=== PATIENT | female | born 1930 | race Caucasian/White ===

== ENCOUNTER → 2016-09-16 | Outpatient (CLI) | payer MEDICARE, OTHER ==
[~2016-09-16] MED LIST: ASPI325T32 PO; ATOR10TA23 PO; AZIT250T94 PO; CALC1TAB98 PO; LEVO112T2 PO; METO50TA16 PO; SLOMAG PO; VALS160T20 PO
--- NOTE | 2016-09-16 15:24 | RADRPT ---
PROCEDURE: US bilateral lower extremity veins. CLINICAL INDICATION: Bilateral leg pain and swelling. TECHNIQUE: Multiple longitudinal and transverse images of the bilateral lower extremity veins were obtained with ruvalcaba scale and color Doppler imaging. The common femoral vein, femoral vein, and popl iteal vein were evaluated. 2D grayscale measurements with compression sonography, color Doppler, and pulsed Doppler with augmentation. COMPARISON: No prior studies are available for comparison. FINDINGS: The right common femoral, femoral and popliteal veins are normally compressible throughout. Color f low demonstrates normal filling of the vessels. Normal waveforms are visualized and there is normal response to augmentation. The left common femoral and femoral veins are normally compressible throughout. Color flow demonstr ates normal filling of the vessels. The left popliteal vein is completely thrombosed with lack of flow and lack of compressibility. The left popliteal vein is dilated and contains echogenic thrombus. IMPRESSION: 1. Acute deep venous thrombosis of the left popliteal vein. 2. Otherwise normal bilateral lower extremity venous Doppler. Call report: A call report of the findings was made to Dr. Chinchilla on 09/16/2016 at 1515 hours. RPTAT: QQ .Ethan Restrepo MD, MD Date Time Electronically viewed and signed by .Ethan Restrepo MD, on 09/16/2016 15:24 .R/
== END | disposition home or self-care (01) ==
LOC: VAS 13:20
PROVIDERS: ATTEND Internal Medicine
DX: I82.432 Acute embolism and thrombosis of left popliteal vein (principal); R22.43 Localized swelling, mass and lump, lower limb, bilateral
CPT/HCPCS: 93970

== ENCOUNTER → 2016-09-19 | Outpatient (CLI) | payer MEDICARE, OTHER ==
[~2016-09-19] MED LIST changes: +IODIXANOL LOCM 100 ML BTL ONE; +IODIXANOL LOCM 50 ML BTL ONE; +SOD CHLORIDE 0.9% 100 ML ONE
--- NOTE | 2016-09-19 11:33 | RADRPT ---
PROCEDURE: CTA Chest and pulmonary angiogram. CLINICAL INDICATION: Chest pain and shortness of breath. TECHNIQUE: CT scan of the chest and CT pulmonary angiogram was performed on a multidetector high-r [employer] CT scanner. High-resolution thin slice coronal and sagittal imaging was obtained from the axial source images. 3-D volumetric rendered post processing was performed as well. The patient w as examined following the uncomplicated intravenous administration of 100 cc of Visipaque 320. The images were reviewed on a PACS workstation. The total exam CTDI equals 32.86, 13.31, and 2.40 and th e total exam DLP equals 666.48 mGy-cm. One or more of the following dose reduction techniques were used: Automated exposure control. Adjustment of the mA and/or kV according to patient size. Use of iterative reconstruction technique. COMPARISON: CT chest 04/20/2015. FINDINGS: CT chest: There is mild diffuse bronchial wall thickening. Minimal linear scarring is seen in the lung bases. No focal opacification, effusion, pneumothorax, edema, or nodules are seen. The central tracheobr onchial tree is clear. The mediastinum is unremarkable without evidence for mass or lymphadenopathy. The vascular structur es of the mediastinum are normal in course and caliber. There is markedly dilated right atrium. Th ere is small to moderate circumferential pericardial effusion. The axillary, subpectoral, and suprac lavicular regions are unremarkable. Imaging obtained through the upper abdomen is equally unremarkable. The adrenal glands are symmetri jose normal. The surrounding chest wall is unremarkable. The osseous structures are remarkable fo r degenerative spondylosis of the spine. CT pulmonary angiogram: No thrombus, clot, filling defect, or pulmonary web is identified. The pulmonary arteries are alisson l in caliber and morphology. No filling defect is present to suggest pulmonary embolism. There is no evidence for pulmonary arterial hypertension. IMPRESSION: 1. No evidence for pulmonary embolism. 2. Markedly dilated right atrium. Small to moderate circumferential pericardial effusion, not signi ficantly changed. 3. Mild diffuse bronchial wall thickening suggestive of nonspecific chronic inflammatory changes. No acute infiltrates. 4. Aortic and coronary artery calcifications. RPTAT: BB .Julian Galicia MD, MD Date Time Electronically viewed and signed by .Julian Galicia MD, on 09/19/2016 11:33 .O/
--- NOTE | 2016-09-19 11:49 | RADRPT ---
PROCEDURE: CT Abdomen and Pelvis with contrast. CLINICAL INDICATION: Abdominal pain TECHNIQUE: CT scan of the abdomen and pelvis with contrast was performed on a multi-detector high- resolution CT scanner. The patient was scanned following the uncomplicated intravenous administrati on of 100 cc of Visipaque 320. Coronal and sagittal reformatted images were obtained from the axial source images. Images were reviewed on a high-resolution PACS workstation. The total exam CTDI equa ls 32.86, 13.31, and 2.40 mGy and the total exam DLP equals 666.48 mGy-cm. One or more of the following dose reduction techniques were used: Automated exposure control. Adjustment of the mA and/or kV according to patient size. Use of iterative reconstruction technique. COMPARISON: CT abdomen and pelvis 01/14/2013 FINDINGS: CT abdomen: The lung bases are clear. The heart size is normal, without pericardial thickening or effusion. Th e liver is normal in size and density without focal mass or intrahepatic biliary dilatation. The sp sylvain is normal in size and homogeneous in density. The stomach is partially collapsed, but is gross ly unremarkable. The pancreas as visualized is normal. The gallbladder is surgically absent. There is no evidence for biliary dilatation. The adrenal glands are symmetric and normal. The kidneys a re symmetrically unremarkable as well. No renal calculus or obstructive uropathy or mass lesion is seen. The aorta is of normal caliber. Aortic vascular calcifications are present. There is no retroperit zaragoza lymphadenopathy. The dereje hepatis region is clear. The bowel and mesentery, as visualized, are equally unremarkable. CT pelvis: The small bowel loops situated within the pelvis are unremarkable. The pelvic organs are normal. T he pelvic sidewalls and inguinal regions are clear. The sigmoid colon and rectum are remarkable for sigmoid diverticulosis. No mass, lymphadenopathy, or free fluid is seen. No acute inflammation is seen. The bladder is normal. There is a right hip arthroplasty in anatomic alignment. There is mi ld dextroscoliosis of the lumbar spine centered at L2-L3. 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 The surrounding osseous structures are remarkable for multilevel degenerative changes i n the lower thoracic and lumbar spine. No osteolytic or osteoblastic lesion is detected. IMPRESSION: 1. No mass, lymphadenopathy, or focal acute inflammatory process is identified. 2. Status post cholecystectomy. No biliary ductal dilatation. 3. Aortoiliac atherosclerosis. 4. Unchanged incidental benign findings, as detailed above. RPTAT: BB .Julian Galicia MD, Date Time Electronically viewed and signed by .Julian Galicia MD, on 09/19/2016 11:48 .O/
== END | disposition home or self-care (01) ==
LOC: C/S 09:01
PROVIDERS: ATTEND Internal Medicine
DX: R07.9 Chest pain, unspecified (principal); R06.02 Shortness of breath; Z90.49 Acquired absence of other specified parts of digestive tract; I51.7 Cardiomegaly; I70.0 Atherosclerosis of aorta; I25.10 Atherosclerotic heart disease of native coronary artery without angina pectoris; R93.8 Abnormal findings on diagnostic imaging of other specified body structures
CPT/HCPCS: 71275; 74177; Q9967

== ENCOUNTER 2016-10-06 09:21 | Inpatient (IN) | payer MEDICARE, OTHER ==
[~2016-10-06] VITALS: Ht 167.6 cm; Wt 94.7 kg
[~2016-10-06 09:21] MED LIST changes: -IODIXANOL LOCM 100 ML BTL ONE; -IODIXANOL LOCM 50 ML BTL ONE; -SOD CHLORIDE 0.9% 100 ML ONE
--- NOTE | 2016-10-06 10:08 | RADRPT ---
PROCEDURE: Left foot series CLINICAL INDICATION: Left foot pain. TECHNIQUE: AP, oblique, and lateral views of the left foot were obtained. COMPARISON: None FINDINGS: No acute fracture or dislocations are seen. The osseous structures are well mineralized. The artic ular surfaces are normal. No soft tissue abnormalities are seen. Hammertoe deformities are seen. IMPRESSION: 1. No acute displaced fracture or dislocation. 2. Hammertoe deformities. RPTAT: HPNM Physician Ju Date Time Electronically viewed and signed by Physician Ju on 10/06/2016 10:07 /
--- NOTE | 2016-10-06 10:09 | RADRPT ---
PROCEDURE: XR Chest. CLINICAL INDICATION: Shortness of breath. TECHNIQUE: A single portable view of the chest was obtained. COMPARISON: 03/22/2014 FINDINGS: The aorta is tortuous and atherosclerotic. The cardiomediastinal silhouette is otherwise borderline enlarged. The lungs and pleural spaces are clear. The soft tissues and osseous structures demonst rate benign age related senescent changes. Left axillary surgical clips are once again seen. IMPRESSION: No acute cardiopulmonary disease. Borderline cardiomegaly. RPTAT: HPNM Physician Ju Date Time Electronically viewed and signed by Saurav Sen Physician on 10/06/2016 10:08 /
[2016-10-06 10:11] VITALS: TEMP 98.1
[2016-10-06] MEDS ORDERED: CALC500T91 PO (10:16)
[2016-10-06] MEDS ORDERED: FURO20TA3 PO (10:17)
[2016-10-06] MEDS ORDERED: VALS1TAB78 PO (10:19)
[2016-10-06] MEDS ORDERED: APIX5TAB PO (10:20)
[2016-10-06 10:21] LABS: ADD SCAN DIFF NO
[2016-10-06 10:27] LABS: BASOPHILS % 0.4 % (0.0-2.0); EOSINOPHILS # 0.5 10^3/ul (0.0-0.5); EOSINOPHILS % 4.8 % (0.0-7.0); HEMOGLOBIN 8.7 g/dl (12.0-16.0); LYMPHOCYTES # 1.2 10^3/ul (0.8-2.9); LYMPHOCYTES % 12.1 % (15.0-51.0); MEAN CORPUSCULAR HEMOGLOBIN 30.2 pg (29.0-33.0); MEAN CORPUSCULAR HGB CONC 32.2 g/dl (32.0-37.0); MEAN CORPUSCULAR VOLUME 93.8 fl (82.0-101.0); MEAN PLATELET VOLUME 10.9 fl (7.4-10.4); MONOCYTE # 0.8 10^3/ul (0.3-0.9); MONOCYTES % 8.5 % (0.0-11.0); NEUTROPHIL # 7.1 10^3/ul (1.6-7.5); NEUTROPHILS % 73.9 % (39.0-77.0); PLATELET COUNT 349 10^3/UL (140-415); RED BLOOD COUNT 2.88 10^6/ul (4.20-5.40); RED CELL DISTRIBUTION WIDTH 15.4 % (11.5-14.5); WHITE BLOOD COUNT 9.6 10^3/ul (4.8-10.8)
[2016-10-06 10:33] LABS: ALBUMIN 3.7 g/dl (3.3-4.9)
[2016-10-06 10:34] LABS: POTASSIUM 4.6 mmol/L (3.5-5.1)
[2016-10-06 10:35] LABS: CREATININE 2.05 mg/dl (0.44-1.00)
[2016-10-06 10:36] LABS: ALBUMIN/GLOBULIN RATIO 1.15; CALCIUM 9.1 mg/dl (8.4-10.2); TOTAL PROTEIN 6.9 g/dl (6.1-8.1)
[2016-10-06 10:48] LABS: TROPONIN-I 0.016 ng/ml (0.00-0.12)
--- NOTE | 2016-10-06 12:27 | ERA ---
ER Documentation Chief Complaint Date/Time DATE: 10/06/16 TIME: 12:17 Chief Complaint LEFT FOOT PAIN X 2 DAYS HPI 86-year-old woman with a recent history of left lower extremity DVT currently using apixaban presents with 1-2 weeks of bilateral lower extremity swelling mostly in her feet. Patient complains of left foot pain as well. She has had difficulty walking secondary to swelling and pain. She has been using furosemide daily without relief. Patient complains of generalized weakness as well. She has had no chest pain or shortness of breath, no fevers or chills, no cough, no headache or blurry vision, no loss of consciousness, no dysuria. ROS All systems reviewed and are negative except as per history of present illness. Medications Home Meds Active Scripts Magnesium Chloride* (Mag 64*) 64 Mg Tabsr, 64 MG PO TID for 30 Days, BOTTLE 2 Refills Prov:JANIE JENNINGS MD 03/24/14 Reported Medications Apixaban* (Eliquis*) 5 Mg Tablet, 5 MG PO BID, TAB 10/06/16 Valsartan-Hydrochlorothiazide (Valsartan-HCTZ) 160-25 Mg Tablet, 1 TAB PO DAILY , #30 TAB 10/06/16 Furosemide* (Furosemide*) 20 Mg Tablet, 20 MG PO DAILY, #60 TAB 10/06/16 Calcium Carbonate ([id number]) 500 Mg Tablet, 500 MG PO BID, TAB 10/06/16 Metoprolol Succinate* (Toprol XL*) 50 Mg Tab.er.24h, 50 MG PO BID, TAB 03/21/14 Aspirin (Aspirin) 325 Mg Tablet.dr, 325 MG PO DAILY 03/21/14 Levothyroxine Sodium* (Synthroid*) 112 Mcg Tablet, 112 MCG PO AC BREAKFAST, TAB 03/21/14 Atorvastatin (Lipitor) 10 Mg Tablet, 10 MG PO HS 04/30/12 Discontinued Reported Medications Calcium Carbonate/Vitamin D3 (Calcium + D Tablet) 1 Udtab Tablet, 1 UDTAB PO 03/21/14 Discontinued Scripts Azithromycin* (Zithromax*) 250 Mg Tab, 250 MG PO DAILY for 3 Days, 0 Refills Prov:JANIE JENNINGS MD 03/24/14 Valsartan* (Diovan*) 160 Mg Tab, 160 MG PO DAILY for 30 Days, BOTTLE 2 Refills Prov:JANIE JENNINGS MD 03/24/14 Allergies Allergies: Coded Allergies: No Known Allergy (Unverified , 03/21/14) PMhx/Soc Hypertension, left lower extremity DVT, dyslipidemia, hypothyroidism History of Surgery: No Anesthesia Reaction: No Hx Neurological Disorder: No Hx Respiratory Disorders: No Hx Cardiac Disorders: No Hx Psychiatric Problems: No Hx Miscellaneous Medical Probl: Yes (hypothyroidism, HTN, hyperlipidemia) Hx Alcohol Use: No Hx Substance Use: No Hx Tobacco Use: No Smoking Status: Never smoker FmHx Family History: No diabetes Physical Exam Vitals Vital Signs Date Time Temp Pulse Resp B/P Pulse Ox O2 Delivery O2 Flow Rate FiO2 10/06/16 10:11 98.1 95 16 129/64 99 Room Air 10/06/16 09:25 98.1 78 18 136/78 99 Physical Exam GENERAL: Well-developed, well-nourished, well-hydrated, in no apparent distress , looks nontoxic in appearance HEENT: Moist mucous membranes, pink conjunctiva, no cervical spine tenderness or step-off deformities, no goiter, no jaundice or icterus, extraocular movements intact without pain. No submandibular induration, and no pharyngeal erythema NEURO: Alert and oriented 3, cranial nerves II through XII intact bilaterally, pupils equal round reactive to light, no focal deficits or facial asymmetry, sensation intact distally Strength 5/5 in upper and lower extremities bilaterally CARDIAC: Regular rate and rhythm, no murmurs rubs or gallops LUNGS: Clear bilaterally no wheezing crackles or stridor ABDOMEN: Soft nontender, no guarding, no rigidity, no rebound, no psoas sign no obturator sign. Normoactive bowel sounds SKIN: Warm and dry to touch, no abrasions, contusions, or hematomas, no lacerations, no ecchymosis, no target lesions, and without ulcers EXTREMITIES: Patient has 1+ pitting edema in the ankles bilaterally, calves appear symmetrical, no there is no skin erythema or induration PSYCH: Normal affect without agitation or irritability Result Diagram: 10/06/1694410/06/16944 Results 24 hrs Laboratory Tests Test 10/06/16 09:45 Alanine Aminotransferase (ALT/SGPT) 14IU/L Albumin 3.7g/dl Albumin/Globulin Ratio 1.15 Alkaline Phosphatase 105IU/L Anion Gap 18 Aspartate Amino Transf (AST/SGOT) 18IU/L B-Type Natriuretic Peptide 365PG/ML Basophils # 0.010^3/ul Basophils % 0.4% Blood Urea Nitrogen 72mg/dl Calcium Level 9.1mg/dl Carbon Dioxide Level 27mmol/L Chloride Level 104mmol/L Creatinine 2.05mg/dl Direct Bilirubin 0.00mg/dl Eosinophils # 0.510^3/ul Eosinophils % 4.8% Globulin 3.20g/dl Glucose Level 100mg/dl Hematocrit 27.0% Hemoglobin 8.7g/dl Indirect Bilirubin 0.0mg/dl Lipase 256U/L Lymphocytes # 1.210^3/ul Lymphocytes % 12.1% Mean Corpuscular Hemoglobin 30.2pg Mean Corpuscular Hemoglobin Concent 32.2g/dl Mean Corpuscular Volume 93.8fl Mean Platelet Volume 10.9fl Monocytes # 0.810^3/ul Monocytes % 8.5% Neutrophils # 7.110^3/ul Neutrophils % 73.9% Nucleated Red Blood Cells # 0.010^3/ul Nucleated Red Blood Cells % 0.0/100WBC Platelet Count 47991^3/UL Potassium Level 4.6mmol/L Red Blood Count 2.8810^6/ul Red Cell Distribution Width 15.4% Sodium Level 144mmol/L Total Bilirubin 0.0mg/dl Total Protein 6.9g/dl Troponin I 0.016ng/ml White Blood Count 9.610^3/ul Procedures/MDM IV line was established patient was placed on environmental monitoring technician rhythm strip revealed a sinus rhythm at about 90 bpm with upright P and T waves. EKG performed, read by me: 92 bpm, normal sinus rhythm, normal axis, no acute ST segment changes, narrow QRS complex, with good R-wave progression in precordial leads. X-ray left foot 3V Interpreted by me: Bones: No fracture Joints: No dislocation Foreign body: None Chest X-ray 1V Interpreted by me: Soft Tissue: No acute abnormalities Bones: No acute abnormalities Mediastinum/Cardiac Silhouette/Lungs: No acute abnormalities CBC revealed anemia with a hemoglobin of 8.7, electrolytes revealed dehydration and renal failure with a BUN/creatinine of 72/2.1, liver function tests were unremarkable, troponin was negative, BNP was low. Given her difficulty ambulating, recent weakness, left lower extremity DVT, anemia, and peripheral edema we will admit [facility] for continued medical management under Dr. Chinchilla. Departure Diagnosis: Primary Impression: Symptomatic anemia Additional Impressions: DVT (deep venous thrombosis) Qualified Code: I82.402 - Acute deep vein thrombosis (DVT) of left lower extremity, unspecified vein Acute renal failure Qualified Code: N17.0 - Acute renal failure with tubular necrosis Peripheral edema Condition: SEVEN Dee MD Oct 06, 2016 12:26
[2016-10-06] MEDS: METOPROLOL (XL) 50 MG TAB PO SCH ×2 (13:00→20:58)
[2016-10-06] MEDS ORDERED: ASPIRIN (EC) 325 MG TAB PO SCH (13:00)
[2016-10-06] MEDS: CHOLECALCIFEROL 2,000 UNIT CAP PO SCH (13:00)
[2016-10-06] MEDS: APIXABAN 5 MG TABLET PO SCH ×2 (13:00→20:58)
[2016-10-06 13:02] LABS: INR 1.23; PARTIAL THROMBOPLASTIN TIME 27.9 Sec (25.0-35.0); PROTIME 15.6 Sec (12.2-14.2); PT RATIO 1.2
[2016-10-06] MEDS ORDERED: NACL 0.9% 3 ML SYG IV SCH (13:30)
[2016-10-06] MEDS ORDERED: DOCUSATE SODIUM 100 MG CAP PO PRN (13:30)
[2016-10-06] MEDS ORDERED: ONDANSETRON 4 MG INJ IV PRN (13:30)
[2016-10-06] MEDS ORDERED: HYDROCODONE/APAP (5/325) TAB PO PRN (13:30)
[2016-10-06] MEDS ORDERED: SODIUM CHLORIDE 0.9% 1L BAG IV SCH (13:30)
[2016-10-06] MEDS ORDERED: MAGNESIUM HYDROXIDE 30ML CUP PO PRN (13:30)
[2016-10-06] MEDS ORDERED: ZOLPIDEM 5 MG TAB PO PRN (13:30)
[2016-10-06 14:00] VITALS: BP 132/91; PULSE 90; RESP 16
[2016-10-06 14:05] LABS: AADO2 Arterial 17.2 mmHg (7.0-24.0); Allen Test ACCEPTAB; Arterial Base Excess 0 mmol/L (-3.0-3); Arterial COHb 0.3 % (0.0-3.0); Arterial Fraction of Oxyhgb 95.2 % (93.0-99.0); Arterial HCO3 24.6 mmol/L (22.0-26.0); Arterial MetHb 0.2 % (0.0-1.5); Arterial Total Hemglobin 9.5 g/dl (12.0-18.0); MODE ROOM AIR
--- NOTE | 2016-10-06 15:01 | RADRPT ---
Echocardiogram Report Patient Name: MADELINE BLUE Gender: Female Date: 1930 Study Date: 06-Oct-2016 Pc Tech: Jeffrey Kitchen [facility] Location: 632 Ref. Physician: JOSE LEVIN Quality: Technically Difficult Study Procedures: Transthoracic echocardiogram with complete 2D, M-Mode, and doppler examination. Indications: Edema. Pericardial Effusion. 2D/M Mode Doppler Measurement Value Normal Ranges Measurement Value Normal Ranges LVIDd 2D 4.5 3.5 - 5.6 cm AV Peak Rodolfo 1.7 m/sec LVIDs 2D 1.1 2.1 - 4.1 cm AV Peak PG 12.0 mmHg FS 2D 75.8 % LVOT Peak Rodolfo 1.2 m/sec LVPWd 2D 0.8 0.6 - 1.1 cm LVOT Peak PG 5.0 mmHg IVSd 2D 0.9 0.6 - 1.1 cm MV E Peak Rodolfo 0.8 m/sec IVS/LVPW 2D 1.1 MV A Peak Rodolfo 1.4 m/sec AoR Diam 2D 2.8 2.0 - 3.7 cm MV E/A 0.6 LA/Ao 2D 1 0 - 1 MV Decel Time 137 msec EDV 2D 93.6 cm3 MV E/A 0.6 ESV 2D 1.3 cm3 TR Peak Rodolfo 3.2 m/sec LA Dimen 2D 3.0 2.3 - 4.0 cm TR Peak PG 41.0 mmHg RVSP 44.0 mmHg Findings Left Ventricle: Hyperdynamic left ventricular systolic function. Normal left ventricular cavity size. Normal left ventricular wall thickness. Ejection fraction is visually estimated at 70 %. Tissue Doppler/Mitral Doppler indices are consistent with impaired relaxation (Stage I diastolic dysfunction). Right Ventricle: Normal right ventricular size. Normal right ventricular systolic function. Left Atrium: The left atrium is normal in size. Right Atrium: There is mild enlargement of right atrium. Mitral Valve: Mild mitral leaflet calcification. Mild mitral annular calcification. No mitral valve regurgitation is seen. Aortic Valve: No significant aortic stenosis or insufficiency. No hemodynamically significant aortic stenosis by doppler. Aortic cusps appear mildly calcified. Tricuspid Valve: Normal appearance of the tricuspid valve. Right ventricular systolic pressure is consistent with moderate pulmonary hypertension. Estimated peak PA systolic pressure 44 mmHg. There is moderate tricuspid regurgitation. Pulmonic Valve: Pulmonic valve not well visualized. There is trace pulmonic regurgitation. Pericardium: Small pericardial effusion without evidence of hemodynamic significance. There is fibrinous material seen in pericardial space adherent to visceral pericardium. Aorta: Normal aortic root. IVC: Normal size and normal respiratory collapse consistent with normal right atrial pressure. Conclusions Hyperdynamic left ventricular systolic function. Normal left ventricular cavity size. Normal left ventricular wall thickness. Ejection fraction is visually estimated at 70 %. Tissue Doppler/Mitral Doppler indices are consistent with impaired relaxation (Stage I diastolic dysfunction). Normal appearance of the tricuspid valve. Right ventricular systolic pressure is consistent with moderate pulmonary hypertension. Estimated peak PA systolic pressure 44 mmHg. There is moderate tricuspid regurgitation. Small pericardial effusion without evidence of hemodynamic significance. There is fibrinous material seen in pericardial space adherent to visceral pericardium. Compared with prior echo performed in 2013, there has been interval decrease in size of pericardial effusion. Electronically Signed By: Sarabjit Garcia 06-Oct-2016 15:00:10 -5400 Patient Name: MADELINE BLUE Study Date: 06-Oct-2016 [id number]
--- NOTE | 2016-10-06 15:11 | CONS ---
Date/Time of Note Date/Time of Note DATE: 10/06/16 TIME: 15:09 Assessment/Plan Assessment/Plan Chief Complaint/Hosp Course Impression/Plan: - foot pain- normal perfusion, foot studies pending - pericardial effusion- chronic mild-moderate, stable no evidence of HD significance. no further testing recommended at this time. 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 may be etiology of dyspnea. - edema- unclear etiology, resolved with diuretics. does have elevated right sided pressures. bnp relatively nl for age, possibly venous insuf vs. chronic dvt related. - seth- likely from diuresis, gentle hydration - dvt hx- on anticoag - h/o cad on ct scan- ok to stop asa, no active symptoms and on anticoag w anemia Problems: Consultation Date/Type/Reason Admit Date/Time Oct 06, 2016 at 11:43 Date of Consultation: Oct 07, 2016 Type of Consultation: Cardiology Reason for Consultation Dyspnea Referring Provider: JOSE LEVIN MD Hx of Present Illness Ms. 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 Smith as an outpatient. She has not been seen recently due to illness in her who passed recently. Pt was clinically stable from cardiac standpoint, but reports she has recent dyspnea x 2 months. Pt states it has been stable, but worse with exertion. She is not very active. Denies any pnd, ortophnea. Pt states she did have ble edema but this has been improving since taking lasix with KCL as outpatient as directed by her PCP Dr. Levin this week. Pt also with h/o of recurrent DVT and anemia. Pt denies any chest pain/pressure/ n/v/ dizziness/fainting. Pt admitted she states after worsening L foot pain in distal foot with walking. denies any cold/ painful foot at rest. denies trauma Constitutional: no complaints Eyes: no complaints ENT: no complaints Respiratory: shortness of breath Cardiovascular: edema Gastrointestinal: no complaints Musculoskeletal: other (foot pain) Skin: no complaints Neurologic: no complaints Psychological: nl mood/affect, no complaints Past Medical History Anemia (285.9) (D64.9) Arthritis, degenerative (715.90) (M19.90) right hip replacement in 2006 Breast cancer (174.9) (C50.919) - left lumpectomy with radiation but no chemotherapy in 1987 CAD (coronary artery disease), [place] coronary artery (414.01) (I25.10) - noted incidentally on CT pulmonary angiogram 05/10. Disc degeneration, lumbar (722.52) (M51.36) Essential hypertension (401.9) (I10) History of methicillin resistant Staphylococcus aureus infection (V12.04) ( Z86.14) Hypercholesterolemia (272.0) (E78.0) Hypothyroidism (244.9) (E03.9) Pericardial effusion (423.9) (I31.9)- incidentally noted mild to moderate pericardial effusion and 2012. stable last echo 2014 History of Secondary pulmonary hypertension (416.8) (I27.2 History of Acute Venous Thrombosis Of The Deep Vessels Of The Proximal Lower Extremity (453.41) Past Surgical History History of Breast Surgery Lumpectomy- with radiation History of Cataract Surgery- bilateral ' History of Cholecystectomy- open History of Hernia Repair - left inguinal'05/07with postoperative wound infection History of Tonsillectomy -child Family History Significant Family History: other ( No pertinent family history) Social History Alcohol Use: none Smoking Status: Never smoker Drug Use: none Exam/Review of Systems Vital Signs Vitals Vital Signs Date Time Temp Pulse Resp B/P Pulse Ox O2 Delivery O2 Flow Rate FiO2 10/06/16 12:29 87 18 136/74 97 Room Air 10/06/16 10:11 98.1 Exam Constitutional: alert, oriented, well developed Psych: nl mood/affect, no complaints Head: normocephalic Eyes: EOMI, nl conjunctiva ENMT: mucosa pink and moist, nl nasal mucosa & septum Neck: non-tender, supple, No jvd Respiratory: clear to auscultation, normal air movement Cardiovascular: nl pulses, regular rate and rhythm, systolic murmur Gastrointestinal: non-tender, soft Musculoskeletal: other (edema improved, no pitting. ) Extremities: normal pulses, No calf tenderness Neurological: SLOPE HOIST OPERATOR II-XII intact, nl mental status, nl speech, nl strength Skin: nl turgor, No rash or lesions Results Result Diagram: 10/06/16 0945 10/06/16 0945 Results 24 hrs Laboratory Tests Test 10/06/16 09:45 10/06/16 12:25 10/06/16 13:30 Alanine Aminotransferase (ALT/SGPT) 14 Albumin 3.7 Albumin/Globulin Ratio 1.15 Alkaline Phosphatase 105 Anion Gap 18 H Aspartate Amino Transf (AST/SGOT) 18 B-Type Natriuretic Peptide 365 Basophils # 0.0 Basophils % 0.4 Blood Urea Nitrogen 72 H Calcium Level 9.1 Carbon Dioxide Level 27 Chloride Level 104 Creatinine 2.05 H Direct Bilirubin 0.00 Eosinophils # 0.5 Eosinophils % 4.8 Globulin 3.20 Glucose Level 100 Hematocrit 27.0 L Hemoglobin 8.7 L Indirect Bilirubin 0.0 Lipase 256 Lymphocytes # 1.2 Lymphocytes % 12.1 L Mean Corpuscular Hemoglobin 30.2 Mean Corpuscular Hemoglobin Concent 32.2 Mean Corpuscular Volume 93.8 Mean Platelet Volume 10.9 H Monocytes # 0.8 Monocytes % 8.5 Neutrophils # 7.1 Neutrophils % 73.9 Nucleated Red Blood Cells # 0.0 Nucleated Red Blood Cells % 0.0 Platelet Count 349 Potassium Level 4.6 Red Blood Count 2.88 L Red Cell Distribution Width 15.4 H Sodium Level 144 Total Bilirubin 0.0 L Total Protein 6.9 Troponin I 0.016 White Blood Count 9.6 Activated Partial Thromboplast Time 27.9 INR International Normalized Ratio 1.23 Prothrombin Time 15.6 H Prothrombin Time Ratio 1.2 Arterial Blood HCO3 24.6 Arterial Blood Base Excess 0 Arterial Blood Oxygen Saturation 95.7 Mikey Test ACCEPTAB Arterial Blood Gas Puncture Site Right Radial Arterial Blood Carboxyhemoglobin 0.3 Arterial Blood Date Drawn 10/06/2016 1:50:07 PM Arterial Blood Methemoglobin 0.2 Arterial Blood pCO2 (Temp correct) 39.6 Arterial Blood pH (Temp corrected) 7.411 Arterial Blood pO2 (Temp corrected) 85.1 Blood Gas A-a O2 Differential 17.2 Blood Gas Modality ROOM AIR Blood Gas Notified Time 10/06/2016 2:05:37 PM Blood Gas Notified Whom JLD Blood Gas Specimen Source Blood arterial Blood Gas Temperature 37.0 FiO2 21.0 Oxyhemoglobin Percent 95.2 Total Hemoglobin 9.5 L Medications Medications Current Medications Apixaban (Eliquis) 2.5 mg BID PO ; Start 10/06/16 at 13:00 Aspirin (Ecotrin) 81 mg DAILY PO ; Start 10/06/16 at 13:00 Atorvastatin Calcium (Lipitor) 10 mg HS PO ; Start 10/06/16 at 21:00 Calcium Carbonate (Oyster Shell Calcium) 1.25 gm BID PO ; Start 10/06/16 at 21: 00 Magnesium Chloride (Mag 64) 64 mg TID PO ; Start 10/06/16 at 15:00 Metoprolol Succinate (Toprol Xl) 50 mg BID PO ; Start 10/06/16 at 13:00 Pantoprazole (Protonix Tab) 40 mg DAILY@06 PO ; Start 10/06/16 at 13:00 Cholecalciferol 2000 unit 2,000 unit DAILY PO ; Start 10/06/16 at 13:00 Sodium Chloride (NS) 1,000 ml @ 60 mls/hr [id number] IV ; Start 10/06/16 at 13:14 Ondansetron HCl (Zofran Inj) 4 mg Q6H PRN IV NAUSEA AND/OR VOMITING; Start at 13:30 Acetaminophen (Tylenol Tab) 650 mg Q6H PRN PO PAIN LEVEL 1-3 OR FEVER; Start at 13:30 Acetaminophen/ Hydrocodone Bitart ([place] (5/325)) 1 tab Q6H PRN PO MODERATE PAIN LEVEL 4-6; Start 10/06/16 at 13:30 Acetaminophen/ Hydrocodone Bitart ([place] (5/325)) 2 tab Q6H PRN PO SEVERE PAIN LEVEL 7-10; Start 10/06/16 at 13:30 Docusate Sodium (Colace) 100 mg Q12H PRN PO CONSTIPATION; Start 10/06/16 at 13: 30 Magnesium Hydroxide (Milk Of Mag) 30 ml DAILY PRN PO CONSTIPATION; Start at 13:30 Zolpidem Tartrate (Ambien) 5 mg QHS PRN PO SLEEP; Start 10/06/16 at 13:30 Procedures Procedures CXR images reviewed, negative arterial studies images reviewed no hd significant lesion, mil atherosclerosis EKG reviewed: sinus rhythm, rate 99, incomplete rbbb LUDWIN DEVLIN Oct 06, 2016 15:11
[2016-10-06] MEDS: SOD CHLORIDE 0.9% 1,000 ML IV SCH (16:25)
[2016-10-06] MEDS: PANTOPRAZOLE (EC) 40 MG TAB PO SCH (16:27)
[2016-10-06] MEDS: MAGNESIUM CHLORIDE (SR) 64 MG TAB PO SCH (16:27)
--- NOTE | 2016-10-06 17:03 | RADRPT ---
PROCEDURE: US bilateral lower extremity arteries. CLINICAL INDICATION: Bilateral leg pain. Claudication that interferes significantly with the steve ent's lifestyle. Left foot pain with decreased pulses. TECHNIQUE: Multiple longitudinal and transverse images of the bilateral lower extremity arteries w ere obtained with ruvalcaba scale, pulsed Doppler, and color Doppler imaging. COMPARISON: No prior studies are available for comparison. FINDINGS: Right COVERSTITCH MACHINE OPERATOR:102 cm/sec PSFA:111 cm/sec MSFA:107 cm/sec DSFA:117 cm/sec POP:100 cm/sec LINE HAUL TRUCK DRIVER:42 cm/sec DPA:25 cm/sec Left COVERSTITCH MACHINE OPERATOR:85 cm/sec PSFA:84 cm/sec MSFA:78 cm/sec DSFA:57 cm/sec POP:70 cm/sec LINE HAUL TRUCK DRIVER:67 cm/sec DPA:20 cm/sec The right ankle-brachial index is 1.2 and the left ankle-brachial index is 1.2. There is normal triphasic flow throughout bilaterally. Minimal plaque is present in the femoral and popliteal systems. IMPRESSION: 1. Mild plaque formation without evidence for hemodynamically significant stenosis or occlusion. RPTAT: QQ .Ethan Restrepo MD, MD Date Time Electronically viewed and signed by .Ethan Restrepo MD, MD on 10/06/2016 17:03 .R/
[2016-10-06 17:08] VITALS: Ht 167.6 cm; Wt 94.7 kg
[2016-10-06 20:37] VITALS: BP 139/65; RESP 18
[2016-10-06] MEDS: ATORVASTATIN 10 MG TAB PO SCH (20:57)
[2016-10-06] MEDS: CALCIUM CARBONATE 1.25 GM TAB PO SCH (20:57)
[2016-10-06 21:21] LABS: ADD UMIC YES; URINE BILIRUBIN (Dip) NEGATIVE (NEGATIVE); URINE BLOOD (Dip) 1+ (NEGATIVE); URINE COLOR LT. YELLOW (YELLOW); URINE GLUCOSE (Dip) NEGATIVE (NEGATIVE); URINE KETONES (Dip) NEGATIVE (NEGATIVE); URINE LEUKOCYTE ESTERASE (Dip) NEGATIVE (NEGATIVE); URINE NITRITE (Dip) NEGATIVE (NEGATIVE); URINE TOTAL PROTEIN (Dip) NEGATIVE (NEGATIVE); URINE UROBILINOGEN (Dip) 0.2 E.U./dL (0.1-1.0)
[2016-10-06 21:34] LABS: BACTERIA,URINE FEW
[2016-10-07] MEDS: MAGNESIUM CHLORIDE (SR) 64 MG TAB PO SCH ×4 (00:18→20:56)
[2016-10-07 05:13] LABS: ADD SCAN DIFF NO
[2016-10-07 05:21] LABS: BASOPHILS % 0.4 % (0.0-2.0); EOSINOPHILS # 0.4 10^3/ul (0.0-0.5); EOSINOPHILS % 5.9 % (0.0-7.0); HEMATOCRIT 25.4 % (37.0-47.0); LYMPHOCYTES % 13.9 % (15.0-51.0); MEAN CORPUSCULAR HEMOGLOBIN 29.2 pg (29.0-33.0); MEAN CORPUSCULAR HGB CONC 31.5 g/dl (32.0-37.0); MEAN CORPUSCULAR VOLUME 92.7 fl (82.0-101.0); MEAN PLATELET VOLUME 10.7 fl (7.4-10.4); MONOCYTE # 0.6 10^3/ul (0.3-0.9); MONOCYTES % 8.2 % (0.0-11.0); NEUTROPHIL # 5.3 10^3/ul (1.6-7.5); NEUTROPHILS % 71.2 % (39.0-77.0); PLATELET COUNT 316 10^3/UL (140-415); RED BLOOD COUNT 2.74 10^6/ul (4.20-5.40); RED CELL DISTRIBUTION WIDTH 15.2 % (11.5-14.5); WHITE BLOOD COUNT 7.4 10^3/ul (4.8-10.8)
[2016-10-07 05:30] LABS: IRON 27 ug/dl (35-150)
[2016-10-07 05:33] LABS: MAGNESIUM 1.8 mg/dl (1.7-2.5); PHOSPHORUS 3.5 mg/dl (2.5-4.9)
[2016-10-07 05:39] LABS: TOTAL IRON BINDING CAPACITY 317 ug/dl (241-421)
[2016-10-07] MEDS: PANTOPRAZOLE (EC) 40 MG TAB PO SCH (05:53)
[2016-10-07] MEDS: SOD CHLORIDE 0.9% 1,000 ML IV SCH ×2 (05:54→09:52)
[2016-10-07 06:10] LABS: FERRITIN 36.9 ng/ml (11.1-264.0)
--- NOTE | 2016-10-07 06:57 | HP ---
DATE OF ADMISSION: 10/06/2016 IDENTIFYING DATA: The patient is an 86-year-old female admitted to the hospital with persistent low er extremity edema, intermittent wheezing and anemia. HISTORICAL EVENTS: Her present illness began in mid-August of this year when she presented for he r usual physical and at that time had moderate to severe lower extremity edema. At that time, she h ad no other clinical evidence of congestive heart failure. She underwent a noninvasive venous vascu lar study of the lower extremities. This revealed a left popliteal vein DVT. Soon thereafter on she underwent a CT pulmonary angiogram and this revealed no evidence of a pulmonary embolus as well as CT of the abdomen and pelvis that revealed no retroperitoneal adenopathy. Of note, is t hat she had an unchanged small to moderate pericardial effusion (see below). She was started on Las ix 40 mg daily along with Micro-K10 mEq per day and on followup approximately 5 days ago she still h ad moderate edema. Because of her persistent symptoms of intermittent wheezing, dyspnea on exertion and more importantly her hematocrit that fell from a level of 35.6 on 09/16/2006 to 27.2 hospitaliz ation was recommended. Of note was that her iron studies on 09/09/2016 were unrevealing for iron de ficiency. Her BNP level was 165 on 10/01/2016 and she had mild renal insufficiency. Her baseline c reatinine ranging 1.1 to 1.2 was 1.6 on 09/30/2016; I thought this related to attempt at diuresis. She denies symptoms of gastrointestinal bleeding. She denies orthopnea or PND, has had intermittent dry cough. PAST MEDICAL HISTORY: 1. Includes a nuclear stress study in 2007 that was normal. 2. History of sciatica, now quiescent. 3. Hypertension, longstanding. 4. Hyperlipidemia. 5. Cholecystectomy. 6. Right hip replacement in 2004. 7. Cancer of the left breast, undergoing radiation in 1997. 8. Bilateral cataract surgery. 9. Colonoscopy in 05/2011 was unrevealing. 10. Left inguinal hernia repair in 04/2012, she developed a postoperative wound infection that reso lved with prolonged antibiotics. 11. Mild acute renal failure, thought secondary to vancomycin. 12. Edema that was noted in 05/2013, noninvasive venous vascular study did reveal evidence of a rig ht peroneal thrombosis. She was treated with Coumadin for approximately 4 months, coagulopathy eval uation was negative with repeat noninvasive venous vascular study in 03/[address] pulmonary angiog [place] that was negative.* 13. Asymptomatic pericardial effusion, mild to moderate noted in 04/[address] Jaylen cordoba- , this remained stable. 14. History of mild hypomagnesemia. 15. Hypothyroidism. ALLERGIES OR INTOLERANCES: INCLUDE: 1. DETROL. 2. DIFLUCAN. 3. QUESTIONABLE VANCOMYCIN. FAMILY HISTORY: Positive for breast cancer. MEDICATIONS: 1. Aspirin 325 mg per day. 2. Vitamin D 2000 units per day. 3. Slow-Mag 1 per day. 4. Atorvastatin 10 per day. 5. Metoprolol 50 mg per day. 6. Diovan 160/25 per day. 7. Lasix 40 mg per day. 8. Micro-K10 mEq 2 per day. 9. Synthroid 0.112 mg per day. 10. Eliquis 5 mg b.i.d. IMPRESSION: 1. Persistent lower extremity edema, probably related to venous insufficiency given BMP that is unr evealing. CT scan that revealed no PE or CHF. Hospitalization needed for intravenous diuretics and to monitor renal function. 2. History of pericardial effusion will need to reassess this with an echo. We will ask cardiology to see. 3. Anemia, must exclude GI bleeding given the treatment with Eliquis. PLAN: Admit. Cardiology to see. Echocardiogram to be obtained. Stool for OB. GI evaluation pendin g stool studies, IV Lasix and potassium monitoring renal function as noted above. Dictated By: JOSE SCHERER/FRANCIE Conf#: [id number] DID#: [id number]
[2016-10-07 07:29] VITALS: BP 131/61; RESP 18
[2016-10-07 08:31] LABS: ALBUMIN 3.3 g/dl (3.3-4.9); POTASSIUM 4.4 mmol/L (3.5-5.1)
[2016-10-07 08:33] LABS: CREATININE 1.7 mg/dl (0.44-1.00)
[2016-10-07] MEDS: LEVOTHYROXINE 112 MCG TAB PO SCH (08:33)
[2016-10-07 08:34] LABS: ALBUMIN/GLOBULIN RATIO 1.13; CALCIUM 8.9 mg/dl (8.4-10.2); TOTAL PROTEIN 6.2 g/dl (6.1-8.1)
[2016-10-07] MEDS: CALCIUM CARBONATE 1.25 GM TAB PO SCH ×2 (08:34→20:55)
[2016-10-07] MEDS: APIXABAN 5 MG TABLET PO SCH ×2 (08:34→20:56)
[2016-10-07] MEDS: METOPROLOL (XL) 50 MG TAB PO SCH ×2 (08:34→20:56)
[2016-10-07] MEDS: CHOLECALCIFEROL 2,000 UNIT CAP PO SCH (08:34)
--- NOTE | 2016-10-07 08:42 | PN ---
Date/Time of Note Date/Time of Note DATE: 10/07/16 TIME: 08:37 Assessment/Plan VTE Prophylaxis VTE Prophylaxis Intervention: other Lines/Catheters IV Catheter Type (from Nrs): Peripheral IV Urinary Cath still in place: No Assessment/Plan Assessment/Plan 1. DVT, recurrent, now on eliquis, hemaotlogy to see, prior coag w/u was neg, occult malig must be considered 2. Inc anemia, iron def, stool ob pending, iv iron ordered and procrit, gi to see, renal insuff contrib, BDL low b12 level, homocysteine and MMA ordered as well as Folic acid 3. BP, controlled 4. Edema resolved, sec to venous insuff 5. ARF sec to overdiuresis, now receiving NS Subjective 24 Hr Interval Summary Respiratory: No shortness of breath Cardiovascular: No chest pain Gastrointestinal: no complaints Genitourinary: no complaints Neurologic: other (legs ache but she has no pain plantar left foot at rest) Exam/Review of Systems Vital Signs Vitals Vital Signs Date Time Temp Pulse Resp B/P Pulse Ox O2 Delivery O2 Flow Rate FiO2 10/07/16 07:29 98.0 98 18 131/61 95 10/06/16 14:00 Room Air Intake and Output 10/06/16 10/06/16 10/07/16 15:00 23:00 07:00 Intake Total 960 ml 1180 ml Balance 960 ml 1180 ml Exam Neck: No jvd Gastrointestinal: soft Musculoskeletal: other (no pain to palp plantar left foot) Extremities: No edema Results Result Diagram: 10/07/16 0452 10/07/16 0452 Results 24 hrs Laboratory Tests Test 10/06/16 09:45 10/06/16 12:25 10/06/16 13:30 10/06/16 20:05 Alanine Aminotransferase (ALT/SGPT) 14 Albumin 3.7 Albumin/Globulin Ratio 1.15 Alkaline Phosphatase 105 Anion Gap 18 H Aspartate Amino Transf (AST/SGOT) 18 B-Type Natriuretic Peptide 365 Basophils # 0.0 Basophils % 0.4 Blood Urea Nitrogen 72 H Calcium Level 9.1 Carbon Dioxide Level 27 Chloride Level 104 Creatinine 2.05 H Direct Bilirubin 0.00 Eosinophils # 0.5 Eosinophils % 4.8 Globulin 3.20 Glucose Level 100 Hematocrit 27.0 L Hemoglobin 8.7 L Indirect Bilirubin 0.0 Lipase 256 Lymphocytes # 1.2 Lymphocytes % 12.1 L Mean Corpuscular Hemoglobin 30.2 Mean Corpuscular Hemoglobin Concent 32.2 Mean Corpuscular Volume 93.8 Mean Platelet Volume 10.9 H Monocytes # 0.8 Monocytes % 8.5 Neutrophils # 7.1 Neutrophils % 73.9 Nucleated Red Blood Cells # 0.0 Nucleated Red Blood Cells % 0.0 Platelet Count 349 Potassium Level 4.6 Red Blood Count 2.88 L Red Cell Distribution Width 15.4 H Sodium Level 144 Total Bilirubin 0.0 L Total Protein 6.9 Troponin I 0.016 White Blood Count 9.6 Activated Partial Thromboplast Time 27.9 INR International Normalized Ratio 1.23 Prothrombin Time 15.6 H Prothrombin Time Ratio 1.2 Arterial Blood HCO3 24.6 Arterial Blood Base Excess 0 Arterial Blood Oxygen Saturation 95.7 Mikey Test ACCEPTAB Arterial Blood Gas Puncture Site Right Radial Arterial Blood Carboxyhemoglobin 0.3 Arterial Blood Date Drawn 10/06/2016 1:50:07 PM Arterial Blood Methemoglobin 0.2 Arterial Blood pCO2 (Temp correct) 39.6 Arterial Blood pH (Temp corrected) 7.411 Arterial Blood pO2 (Temp corrected) 85.1 Blood Gas A-a O2 Differential 17.2 Blood Gas Modality ROOM AIR Blood Gas Notified Time 10/06/2016 2:05:37 PM Blood Gas Notified Whom JLD Blood Gas Specimen Source Blood arterial Blood Gas Temperature 37.0 FiO2 21.0 Oxyhemoglobin Percent 95.2 Total Hemoglobin 9.5 L Urine Bacteria FEW Urine Bilirubin NEGATIVE Urine Clarity CLEAR Urine Color LT. YELLOW Urine Epithelial Cells FEW Urine Glucose NEGATIVE Urine Hemoglobin 1+ H Urine Ketones NEGATIVE Urine Leukocyte Esterase NEGATIVE Urine Microscopic RBC 5-10 Urine Microscopic WBC 0-2 Urine Nitrite NEGATIVE Urine Specific [place] 1.010 Urine Total Protein NEGATIVE Urine Urobilinogen 0.2 E.U./dL Urine pH 5.5 Test 10/07/16 04:52 Alanine Aminotransferase (ALT/SGPT) 24 Albumin 3.3 Albumin/Globulin Ratio 1.13 Alkaline Phosphatase 101 Anion Gap 16 Aspartate Amino Transf (AST/SGOT) 29 Basophils # 0.0 Basophils % 0.4 Blood Urea Nitrogen 58 H Calcium Level 8.9 Carbon Dioxide Level 26 Chloride Level 104 Creatinine 1.70 H Direct Bilirubin 0.00 Eosinophils # 0.4 Eosinophils % 5.9 Ferritin 36.9 Globulin 2.90 Glucose Level 109 Hematocrit 25.4 L Hemoglobin 8.0 L Indirect Bilirubin 0.0 Iron Level 27 L Lymphocytes # 1.0 Lymphocytes % 13.9 L Magnesium Level 1.8 Mean Corpuscular Hemoglobin 29.2 Mean Corpuscular Hemoglobin Concent 31.5 L Mean Corpuscular Volume 92.7 Mean Platelet Volume 10.7 H Monocytes # 0.6 Monocytes % 8.2 Neutrophils # 5.3 Neutrophils % 71.2 Nucleated Red Blood Cells # 0.0 Nucleated Red Blood Cells % 0.0 Percent Iron Saturation 9 L Phosphorus Level 3.5 Platelet Count 316 Potassium Level 4.4 Prealbumin 21.8 Red Blood Count 2.74 L Red Cell Distribution Width 15.2 H Sodium Level 142 Total Bilirubin 0.0 L Total Iron Binding Capacity 317 Total Protein 6.2 Vitamin B12 Level 241 White Blood Count 7.4 # Medications Medications Current Medications Apixaban (Eliquis) 2.5 mg BID PO Last administered on 10/06/16 20:58; Admin Dose 2.5 MG; Start 10/06/16 at 13:00 Aspirin (Ecotrin) 81 mg DAILY PO ; Start 10/06/16 at 13:00 Atorvastatin Calcium (Lipitor) 10 mg HS PO Last administered on 10/06/16 20:57 ; Admin Dose 10 MG; Start 10/06/16 at 21:00 Calcium Carbonate (Oyster Shell Calcium) 1.25 gm BID PO Last administered on 20:57; Admin Dose 1.25 GM; Start 10/06/16 at 21:00 Magnesium Chloride (Mag 64) 64 mg TID PO Last administered on 10/07/16 00:18; Admin Dose 64 MG; Start 10/06/16 at 15:00 Metoprolol Succinate (Toprol Xl) 50 mg BID PO Last administered on 10/06/16 20 :58; Admin Dose 50 MG; Start 10/06/16 at 13:00 Pantoprazole (Protonix Tab) 40 mg DAILY@06 PO Last administered on 10/07/16 05 :53; Admin Dose 40 MG; Start 10/06/16 at 13:00 Cholecalciferol 2000 unit 2,000 unit DAILY PO ; Start 10/06/16 at 13:00 Sodium Chloride (NS) 1,000 ml @ 60 mls/hr [id number] IV Last administered on 3/13 /17at 16:25; Admin Dose 60 MLS/HR; Start 10/06/16 at 13:14 Ondansetron HCl (Zofran Inj) 4 mg Q6H PRN IV NAUSEA AND/OR VOMITING; Start at 13:30 Acetaminophen (Tylenol Tab) 650 mg Q6H PRN PO PAIN LEVEL 1-3 OR FEVER; Start at 13:30 Acetaminophen/ Hydrocodone Bitart ([place] (5/325)) 1 tab Q6H PRN PO MODERATE PAIN LEVEL 4-6; Start 10/06/16 at 13:30 Acetaminophen/ Hydrocodone Bitart ([place] (5/325)) 2 tab Q6H PRN PO SEVERE PAIN LEVEL 7-10; Start 10/06/16 at 13:30 Docusate Sodium (Colace) 100 mg Q12H PRN PO CONSTIPATION; Start 10/06/16 at 13: 30 Magnesium Hydroxide (Milk Of Mag) 30 ml DAILY PRN PO CONSTIPATION; Start at 13:30 Zolpidem Tartrate 5 mg 5 mg QHS PRN PO SLEEP; Start 10/06/16 at 13:30 Ferric Sodium Gluconate Complex/ Sodium Chloride (Ferrlecit/NS) 110 ml @ 110 mls/hr Q24H IVPB ; Start 10/07/16 at 08:30; Stop 10/11/16 at 09:29; Status UNV Epoetin Darvin (Epogen (Neserd)) 10,000 units TuThSa@17 SC ; Start 10/07/16 at 17: 00; Status UNV JOSE LEVIN MD Oct 07, 2016 08:41
--- NOTE | 2016-10-07 09:00 | RADRPT ---
PROCEDURE: MRI OF THE LEFT ANKLE. CLINICAL INDICATION: Plantar foot pain. TECHNIQUE: Multiple MR pulse sequences in multiple planes were obtained. Images were interpreted on high-resolution PACS system. COMPARISON: Correlation with radiographs from 10/06/2016 FINDINGS: Tendons: There is mild peroneal tenosynovitis without tear or subluxation. The long flexor tendons are well visualized. There is moderate to high-grade partial thickness tearing of the posterior tib ialis tendon at the level the medial malleolus with poor visualization of the tendon at this level. Insertional tendinosis is also noted. The long extensor tendons are maintained. Osseous structures: There is pes planovalgus deformity with a marked amount of edema at the critical angle of Gisane and cystic suggestive of impingement. There is synovitis in this region. Mild cys tic changes also seen at the distal fibular tip seen on the coronal sequence image 16 also suggestiv e of subfibular impingement. 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 There is moderate arthrosis at the navicular and medial cuneiform articulation w ith a subchondral cyst. A very small osteochondral defect is seen at the medial talar dome measuring 3 mm with overlying chondral fibrillation. There is uncovering of the talar head at the talonavicul ar joint. Ligaments: The syndesmotic ligaments are intact. There is marked attenuation of the anterior talofi bular and calcaneofibular ligaments related to remote injury and incomplete scar remodelling. The d eep deltoid ligament fibers are tender as well related to remote injury. The superficial deltoid is grossly maintained. Plantar fascia: There is moderate thickening of the central cord plantar fascia with minimal intrasu bstance tearing seen on the sagittal sequence image 14. No high-grade tear or retraction is identif ied. There is chronic denervation effect at the abductor digiti mini. Other findings: The fat planes in the sinus tarsi are preserved. The contents of the tarsal tunnel are maintained. IMPRESSION: 1. Evidence of pes planovalgus deformity with subfibular impingement and impingement at the critica l angle of Gisane. 2. Marked attenuation of the posterior tibialis tendon at the level of the medial malleolus from at least high-grade partial thickness tearing and suggesting posterior tibial tendon dysfunction. 3. Bony bridging versus marked narrowing at the lateral cuneiform and cuboid margins representing e ither tarsal coalition or less likely degenerative or from sequelae of remote trauma. 4. No acute fracture. 5. Mild degenerative changes of the tibiotalar joint. 6. Moderate plantar fasciitis with minimal intrasubstance tearing or strain at the medial band orig in. RPTAT: AA .Santana Angeles MD, MD Date Time Electronically viewed and signed by .Santana Angeles MD, MD on 10/07/2016 08:59 .d/
[2016-10-07] MEDS ORDERED: MAGNESIUM SULFATE 2 GM/50 ML 50 ML IVPB ONE (09:30)
[2016-10-07] MEDS: SOD FERRIC GLUC COMPLX 125 MG in SOD CHLORIDE 0.9% 100 ML IVPB SCH (09:51)
[2016-10-07] MEDS ORDERED: MOMETASONE INH SCH (10:00)
--- NOTE | 2016-10-07 12:13 | CONS ---
DATE OF ADMISSION: 10/07/2016 DATE OF CONSULTATION: 10/07/2016 TYPE OF CONSULTATION: Gastroenterology. Thank you for having me see this patient. HISTORY OF PRESENT ILLNESS: As you know, she is an 86-year-old woman who I am asked to see scott carter a new onset iron deficiency anemia. Of note, her laboratory data shows an iron, iron binding rati o of 9% with hematocrit 25. On speaking with the patient, her only gastrointestinal complaint is th at of periodic indigestion. She denies any heartburn, dysphagia, odynophagia, nausea or vomiting. She denies any rectal bleeding, melena, diarrhea, constipation. Although previous notes detail a co lonoscopy in May 2011, I do not have the records of that report. The patient is unaware of hav ing had a colonoscopy in the past. She is unaware of any peptic ulcer disease. She has never had a n endoscopy. Of note, she was hospitalized in August because of a DVT and is currently on anticoa gulation with Eliquis for that. PAST MEDICAL HISTORY: Significant for hospitalization for right hip replacement, cholecystectomy, l eft mastectomy for cancer, cataract surgery and left inguinal hernia. ADULT ILLNESSES: Significant for sciatica, hypertension, hyperlipidemia, hypothyroidism, breast can cer and deep venous thrombosis. CHILDHOOD: Denies rheumatic fever or scarlet fever. ALLERGIES: INCLUDE DETROL, DIFLUCAN AND POSSIBLY VANCOMYCIN. INJURIES: None. MEDICATIONS: Currently include: 1. Epogen. 2. Asmanex. 3. Ferric gluconate. 4. Magnesium. 5. Synthroid. 6. Lipitor. 7. Calcium. 8. Zofran. 9. Tylenol p.r.n. 10. [place]. 11. Colace. 12. Milk of magnesia. 13. Ambien. 14. Eliquis. 15. Toprol 16. Protonix. 17. Vitamin D. 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 She stopped smoking in the . She occasionally still has a glass of wine. FAMILY HISTORY: Noncontributory. REVIEW OF SYSTEMS: Negative except as noted above. PHYSICAL EXAMINATION: GENERAL: Shows the patient is a well-developed elderly white female lying in bed. VITAL SIGNS: Temperature 98, pulse 98, respirations 18, blood pressure 131/61. SKIN: Clear. HEENT: Negative. LUNGS: Clear to percussion and auscultation. CARDIAC: No murmurs, rubs, gallops. ABDOMEN: Soft, nontender, liver 8 cm, spleen not palpable, no masses. RECTAL: Brown stool. LABORATORY DATA: Remarkable for white count 7.4, hemoglobin 8, hematocrit 25, platelets 316, sed ra te 93, PT/INR 1.23, PTT 27.9. Chemistries: BUN 58, creatinine 1.7. AST 29, ALT 24, alkaline phosp hatase 101. Iron binding ratio 9%, ferritin 36.9. IMPRESSION: Based on the lab work, the patient does have an iron deficiency anemia. I note that jeanette baer has been on anticoagulation. Her only gastrointestinal complaint is indigestion and therefore an endoscopy is warranted at one point. It is unclear as to whether the patient has had a colonoscopy recently. Should this not be the case, a colonoscopy would be warranted as well. This situation is complicated by her Eliquis usage given her recent DVT. In that regard, I await discussions with Dr Nithin Chinchilla regarding timing of possible procedures. PLAN: 1. We will discuss above with Dr. Chinchilla. 2. Continue empiric pantoprazole. 3. Check stools for occult blood. 4. Follow laboratory data. 5. Further recommendations to follow above and clinical course. Thank you for having me see this patient. Dictated By: DACIA ARMSTRONG/FRANCIE Conf#: [id number] DID#: [id number]
[2016-10-07] MEDS: ACETAMINOPHEN 325 MG TAB PO PRN (13:10)
[2016-10-07] MEDS: NYSTATIN 30 GM POWDER BTL TOP SCH (13:10)
[2016-10-07] MEDS ORDERED: EPOETIN ALFA (NESRD) 3,000 UNITS/ML VIAL SC SCH (17:00)
[2016-10-07] MEDS: EPOETIN 10000 UNITS/1 ML INJ (ESRD) SC SCH (18:55)
[2016-10-07] MEDS: HYDROCODONE/APAP (5/325) TAB PO PRN ×2 (19:00→23:47)
[2016-10-07 20:46] VITALS: BP 128/56; RESP 18
[2016-10-07] MEDS: ATORVASTATIN 10 MG TAB PO SCH (20:56)
[2016-10-07] MEDS: MOMETASONE 0.24 GM INHALER INH SCH (20:57)
[2016-10-08] MEDS: SOD CHLORIDE 0.9% 1,000 ML IV SCH ×2 (04:03→22:50)
[2016-10-08] MEDS: PANTOPRAZOLE (EC) 40 MG TAB PO SCH (05:51)
[2016-10-08] MEDS: HYDROCODONE/APAP (5/325) TAB PO PRN (05:52)
[2016-10-08 06:17] LABS: ADD SCAN DIFF NO
[2016-10-08 06:28] LABS: BASOPHILS % 0.3 % (0.0-2.0); EOSINOPHILS # 0.4 10^3/ul (0.0-0.5); EOSINOPHILS % 4.9 % (0.0-7.0); HEMATOCRIT 25.9 % (37.0-47.0); LYMPHOCYTES # 0.8 10^3/ul (0.8-2.9); MEAN CORPUSCULAR HEMOGLOBIN 29.4 pg (29.0-33.0); MEAN CORPUSCULAR HGB CONC 30.9 g/dl (32.0-37.0); MEAN CORPUSCULAR VOLUME 95.2 fl (82.0-101.0); MEAN PLATELET VOLUME 11.4 fl (7.4-10.4); MONOCYTE # 0.7 10^3/ul (0.3-0.9); MONOCYTES % 8.6 % (0.0-11.0); NEUTROPHIL # 6.6 10^3/ul (1.6-7.5); NEUTROPHILS % 76.6 % (39.0-77.0); PLATELET COUNT 297 10^3/UL (140-415); RED BLOOD COUNT 2.72 10^6/ul (4.20-5.40); RED CELL DISTRIBUTION WIDTH 15.5 % (11.5-14.5); WHITE BLOOD COUNT 8.6 10^3/ul (4.8-10.8)
[2016-10-08 06:32] LABS: POTASSIUM 4.5 mmol/L (3.5-5.1)
[2016-10-08 06:35] LABS: CREATININE 1.34 mg/dl (0.44-1.00); PHOSPHORUS 2.9 mg/dl (2.5-4.9)
[2016-10-08 06:36] LABS: CALCIUM 8.7 mg/dl (8.4-10.2); MAGNESIUM 2.3 mg/dl (1.7-2.5)
[2016-10-08] MEDS: CHOLECALCIFEROL 2,000 UNIT CAP PO SCH (08:49)
[2016-10-08] MEDS: LEVOTHYROXINE 112 MCG TAB PO SCH (08:49)
[2016-10-08] MEDS: CALCIUM CARBONATE 1.25 GM TAB PO SCH ×2 (08:49→21:05)
[2016-10-08] MEDS: MAGNESIUM CHLORIDE (SR) 64 MG TAB PO SCH ×3 (08:49→21:05)
[2016-10-08] MEDS: METOPROLOL (XL) 50 MG TAB PO SCH ×2 (08:49→21:05)
--- NOTE | 2016-10-08 08:49 | CONS ---
Date/Time of Note Date/Time of Note DATE: 10/08/16 TIME: 08:46 Assessment/Plan Assessment/Plan Chief Complaint/Hosp Course Impression/Plan: - foot pain- normal perfusion, msk in etiology. - pericardial effusion- chronic mild-moderate, stable no evidence of HD significance. no further testing recommended at this time. 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 may be etiology of dyspnea as well. - edema- unclear etiology, resolved with diuretics. does have elevated right sided pressures. bnp relatively nl for age, possibly venous insuf vs. chronic dvt related. - seth- likely from diuresis, improving with gentle hydration - dvt hx- on anticoag - h/o cad on ct scan- ok to stop asa, no active symptoms and on anticoag w anemia Problems: Consultation Date/Type/Reason Admit Date/Time Oct 07, 2016 at 08:32 Initial Consult Date 10/07/16 Type of Consultation: Cardiology Referring Provider: JOSE LEVIN MD 24 HR Interval Summary Free Text/Dictation seen this am. denies any cp/sob. however not up much yesterday. foot pain improved. denies palpitations, dizziness, lightheadedness. no bleeding Exam/Review of Systems Vital Signs Vitals Vital Signs Date Time Temp Pulse Resp B/P Pulse Ox O2 Delivery O2 Flow Rate FiO2 10/07/16 20:46 98.5 95 18 128/56 94 10/06/16 14:00 Room Air Intake and Output 10/07/16 10/07/16 10/08/16 15:00 23:00 07:00 Intake Total 780 ml 1240 ml 1320 ml Output Total 2 ml Balance 778 ml 1240 ml 1320 ml Exam Constitutional: alert, oriented, well developed Psych: nl mood/affect, no complaints Head: normocephalic Eyes: EOMI, nl conjunctiva ENMT: mucosa pink and moist, nl nasal mucosa & septum Neck: non-tender, supple, No jvd Respiratory: clear to auscultation, normal air movement Cardiovascular: nl pulses, regular rate and rhythm, systolic murmur Gastrointestinal: non-tender, soft Musculoskeletal: other (edema improved, no pitting. ) Extremities: normal pulses, No calf tenderness Neurological: TELEPHONE LINES REPAIRER II-XII intact, nl mental status, nl speech, nl strength Skin: nl turgor, No rash or lesions Results Result Diagram: 10/08/16 0520 10/08/16 0520 Results 24 hrs Laboratory Tests Test 10/08/16 05:20 Anion Gap 15 Basophils # 0.0 Basophils % 0.3 Blood Urea Nitrogen 40 #H Calcium Level 8.7 Carbon Dioxide Level 27 Chloride Level 106 Creatinine 1.34 H Eosinophils # 0.4 Eosinophils % 4.9 Folate 10.6 Glucose Level 129 Hematocrit 25.9 L Hemoglobin 8.0 L Lymphocytes # 0.8 Lymphocytes % 9.0 L Magnesium Level 2.3 Mean Corpuscular Hemoglobin 29.4 Mean Corpuscular Hemoglobin Concent 30.9 L Mean Corpuscular Volume 95.2 Mean Platelet Volume 11.4 H Monocytes # 0.7 Monocytes % 8.6 Neutrophils # 6.6 Neutrophils % 76.6 Nucleated Red Blood Cells # 0.0 Nucleated Red Blood Cells % 0.0 Phosphorus Level 2.9 Platelet Count 297 Potassium Level 4.5 Red Blood Count 2.72 L Red Cell Distribution Width 15.5 H Sodium Level 143 White Blood Count 8.6 Medications Medications Current Medications Atorvastatin Calcium (Lipitor) 10 mg HS PO Last administered on 10/07/16 20:56 ; Admin Dose 10 MG; Start 10/06/16 at 21:00 Calcium Carbonate (Oyster Shell Calcium) 1.25 gm BID PO Last administered on 20:55; Admin Dose 1.25 GM; Start 10/06/16 at 21:00 Magnesium Chloride (Mag 64) 64 mg TID PO Last administered on 10/07/16 20:56; Admin Dose 64 MG; Start 10/06/16 at 15:00 Metoprolol Succinate (Toprol Xl) 50 mg BID PO Last administered on 10/07/16 20 :56; Admin Dose 50 MG; Start 10/06/16 at 13:00 Pantoprazole (Protonix Tab) 40 mg DAILY@06 PO Last administered on 10/08/16 05 :51; Admin Dose 40 MG; Start 10/06/16 at 13:00 Cholecalciferol 2000 unit 2,000 unit DAILY PO Last administered on 10/07/16 08 :34; Admin Dose 2,000 UNIT; Start 10/06/16 at 13:00 Sodium Chloride (NS) 1,000 ml @ 40 mls/hr Q24H IV Last administered on 04:03; Admin Dose 60 MLS/HR; Start 10/06/16 at 13:14 Ondansetron HCl (Zofran Inj) 4 mg Q6H PRN IV NAUSEA AND/OR VOMITING; Start at 13:30 Acetaminophen (Tylenol Tab) 650 mg Q6H PRN PO PAIN LEVEL 1-3 OR FEVER Last administered on 10/07/16 13:10; Admin Dose 650 MG; Start 10/06/16 at 13:30 Acetaminophen/ Hydrocodone Bitart ([place] (5/325)) 1 tab Q6H PRN PO MODERATE PAIN LEVEL 4-6 Last administered on 10/08/16 05:52; Admin Dose 1 TAB; Start at 13:30 Acetaminophen/ Hydrocodone Bitart ([place] (5/325)) 2 tab Q6H PRN PO SEVERE PAIN LEVEL 7-10; Start 10/06/16 at 13:30 Docusate Sodium (Colace) 100 mg Q12H PRN PO CONSTIPATION; Start 10/06/16 at 13: 30 Magnesium Hydroxide (Milk Of Mag) 30 ml DAILY PRN PO CONSTIPATION; Start at 13:30 Zolpidem Tartrate 5 mg 5 mg QHS PRN PO SLEEP; Start 10/06/16 at 13:30 Ferric Sodium Gluconate Complex/ Sodium Chloride (Ferrlecit/NS) 110 ml @ 110 mls/hr Q24H IVPB Last administered on 10/07/16 09:51; Admin Dose 110 MLS/HR; Start 10/07/16 at 09:30; Stop 10/11/16 at 10:29 Epoetin Darvin (Epogen (Esrd)) 10,000 units TuThSa@17 SC Last administered on 18:55; Admin Dose 10,000 UNITS; Start 10/07/16 at 17:00 Mometasone Furoate (Asmanex) 1 puff BID INH Last administered on 10/07/16 20: 57; Admin Dose 1 PUFF; Start 10/07/16 at 11:30 Nystatin (Nystatin Powder) 1 applic DAILY TOP Last administered on 10/07/16 13 :10; Admin Dose 1 APPLIC; Start 10/07/16 at 12:30 Cyanocobalamin (Vitamin B12) 1,000 mcg DAILY PO ; Start 10/08/16 at 09:00; Status UNV Colchicine (Colchicine) 0.6 mg QID PO ; Start 10/08/16 at 09:00; Status UNV Apixaban (Eliquis) 5 mg BID PO ; Start 10/08/16 at 09:00; Status UNV Procedures Procedures ankle mri report reviewed in emr gi consult reviewed LUDWIN DEVLIN Oct 08, 2016 08:48
[2016-10-08] MEDS: SOD FERRIC GLUC COMPLX 125 MG in SOD CHLORIDE 0.9% 100 ML IVPB SCH (08:50)
[2016-10-08] MEDS: NYSTATIN 30 GM POWDER BTL TOP SCH (08:50)
[2016-10-08] MEDS: MOMETASONE 0.24 GM INHALER INH SCH ×2 (08:51→21:04)
[2016-10-08] MEDS: APIXABAN 5 MG TABLET PO SCH ×3 (09:00→21:05)
--- NOTE | 2016-10-08 09:50 | CONS ---
DATE OF ADMISSION: 10/07/2016 DATE OF CONSULTATION: 10/08/2016 HEMATOLOGY CONSULTATION REQUESTING PHYSICIAN: Dr. Kaz Chinchilla REASON FOR CONSULTATION: Anemia. Dear Dr. Chinchilla: Thank you very much for asking me to see this very interesting and pleasant patient in hematologic c onsultation. As you know, Ms. Lagos is an 86-year-old female who was admitted to [facility] after presenting to the emergency room on 10/06/2016. The patient had recently been found to have a lower extremity deep vein thrombosis involving the lef t popliteal vein. The patient apparently had been found to have some worsening lower extremity ashleigh a. A CT angiogram done as an outpatient did not demonstrate pulmonary embolism and CT of the abdome n and pelvis did not show any retroperitoneal mesenteric lymphadenopathy nor organomegaly or any pel ad masses. The patient has now been admitted because of increasing dyspnea on exertion. It was also noted that the patient had a significant decrease in her hemoglobin and hematocrit. The patient on admission to the hospital had a white count of 9600 with an absolute neutrophil count of 7100 and absolute lymphocyte count of 1200, hemoglobin was 8.7, hematocrit 27, MCV 93.8, MCH 30. 2, MCHC 32.2, RDW 15.4, platelet count 349,000, MPV 10.9. The patient's hemoglobin this morning was 8.0, hematocrit 25.9. Sedimentation rate was 93. As noted, the patient has been started on anticoagulation. It is not clear if this was started at t he time of the finding of the deep vein thrombosis. She is presently taking Apixaban 2.5 mg twice a day. She was not taking anticoagulation at the time of the detection of this deep vein thrombosis. Protime on admission was 15.6 seconds, INR 1.23, PTT is 27.9 seconds. The patient's creatinine on admission was 2.05, BUN 72. Total bilirubin 0, AST 18, ALT 14, alkaline phosphatase 105. The serum iron was 27, iron binding capacity 313, percent saturation 9, and sloan tin 36.9. B12 level was 241. Folic acid is 10.6. The patient denies any abdominal pain. She has no nausea or vomiting. She has not noticed any enrique na or hematochezia. The patient's past history does include the recent deep vein thrombosis. The patient also had a jerry p vein thrombosis of the left popliteal vein. In the past, in 2012, the patient did have a DVT in t he right peroneal vein. Other past history includes hypertension, cholecystectomy, carcinoma of the left breast 20 years ago . Mild acute renal failure possibly due to vancomycin. Hypothyroidism. History of pericardial eff usion which is unchanged. PAST SURGICAL HISTORY: Surgeries in the past have included a right hip replacement, bilateral catar act surgery, cholecystectomy, lumpectomy. MEDICATIONS: At the time of admission included: 1. Apixaban 5 mg twice a day. 2. Synthroid 0.112 mg daily. 3. Lasix 40 mg per day. 4. Micro K 20 mEq per day. 5. Diovan with hydrochlorothiazide 160/25 mg per day. 6. Metoprolol 50 mg per day. 7. Atorvastatin 10 mg per day. 8. Vitamin D 2000 units per day. 9. Aspirin 325 g today. ALLERGIES: THE PATIENT IS ALLERGIC TO: 1. DETROL. 2. FLUCONAZOLE. 3. POSSIBLY VANCOMYCIN. PHYSICAL EXAMINATION: GENERAL: At this time, reveals a well-developed elderly female who is mildly obese. VITAL SIGNS: Temperature 98.5, pulse 90 per minute and regular, respirations 18, blood pressure 128 /56, and pulse oximetry is 94% on room air. SKIN: Pale. No ecchymosis. No petechiae or rashes. HEENT: Normocephalic. No evidence of trauma. Pupils equal, round, react to light and accommodatio n. Sclerae are nonicteric. Conjunctivae are pale. Oral mucosa is pale. No mucosal lesions. NECK: Supple, no jugular venous distention or thyroid enlargement. CHEST: No rhonchi, wheezes, rales, or rubs. BREASTS: No masses, skin retraction, or nipple inversion. There is evidence of the previous left b reast surgery. NODES: No palpable lymphadenopathy in any lymph node-bearing area. ABDOMEN: Obese, but soft. There are no masses or ascites. EXTREMITIES: There are presently athrombic compression devices in place. There are no palpable cor ds or Homans sign. NEUROLOGIC: Normal. Peripheral blood smear has been reviewed. There is definitely a population of hypochromic macrocyti c red blood cells. There are no fragmented red blood cells, no spherocytes. White blood cells are normal in number. There are no immature granulocytes. No hypersegmented poly's seen. No nucleated red blood cells. The lymphocytes are normal in number, but there are some atypical lymphocytic typ e appearing cells which have large nuclei, minimal basophilic cytoplasm. The platelets are normal i n number and appearance. DISCUSSION: This patient has an anemia which seems to have developed over the past 2 or 3 weeks. I t should be noted that it is during this time that the patient was started on apixaban. She, lu dorantes, does not note any evidence of unusual bruising or bleeding. She has not had any GI complaints, a nd no melena or hematochezia. Iron studies at this time; however, due to suggest iron deficiency. Serum iron is 27, iron binding capacity 317, percent saturation 9%, and ferritin is 36.9. The patient has already been started on parenteral iron replacement. She is to receive a total of 625 mg of ferric sodium gluconate in a to saleem of 5 infusions. The patient also was started on erythropoietin 10,000 units on Thursday, , and Thursday. She did receive her first dose on 10/07/2016. Of interest, is the fact that the patient does have a very borderline vitamin B12 level of only 241. The patient does not have any symptoms suggesting a B12 deficiency and review of the peripheral sm ear does not show macrocytosis or hypersegmented polys, etc. A homocystine and methylmalonic acid level have been obtained. We will also obtain intrinsic factor blocking antibodies and parietal cell antibodies. As noted, there are some atypical-appearing lymphocytic type cells on review of the peripheral smear . We will obtain a protein electrophoresis, immunofixation, and quantitative immunoglobulins at thi s time. Ultimately it may be necessary to perform a flow cytometry of the peripheral blood if these atypical lymphocytes persist. Once again, thank you very much for the opportunity of participating in the medical care of this familia y interesting and pleasant patient. I will be happy to follow this patient with you and assist in h er hematologic evaluation and follow up as necessary. Dictated By: DOREEN LANE MD, SR/NTS Conf#: [id number] DID#: [id number]
[2016-10-08 10:27] LABS: IMMUNOGLOBULIN G 801 mg/dl (700-1600)
[2016-10-08 10:29] LABS: IMMUNOGLOBULIN A 258 mg/dl (70-400)
[2016-10-08 10:30] LABS: IMMUNOGLOBULIN M < 25 mg/dl (40-230)
--- NOTE | 2016-10-08 11:50 | CONS ---
Date/Time of Note Date/Time of Note DATE: 10/08/16 TIME: 11:46 Consult Date/Type/Reason Admit Date/Time Oct 07, 2016 at 08:32 Initial Consult Date 10/07/16 Type of Consultation: GI Ordering Provider: JOSE LEVIN MD Subjective No new complaints No gross bleeding Patient had stool, but not sent to lab by nursing Objective Vital Signs Date Time Temp Pulse Resp B/P Pulse Ox O2 Delivery O2 Flow Rate FiO2 10/07/16 20:46 98.5 95 18 128/56 94 10/06/16 14:00 Room Air Cheat: clear Cardiac: no m, r, g Abdomen: soft, non tender Intake and Output 10/07/16 10/07/16 10/08/16 15:00 23:00 07:00 Intake Total 780 ml 1240 ml 1320 ml Output Total 2 ml Balance 778 ml 1240 ml 1320 ml Results/Medications Result Diagram: 10/08/16 0520 10/08/16 0520 Results 24 hrs Laboratory Tests Test 10/08/16 05:20 10/08/16 09:25 Anion Gap 15 Basophils # 0.0 Basophils % 0.3 Blood Urea Nitrogen 40 #H Calcium Level 8.7 Carbon Dioxide Level 27 Chloride Level 106 Creatinine 1.34 H Eosinophils # 0.4 Eosinophils % 4.9 Folate 10.6 Glucose Level 129 Hematocrit 25.9 L Hemoglobin 8.0 L Immunoglobulin A 258 Immunoglobulin G 801 Immunoglobulin M < 25 L Lymphocytes # 0.8 Lymphocytes % 9.0 L Magnesium Level 2.3 Mean Corpuscular Hemoglobin 29.4 Mean Corpuscular Hemoglobin Concent 30.9 L Mean Corpuscular Volume 95.2 Mean Platelet Volume 11.4 H Monocytes # 0.7 Monocytes % 8.6 Neutrophils # 6.6 Neutrophils % 76.6 Nucleated Red Blood Cells # 0.0 Nucleated Red Blood Cells % 0.0 Phosphorus Level 2.9 Platelet Count 297 Potassium Level 4.5 Red Blood Count 2.72 L Red Cell Distribution Width 15.5 H Sodium Level 143 White Blood Count 8.6 Uric Acid 10.4 H Medications Current Medications Atorvastatin Calcium (Lipitor) 10 mg HS PO Last administered on 10/07/16 20:56 ; Admin Dose 10 MG; Start 10/06/16 at 21:00 Calcium Carbonate (Oyster Shell Calcium) 1.25 gm BID PO Last administered on 08:49; Admin Dose 1.25 GM; Start 10/06/16 at 21:00 Magnesium Chloride (Mag 64) 64 mg TID PO Last administered on 10/08/16 08:49; Admin Dose 64 MG; Start 10/06/16 at 15:00 Metoprolol Succinate (Toprol Xl) 50 mg BID PO Last administered on 10/08/16 08 :49; Admin Dose 50 MG; Start 10/06/16 at 13:00 Pantoprazole (Protonix Tab) 40 mg DAILY@06 PO Last administered on 10/08/16 05 :51; Admin Dose 40 MG; Start 10/06/16 at 13:00 Cholecalciferol 2000 unit 2,000 unit DAILY PO Last administered on 10/08/16 08 :49; Admin Dose 2,000 UNIT; Start 10/06/16 at 13:00 Sodium Chloride (NS) 1,000 ml @ 40 mls/hr Q24H IV Last administered on 04:03; Admin Dose 60 MLS/HR; Start 10/06/16 at 13:14 Ondansetron HCl (Zofran Inj) 4 mg Q6H PRN IV NAUSEA AND/OR VOMITING; Start at 13:30 Acetaminophen (Tylenol Tab) 650 mg Q6H PRN PO PAIN LEVEL 1-3 OR FEVER Last administered on 10/07/16 13:10; Admin Dose 650 MG; Start 10/06/16 at 13:30 Acetaminophen/ Hydrocodone Bitart ([place] (5/325)) 1 tab Q6H PRN PO MODERATE PAIN LEVEL 4-6 Last administered on 10/08/16 05:52; Admin Dose 1 TAB; Start at 13:30 Acetaminophen/ Hydrocodone Bitart ([place] (5/325)) 2 tab Q6H PRN PO SEVERE PAIN LEVEL 7-10; Start 10/06/16 at 13:30 Docusate Sodium (Colace) 100 mg Q12H PRN PO CONSTIPATION; Start 10/06/16 at 13: 30 Magnesium Hydroxide (Milk Of Mag) 30 ml DAILY PRN PO CONSTIPATION; Start at 13:30 Zolpidem Tartrate 5 mg 5 mg QHS PRN PO SLEEP; Start 3/13/17 at 13:30 Ferric Sodium Gluconate Complex/ Sodium Chloride (Ferrlecit/NS) 110 ml @ 110 mls/hr Q24H IVPB Last administered on 10/08/16 08:50; Admin Dose 110 MLS/HR; Start 10/07/16 at 09:30; Stop 10/11/16 at 10:29 Epoetin Darvin (Epogen (Esrd)) 10,000 units TuThSa@17 SC Last administered on 18:55; Admin Dose 10,000 UNITS; Start 10/07/16 at 17:00 Mometasone Furoate (Asmanex) 1 puff BID INH Last administered on 10/08/16 08: 51; Admin Dose 1 PUFF; Start 10/07/16 at 11:30 Nystatin (Nystatin Powder) 1 applic DAILY TOP Last administered on 10/08/16 08 :50; Admin Dose 1 APPLIC; Start 10/07/16 at 12:30 Cyanocobalamin (Vitamin B12) 1,000 mcg DAILY PO ; Start 10/08/16 at 09:00 Colchicine (Colchicine) 0.6 mg QID PO ; Start 10/08/16 at 10:00 Apixaban (Eliquis) 5 mg BID PO ; Start 10/08/16 at 09:00 Assessment/Plan Chief Complaint/Hosp Course Impression: Iron Deficiency Anemia - stable Problems: Additional Assessment/Plan Plan: 1. Await stool OB - discussed with nursing 2. Discussed with Dr. Levin 3. Will defer EGD/Colonoscopy for now pending fu labs and stool ob, but will need full evaluation at one point off anticoagulation DACIA LACEY MD Oct 08, 2016 11:50
[2016-10-08] MEDS: COLCHICINE 0.6 MG TAB PO SCH ×4 (12:08→21:05)
[2016-10-08] MEDS: CYANOCOBALAMIN 500 MCG TAB PO SCH (12:08)
[2016-10-08] MEDS: METHYLPREDNISOLONE 40 MG INJ IV SCH ×2 (16:50→21:04)
--- NOTE | 2016-10-08 19:15 | RADRPT ---
Vent Rate: 99 bpm RR Interval: 0 msec ND Interval: 162 msec QRS Duration: 98 msec QT Interval: 358 msec QTC Interval: 459 msec P-R-T Sheldon: 73 - 39 - 50 degrees Normal sinus rhythm Low voltage QRS RSR' pattern in V1 suggests right ventricular conduction delay Borderline ECG Electronically Signed By: Alli Ortiz [id number]
[2016-10-08 19:52] VITALS: BP 103/51; RESP 18
[2016-10-08] MEDS: ATORVASTATIN 10 MG TAB PO SCH (21:05)
[2016-10-09 05:36] LABS: PROTEIN, TOTAL 6.1 g/dL (6.1-8.1)
[2016-10-09] MEDS: PANTOPRAZOLE (EC) 40 MG TAB PO SCH (05:58)
[2016-10-09 06:14] LABS: ADD SCAN DIFF NO
[2016-10-09 06:33] LABS: POTASSIUM 4.7 mmol/L (3.5-5.1)
[2016-10-09 06:35] LABS: CREATININE 1.26 mg/dl (0.44-1.00)
[2016-10-09 06:36] LABS: PHOSPHORUS 2.6 mg/dl (2.5-4.9)
[2016-10-09 06:37] LABS: CALCIUM 8.1 mg/dl (8.4-10.2)
[2016-10-09 06:42] LABS: ABNORMAL IP MESSAGE 1; BASOPHILS % 0.2 % (0.0-2.0); EOSINOPHILS % 0.1 % (0.0-7.0); HEMOGLOBIN 7.8 g/dl (12.0-16.0); LYMPHOCYTES # 0.5 10^3/ul (0.8-2.9); MEAN CORPUSCULAR HEMOGLOBIN 29.8 pg (29.0-33.0); MEAN CORPUSCULAR HGB CONC 31.2 g/dl (32.0-37.0); MEAN CORPUSCULAR VOLUME 95.4 fl (82.0-101.0); MEAN PLATELET VOLUME 11.3 fl (7.4-10.4); MONOCYTE # 0.1 10^3/ul (0.3-0.9); MONOCYTES % 1.4 % (0.0-11.0); NEUTROPHIL # 9.1 10^3/ul (1.6-7.5); NEUTROPHILS % 92.3 % (39.0-77.0); PLATELET COUNT 280 10^3/UL (140-415); RED BLOOD COUNT 2.62 10^6/ul (4.20-5.40); RED CELL DISTRIBUTION WIDTH 14.8 % (11.5-14.5); WHITE BLOOD COUNT 9.9 10^3/ul (4.8-10.8)
[2016-10-09 07:14] VITALS: BP 113/64; RESP 16
--- NOTE | 2016-10-09 07:54 | CONS ---
Date/Time of Note Date/Time of Note DATE: 10/09/16 TIME: 07:50 Consult Date/Type/Reason Admit Date/Time Oct 07, 2016 at 08:32 Initial Consult Date 10/07/16 Type of Consultation: GI Ordering Provider: JOSE LEVIN MD Objective Vital Signs Date Time Temp Pulse Resp B/P Pulse Ox O2 Delivery O2 Flow Rate FiO2 10/09/16 07:14 98.7 96 16 113/64 93 10/06/16 14:00 Room Air Abdomen: soft, non tender Intake and Output 10/08/16 10/08/16 10/09/16 15:00 23:00 07:00 Intake Total 1890 ml 420 ml Balance 1890 ml 420 ml Results/Medications Result Diagram: 10/09/1651910/09/16 0520 Results 24 hrs Laboratory Tests Test 10/08/16 09:25 10/09/16 05:20 Albumin (PEP) Pending Megpa-3-[id number] Pending Qklzf-4-Bdlbgfvet Pending Beta Globulins Pending Gamma Globulins Pending Haptoglobin Pending Intrinsic Factor Blocking Antibody Pending Protein Electrophoresis Interpret Pending Serum Immunofixation Pending Total Protein (PEP) 6.1 Uric Acid 10.4 H Anion Gap 16 Basophils # 0.0 Basophils % 0.2 Blood Urea Nitrogen 33 H C-Reactive Protein 14.3 H Calcium Level 8.1 L Carbon Dioxide Level 22 Chloride Level 108 Creatinine 1.26 H Eosinophils # 0.0 Eosinophils % 0.1 Glucose Level 181 Hematocrit 25.0 L Hemoglobin 7.8 L Lymphocytes # 0.5 L Lymphocytes % 5.0 L Magnesium Level 2.0 Mean Corpuscular Hemoglobin 29.8 Mean Corpuscular Hemoglobin Concent 31.2 L Mean Corpuscular Volume 95.4 Mean Platelet Volume 11.3 H Monocytes # 0.1 L Monocytes % 1.4 Neutrophils # 9.1 H Neutrophils % 92.3 H Nucleated Red Blood Cells # 0.0 Nucleated Red Blood Cells % 0.0 Phosphorus Level 2.6 Platelet Count 280 Potassium Level 4.7 Red Blood Count 2.62 L Red Cell Distribution Width 14.8 H Sodium Level 141 White Blood Count 9.9 Medications Current Medications Atorvastatin Calcium (Lipitor) 10 mg HS PO Last administered on 10/08/16t 21:05 ; Admin Dose 10 MG; Start 10/06/16 at 21:00 Calcium Carbonate (Oyster Shell Calcium) 1.25 gm BID PO Last administered on 21:05; Admin Dose 1.25 GM; Start 10/06/16 at 21:00 Magnesium Chloride (Mag 64) 64 mg TID PO Last administered on 10/08/16 21:05; Admin Dose 64 MG; Start 10/06/16 at 15:00 Metoprolol Succinate (Toprol Xl) 50 mg BID PO Last administered on 10/08/16 21 :05; Admin Dose 50 MG; Start 10/06/16 at 13:00 Pantoprazole (Protonix Tab) 40 mg DAILY@06 PO Last administered on 10/09/16 05 :58; Admin Dose 40 MG; Start 10/06/16 at 13:00 Cholecalciferol 2000 unit 2,000 unit DAILY PO Last administered on 10/08/16 08 :49; Admin Dose 2,000 UNIT; Start 10/06/16 at 13:00 Sodium Chloride (NS) 1,000 ml @ 40 mls/hr Q24H IV Last administered on 22:50; Admin Dose 40 MLS/HR; Start 10/06/16 at 13:14 Ondansetron HCl (Zofran Inj) 4 mg Q6H PRN IV NAUSEA AND/OR VOMITING; Start at 13:30 Acetaminophen (Tylenol Tab) 650 mg Q6H PRN PO PAIN LEVEL 1-3 OR FEVER Last administered on 10/07/16 13:10; Admin Dose 650 MG; Start 10/06/16 at 13:30 Acetaminophen/ Hydrocodone Bitart ([place] (5/325)) 1 tab Q6H PRN PO MODERATE PAIN LEVEL 4-6 Last administered on 10/08/16 05:52; Admin Dose 1 TAB; Start at 13:30 Acetaminophen/ Hydrocodone Bitart ([place] (5/325)) 2 tab Q6H PRN PO SEVERE PAIN LEVEL 7-10 Last administered on 10/08/16 16:52; Admin Dose 2 TAB; Start at 13:30 Docusate Sodium (Colace) 100 mg Q12H PRN PO CONSTIPATION; Start 10/06/16 at 13: 30 Magnesium Hydroxide (Milk Of Mag) 30 ml DAILY PRN PO CONSTIPATION; Start at 13:30 Zolpidem Tartrate 5 mg 5 mg QHS PRN PO SLEEP; Start 10/06/16 at 13:30 Ferric Sodium Gluconate Complex/ Sodium Chloride (Ferrlecit/NS) 110 ml @ 110 mls/hr Q24H IVPB Last administered on 10/08/16 08:50; Admin Dose 110 MLS/HR; Start 10/07/16 at 09:30; Stop 10/11/16 at 10:29 Epoetin Darvin (Epogen (Esrd)) 10,000 units TuThSa@17 SC Last administered on 18:55; Admin Dose 10,000 UNITS; Start 10/07/16 at 17:00 Mometasone Furoate (Asmanex) 1 puff BID INH Last administered on 10/08/16 21: 04; Admin Dose 1 PUFF; Start 10/07/16 at 11:30 Nystatin (Nystatin Powder) 1 applic DAILY TOP Last administered on 10/08/16 08 :50; Admin Dose 1 APPLIC; Start 10/07/16 at 12:30 Cyanocobalamin (Vitamin B12) 1,000 mcg DAILY PO Last administered on 10/08/16 12:08; Admin Dose 1,000 MCG; Start 10/08/16 at 09:00 Colchicine (Colchicine) 0.6 mg QID PO Last administered on 10/08/16 21:05; Admin Dose 0.6 MG; Start 10/08/16 at 10:00 Apixaban (Eliquis) 5 mg BID PO Last administered on 10/08/16 21:05; Admin Dose 5 MG; Start 10/08/16 at 09:00 Assessment/Plan Chief Complaint/Hosp Course Impression: Iron Deficiency Anemia - stable Plan: 1. Discussed with Dr Levin 2. Awaiting stool OB 3. EGD/Colonoscopy electively in future Problems: DACIA LACEY MD Oct 09, 2016 07:54
[2016-10-09] MEDS: METOPROLOL (XL) 50 MG TAB PO SCH ×2 (09:00→20:13)
[2016-10-09] MEDS: COLCHICINE 0.6 MG TAB PO SCH ×3 (09:05→20:13)
[2016-10-09] MEDS: LEVOTHYROXINE 112 MCG TAB PO SCH (09:05)
[2016-10-09] MEDS: CHOLECALCIFEROL 2,000 UNIT CAP PO SCH (09:05)
[2016-10-09] MEDS: MAGNESIUM CHLORIDE (SR) 64 MG TAB PO SCH ×3 (09:06→20:12)
[2016-10-09] MEDS: CYANOCOBALAMIN 500 MCG TAB PO SCH (09:06)
[2016-10-09] MEDS: MOMETASONE 0.24 GM INHALER INH SCH ×2 (09:06→20:18)
[2016-10-09] MEDS: APIXABAN 5 MG TABLET PO SCH ×2 (09:06→20:13)
[2016-10-09] MEDS: CALCIUM CARBONATE 1.25 GM TAB PO SCH ×2 (09:06→20:13)
[2016-10-09] MEDS: NYSTATIN 30 GM POWDER BTL TOP SCH (09:07)
[2016-10-09] MEDS: SOD FERRIC GLUC COMPLX 125 MG in SOD CHLORIDE 0.9% 100 ML IVPB SCH (10:51)
--- NOTE | 2016-10-09 12:01 | PN ---
Date/Time of Note Date/Time of Note DATE: 10/09/16 TIME: 11:57 Assessment/Plan VTE Prophylaxis VTE Prophylaxis Intervention: other Lines/Catheters IV Catheter Type (from Nrs): Peripheral IV Urinary Cath still in place: No Assessment/Plan Assessment/Plan 1. Gout min improvement, I asked Rheum to see, will cont steroids and colchicine for now. 2. Anemia will transfuse, rev with heme, concern for lymphoprolif disorder given marked inc c-reactive protein and sed rate (not explained by gout) and anemia, bone marrow pending cytolologic eval, stool ob still pending. 3. DVT, continuing eliquis. 4. HBP, controlled. 5. Acute renal failure cont to improve with hydration and having dc lasix Subjective 24 Hr Interval Summary Respiratory: shortness of breath (mild and sl cough) Cardiovascular: No chest pain Gastrointestinal: no complaints Genitourinary: no complaints Musculoskeletal: other (dorsum of feet still very painful, sl better then yesterday and still cant walk) Exam/Review of Systems Vital Signs Vitals Vital Signs Date Time Temp Pulse Resp B/P Pulse Ox O2 Delivery O2 Flow Rate FiO2 10/09/16 07:14 98.7 96 16 113/64 93 10/06/16 14:00 Room Air Intake and Output 10/08/16 10/08/16 10/09/16 15:00 23:00 07:00 Intake Total 1890 ml 420 ml Balance 1890 ml 420 ml Exam Neck: No jvd Respiratory: clear to auscultation Cardiovascular: regular rate and rhythm Gastrointestinal: soft Extremities: edema (brawny edema, dorsum of feet right and left warm and red) Results Result Diagram: 10/09/16 0520 10/09/16 0520 Results 24 hrs Laboratory Tests Test 10/09/16 05:20 Anion Gap 16 Basophils # 0.0 Basophils % 0.2 Blood Urea Nitrogen 33 H C-Reactive Protein 14.3 H Calcium Level 8.1 L Carbon Dioxide Level 22 Chloride Level 108 Creatinine 1.26 H Eosinophils # 0.0 Eosinophils % 0.1 Glucose Level 181 Hematocrit 25.0 L Hemoglobin 7.8 L Lymphocytes # 0.5 L Lymphocytes % 5.0 L Magnesium Level 2.0 Mean Corpuscular Hemoglobin 29.8 Mean Corpuscular Hemoglobin Concent 31.2 L Mean Corpuscular Volume 95.4 Mean Platelet Volume 11.3 H Monocytes # 0.1 L Monocytes % 1.4 Neutrophils # 9.1 H Neutrophils % 92.3 H Nucleated Red Blood Cells # 0.0 Nucleated Red Blood Cells % 0.0 Phosphorus Level 2.6 Platelet Count 280 Potassium Level 4.7 Red Blood Count 2.62 L Red Cell Distribution Width 14.8 H Sodium Level 141 White Blood Count 9.9 Medications Medications Current Medications Atorvastatin Calcium (Lipitor) 10 mg HS PO Last administered on 10/08/16 21:05 ; Admin Dose 10 MG; Start 10/06/16 at 21:00 Calcium Carbonate (Oyster Shell Calcium) 1.25 gm BID PO Last administered on 09:06; Admin Dose 1.25 GM; Start 10/06/16 at 21:00 Magnesium Chloride (Mag 64) 64 mg TID PO Last administered on 10/09/16 09:06; Admin Dose 64 MG; Start 10/06/16 at 15:00 Metoprolol Succinate (Toprol Xl) 50 mg BID PO Last administered on 10/08/16 21 :05; Admin Dose 50 MG; Start 10/06/16 at 13:00 Pantoprazole (Protonix Tab) 40 mg DAILY@06 PO Last administered on 10/09/16 05 :58; Admin Dose 40 MG; Start 10/06/16 at 13:00 Cholecalciferol 2000 unit 2,000 unit DAILY PO Last administered on 10/09/16 09 :05; Admin Dose 2,000 UNIT; Start 10/06/16 at 13:00 Sodium Chloride (NS) 1,000 ml @ 40 mls/hr Q24H IV Last administered on 22:50; Admin Dose 40 MLS/HR; Start 10/06/16 at 13:14 Ondansetron HCl (Zofran Inj) 4 mg Q6H PRN IV NAUSEA AND/OR VOMITING; Start at 13:30 Acetaminophen (Tylenol Tab) 650 mg Q6H PRN PO PAIN LEVEL 1-3 OR FEVER Last administered on 10/07/16 13:10; Admin Dose 650 MG; Start 10/06/16 at 13:30 Acetaminophen/ Hydrocodone Bitart ([place] (5/325)) 1 tab Q6H PRN PO MODERATE PAIN LEVEL 4-6 Last administered on 10/08/16 05:52; Admin Dose 1 TAB; Start at 13:30 Acetaminophen/ Hydrocodone Bitart ([place] (5/325)) 2 tab Q6H PRN PO SEVERE PAIN LEVEL 7-10 Last administered on 10/08/16 16:52; Admin Dose 2 TAB; Start at 13:30 Docusate Sodium (Colace) 100 mg Q12H PRN PO CONSTIPATION; Start 10/06/16 at 13: 30 Magnesium Hydroxide (Milk Of Mag) 30 ml DAILY PRN PO CONSTIPATION; Start at 13:30 Zolpidem Tartrate 5 mg 5 mg QHS PRN PO SLEEP; Start 10/06/16 at 13:30 Ferric Sodium Gluconate Complex/ Sodium Chloride (Ferrlecit/NS) 110 ml @ 110 mls/hr Q24H IVPB Last administered on 10/09/16 10:51; Admin Dose 110 MLS/HR; Start 10/07/16 at 09:30; Stop 10/11/16 at 10:29 Epoetin Darvin (Epogen (Esrd)) 10,000 units TuThSa@17 SC Last administered on 18:55; Admin Dose 10,000 UNITS; Start 10/07/16 at 17:00 Mometasone Furoate (Asmanex) 1 puff BID INH Last administered on 10/09/16 09: 06; Admin Dose 1 PUFF; Start 10/07/16 at 11:30 Nystatin (Nystatin Powder) 1 applic DAILY TOP Last administered on 10/09/16 09 :07; Admin Dose 1 APPLIC; Start 10/07/16 at 12:30 Cyanocobalamin (Vitamin B12) 1,000 mcg DAILY PO Last administered on 10/09/16 09:06; Admin Dose 1,000 MCG; Start 10/08/16 at 09:00 Colchicine (Colchicine) 0.6 mg QID PO Last administered on 10/09/16 09:05; Admin Dose 0.6 MG; Start 10/08/16 at 10:00 Apixaban (Eliquis) 5 mg BID PO Last administered on 10/09/16 09:06; Admin Dose 5 MG; Start 10/08/16 at 09:00 JOSE LEVIN MD Oct 09, 2016 12:01
--- NOTE | 2016-10-09 12:06 | QN ---
Documentation Job number: [id number] Comment Orthopedic Surgery Consultation Note DANYELL ASHER MD Oct 09, 2016 12:06
[2016-10-09] MEDS ORDERED: LACTULOSE 30ML CUP PO ONE (12:30)
[2016-10-09 12:34] LABS: HOMOCYSTEINE - CARDIOVASCULAR 26.3 umol/L (<10.4)
--- NOTE | 2016-10-09 12:53 | CONS ---
DATE OF ADMISSION: 10/07/2016 DATE OF CONSULTATION: 10/08/2016 CHIEF COMPLAINT: Left ankle pain. REQUESTING PHYSICIAN: Kaz Levin MD HISTORY OF PRESENT ILLNESS: Ms. Lagos is a delightful 86-year-old female who was admitted to [facility] on 10/06/2016 and found to have a left lower extremity DVT. The patient is now admitted for increasing dyspnea on exertion and also noted to have a significant decrease in her hemoglobin and hematocrit. On evaluation, the patient was noted to have increasing left ankle pain that she was commenting on. The patient notes that she has had ongoing left ankle pain for quite a while that has been worsening recently, and she noticed pain with walking of her left ankle. She denies using assistive devices at home prior to this admission. PAST MEDICAL HISTORY: Left DVT popliteal vein with history of right peroneal vein and DVT in 2012, hypertension, cholecystectomy, left breast cancer, mild acute renal failure possibly due to vancomycin; hypothyroidism, and pericardial effusion. PAST SURGICAL HISTORY: Right hip replacement, bilateral cataract surgery, cholecystectomy, lumpectomy. MEDICATIONS: Please see intake form. ALLERGIES: DETROL, FLUCONAZOLE, AND POSSIBLY VANCOMYCIN. 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 FAMILY HISTORY: Noncontributory. REVIEW OF SYSTEMS: Negative except for noted above in the musculoskeletal section. PHYSICAL EXAMINATION: GENERAL: The patient is well-developed, well-nourished, in no acute distress. VITAL SIGNS: Temperature 98, pulse 98, respirations 18 and blood pressure 101/ 61 on most recent vital signs intake sheet. LEFT LOWER EXTREMITY: The patient has pain and swelling over her left calf with pain on palpation. She has pain along her posterior tibialis tendon. She has ankle dorsiflexion approximately 10 degrees and plantarflexion approximately 15 degrees with diminished strength at this time due to pain. She has a 2+ dorsalis pedis and posterior tibialis pulse with sensation intact to light touch at the medial, lateral, dorsal, plantar and first dorsal webspace distribution. She has pain at the posterior tibialis insertion along the navicular as well. No pain is along the lateral aspect of the ankle at this time or along the Achilles. X-RAYS: Three views of the foot were reviewed from 10/06/2016, which revealed no acute fracture with early osteoarthritis in the midfoot and hammertoe deformities noted. MRI was reviewed from 10/06/2016 of her left ankle, which revealed pes planar deformity with what appears to be early OA of the tibiotalar joint with talar head uncovering and marked attenuation of the posterior tibialis tendon with a high grade partial thickness tear at the most distal part of it. ASSESSMENT AND PLAN: 1. Left ankle, probably at least grade IIb posterior tendon dysfunction, unable to assess fully, given her being in bed at this time. 2. Left peroneal vein deep vein thrombosis. RECOMMENDATION AND PLAN: 1. Continue with DVT therapy. 2. Continue with physical therapy for the left lower extremity. The patient can remain partial weightbearing. I recommend the patient go into a tall boot once the patient is able to ambulate. The patient can follow up with me in the outpatient setting. Thank you very much for including me in the care of this minh patient, and I would be happy to be involved as needed. Dictated By: DANYELL ASHER MD EIF/NTS Conf#: [id number] DID#: [id number] CC: KAZ LEVIN MD;*EndCC* MTDD
--- NOTE | 2016-10-09 14:26 | CONS ---
DATE OF ADMISSION: 10/07/2016 DATE OF CONSULTATION: TYPE OF CONSULTATION: Rheumatology HISTORY OF PRESENT ILLNESS: The patient is an 86-year-old woman who was admitted with lower extremity peripheral edema and anemia of recent onset. The patient was noted to have edema over the last month in the lower extremities and started 2 to 3 weeks ago on Lasix diuresis. About 5 days ago she developed some pain and swelling at the left big toe, and over the last several days some at the right big toe on the first MTP joint. Her uric acid yesterday was noted to be about 10. She has no prior history of gout or other systemic inflammatory arthropathy. There has been no recent trauma to the toes. The patient was started yesterday on Solu-Medrol 20 mg every 8 hours and today the swelling is somewhat improved. She still has some pain and has not done any weightbearing yet. No increased pain and no new other joint pains. The patient also recently was noted to have a DVT and was started on Eliquis about 3 weeks ago. RHEUMATOLOGIC REVIEW OF SYSTEMS: Positive for occasional myalgias in the upper back. She responded to local trigger point injection about a year ago at the right upper back. She has a history of osteoarthritis and is status post right hip replacement in 2004. Denies history of rashes. Some fatigue recently. Denies fevers, chills or sweats. Denies chest pain or increased shortness of breath. Denies palpitations. Denies abdominal pain and denies melena or bright red blood per rectum. Denies headaches. PAST MEDICAL HISTORY: Positive for history of sciatica, status post right hip replacement in 2004, history of hypertension, hyperlipidemia, mild renal insufficiency. She is status post left breast cancer in 1997, treated with radiation therapy. Status post cataract surgery. Status post left inguinal hernia repair 2011, hypothyroidism, a small pericardial effusion without recent change, noted initially in 2011. MEDICATIONS PRIOR TO ADMISSION: Include: 1. Eliquis for recent DVT. 2. Synthroid. 3. Lasix. 4. Potassium 5. Diovan 6. Metoprolol. 7. Atorvastatin. 8. Slow-Mag. 9. Vitamin D. 10. One aspirin daily. ALLERGIES: 1. DIFLUCAN. 2. DETROL. 3. POSSIBLE REACTION TO VANCOMYCIN. SOCIAL HISTORY: Does not smoke. No history of alcohol abuse. FAMILY HISTORY: Noncontributory. PHYSICAL EXAMINATION: VITAL SIGNS: Afebrile, blood pressure 113/64, pulse 96, respirations 16. GENERAL: Well-developed, well-nourished woman, alert, oriented x3, no acute distress at present. SKIN: Without acute rashes. HEENT: Without acute lesions. NECK: Without lymphadenopathy or thyromegaly. CHEST: Clear to auscultation. HEART: Regular rate and rhythm without gallops or murmurs noted. ABDOMEN: Soft without tenderness or masses. MUSCULOSKELETAL EXAMINATION: Left big toe around the first MTP with mild erythema, mild swelling, tenderness, similar but less marked signs on the right first MTP joint. Other joints without synovitis. No definite tenderness at ant calc. area at present. LABORATORY STUDIES NOTED: Including recent sedimentation rate of 93. C- reactive protein of 14.3 mg/dL. Uric acid 10.4, creatinine 1.26, BUN 33 today, hemoglobin 7.8, hematocrit 25, white count 9.9 this morning, 8.6 yesterday. Vitamin B12 241 on 10/07/2016. Creatinine was 1.7 with BUN of 58 on 10/07/2016. IMAGING: X-ray of the left foot shows some hammertoe deformities. MRI of the left ankle showed basically degenerative changes plus spinous deformity with evidence of plantar fasciitis. ASSESSMENT: 1. Acute gout at bilateral feet at the first MTP with hyperuricemia. This likely has been likely triggered by the fluid shifts due to diuresis. The symptoms and signs appear typical and no evidence of a different diagnosis for the acute arthritis in the feet. 2. Osteoarthritis, longstanding in multiple joints including at the feet. 3. Peripheral edema, which has improved with diuresis. 4. Anemia of unclear etiology at present. 5. Elevated sedimentation rate and C-reactive protein. This could be consistent with acute gout, although other etiologies need to be considered. There is no evidence of temporal arteritis or polymyalgia rheumatica at this point. RECOMMENDATIONS: 1. I agree with continuation of Solu-Medrol and would continue this dose for 1 or 2 more days until symptoms markedly improved and then taper steroids rapidly. 2. Will decrease the colchicine to b.i.d. Thank you for having me see the patient rheumatologically. Will follow. Dictated By: ONEL BORGES/FARNCIE Conf#: [id number] DID#: [id number] MTDD
--- NOTE | 2016-10-09 14:29 | CONS ---
Date/Time of Note Date/Time of Note DATE: 10/09/16 TIME: 14:25 Assessment/Plan Assessment/Plan Chief Complaint/Hosp Course Impression/Plan: - foot pain- normal perfusion, msk in etiology, ortho managing - pericardial effusion- chronic mild-moderate, stable no evidence of HD significance. no further testing recommended at this time. 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 may be etiology of dyspnea as well. - edema- unclear etiology, resolved with diuretics. does have elevated right sided pressures. bnp relatively nl for age, possibly venous insuf vs. chronic dvt related. - seth- likely from diuresis, resolved w hydration - dvt hx- on anticoag - h/o cad on ct scan- ok to stop asa, no active symptoms and on anticoag w anemia Recommendations: - keep net even, diuretics as needed - no further w/u of chronic pericardial effusion required at this time - anemia w/u pending - on anticoag for dvt, ok to be off asa - cont statin - patient can f/u with outpatient assistant director. please contact me if further questions arise. thank you for this consult. Problems: Consultation Date/Type/Reason Admit Date/Time Oct 07, 2016 at 08:32 Initial Consult Date 10/07/16 Type of Consultation: Cardiology Referring Provider: JOSE LEVIN MD 24 HR Interval Summary Free Text/Dictation no acute events. reports foot pain improved, denies sob. plan for endoscopy for evaluation for iron def anemia Constitutional: no complaints Detailed Summary Eyes: no complaints ENT: no complaints Respiratory: no complaints Cardiovascular: no complaints Exam/Review of Systems Vital Signs Vitals Vital Signs Date Time Temp Pulse Resp B/P Pulse Ox O2 Delivery O2 Flow Rate FiO2 10/09/16 07:14 98.7 96 16 113/64 93 10/06/16 14:00 Room Air Intake and Output 10/08/16 10/08/16 10/09/16 15:00 23:00 07:00 Intake Total 1890 ml 420 ml Balance 1890 ml 420 ml Exam Constitutional: alert, oriented, well developed Psych: nl mood/affect, no complaints Head: normocephalic Eyes: EOMI, nl conjunctiva ENMT: mucosa pink and moist, nl nasal mucosa & septum Neck: non-tender, supple, No jvd Respiratory: clear to auscultation, normal air movement Cardiovascular: nl pulses, regular rate and rhythm, systolic murmur Gastrointestinal: non-tender, soft Musculoskeletal: other (edema improved, no pitting. ) Extremities: normal pulses, No calf tenderness Neurological: FISHER SWORDFISH II-XII intact, nl mental status, nl speech, nl strength Skin: nl turgor, No rash or lesions Results Result Diagram: 10/09/16 0520 10/09/16 0520 Results 24 hrs Laboratory Tests Test 10/09/16 05:20 Anion Gap 16 Basophils # 0.0 Basophils % 0.2 Blood Urea Nitrogen 33 H C-Reactive Protein 14.3 H Calcium Level 8.1 L Carbon Dioxide Level 22 Chloride Level 108 Creatinine 1.26 H Eosinophils # 0.0 Eosinophils % 0.1 Glucose Level 181 Hematocrit 25.0 L Hemoglobin 7.8 L Lymphocytes # 0.5 L Lymphocytes % 5.0 L Magnesium Level 2.0 Mean Corpuscular Hemoglobin 29.8 Mean Corpuscular Hemoglobin Concent 31.2 L Mean Corpuscular Volume 95.4 Mean Platelet Volume 11.3 H Monocytes # 0.1 L Monocytes % 1.4 Neutrophils # 9.1 H Neutrophils % 92.3 H Nucleated Red Blood Cells # 0.0 Nucleated Red Blood Cells % 0.0 Phosphorus Level 2.6 Platelet Count 280 Potassium Level 4.7 Red Blood Count 2.62 L Red Cell Distribution Width 14.8 H Sodium Level 141 White Blood Count 9.9 Medications Medications Current Medications Atorvastatin Calcium (Lipitor) 10 mg HS PO Last administered on 10/08/16 21:05 ; Admin Dose 10 MG; Start 10/06/16 at 21:00 Calcium Carbonate (Oyster Shell Calcium) 1.25 gm BID PO Last administered on 09:06; Admin Dose 1.25 GM; Start 10/06/16 at 21:00 Magnesium Chloride (Mag 64) 64 mg TID PO Last administered on 10/09/16 12:52; Admin Dose 64 MG; Start 10/06/16 at 15:00 Metoprolol Succinate (Toprol Xl) 50 mg BID PO Last administered on 10/08/16 21 :05; Admin Dose 50 MG; Start 10/06/16 at 13:00 Pantoprazole (Protonix Tab) 40 mg DAILY@06 PO Last administered on 10/09/16 05 :58; Admin Dose 40 MG; Start 10/06/16 at 13:00 Cholecalciferol 2000 unit 2,000 unit DAILY PO Last administered on 10/09/16 09 :05; Admin Dose 2,000 UNIT; Start 10/06/16 at 13:00 Sodium Chloride (NS) 1,000 ml @ 20 mls/hr Q24H IV Last administered on 22:50; Admin Dose 40 MLS/HR; Start 10/06/16 at 13:14 Ondansetron HCl (Zofran Inj) 4 mg Q6H PRN IV NAUSEA AND/OR VOMITING; Start at 13:30 Acetaminophen (Tylenol Tab) 650 mg Q6H PRN PO PAIN LEVEL 1-3 OR FEVER Last administered on 10/07/16 13:10; Admin Dose 650 MG; Start 10/06/16 at 13:30 Acetaminophen/ Hydrocodone Bitart ([place] (5/325)) 1 tab Q6H PRN PO MODERATE PAIN LEVEL 4-6 Last administered on 10/08/16 05:52; Admin Dose 1 TAB; Start at 13:30 Acetaminophen/ Hydrocodone Bitart ([place] (5/325)) 2 tab Q6H PRN PO SEVERE PAIN LEVEL 7-10 Last administered on 10/08/16 16:52; Admin Dose 2 TAB; Start at 13:30 Docusate Sodium (Colace) 100 mg Q12H PRN PO CONSTIPATION; Start 10/06/16 at 13: 30 Magnesium Hydroxide (Milk Of Mag) 30 ml DAILY PRN PO CONSTIPATION; Start at 13:30 Zolpidem Tartrate 5 mg 5 mg QHS PRN PO SLEEP; Start 10/06/16 at 13:30 Ferric Sodium Gluconate Complex/ Sodium Chloride (Ferrlecit/NS) 110 ml @ 110 mls/hr Q24H IVPB Last administered on 10/09/16 10:51; Admin Dose 110 MLS/HR; Start 10/07/16 at 09:30; Stop 10/11/16 at 10:29 Epoetin Darvin (Epogen (Esrd)) 10,000 units TuThSa@17 SC Last administered on 18:55; Admin Dose 10,000 UNITS; Start 10/07/16 at 17:00 Mometasone Furoate (Asmanex) 1 puff BID INH Last administered on 10/09/16 09: 06; Admin Dose 1 PUFF; Start 10/07/16 at 11:30 Nystatin (Nystatin Powder) 1 applic DAILY TOP Last administered on 10/09/16 09 :07; Admin Dose 1 APPLIC; Start 10/07/16 at 12:30 Cyanocobalamin (Vitamin B12) 1,000 mcg DAILY PO Last administered on 10/09/16 09:06; Admin Dose 1,000 MCG; Start 10/08/16 at 09:00 Apixaban (Eliquis) 5 mg BID PO Last administered on 10/09/16 09:06; Admin Dose 5 MG; Start 10/08/16 at 09:00 Methylprednisolone Sodium Succinate (Solu-Medrol) 20 mg Q8 IV ; Start 10/09/16 at 14:00; Stop 10/09/16 at 23:00 Colchicine (Colchicine) 0.6 mg BID PO ; Start 10/09/16 at 21:00 LUDWIN DEVLIN 16, 2017 14:29
[2016-10-09] MEDS: METHYLPREDNISOLONE 40 MG INJ IV SCH ×2 (14:33→21:54)
--- NOTE | 2016-10-09 14:38 | PN ---
Date/Time of Note Date/Time of Note DATE: 10/09/16 TIME: 14:31 Assessment/Plan VTE Prophylaxis VTE Prophylaxis Intervention: SCD's Lines/Catheters IV Catheter Type (from Nrs): Peripheral IV Urinary Cath still in place: No Assessment/Plan Assessment/Plan 86 yo woman with some borderline issues. B12 is on the low side but that could be due to low binding proteins; MMA is pending. Iron given for possible iron deficiency but it is too early to see if she has responded. Hct stable at ~25; RBC's being given now in deference to her age and fragility. She may have atypical lymphocytes. SPEP is pending. Await the evaluation already ordered by Dr. Maddox. She does not seem to have any active clinical bleeding presently. Subjective 24 Hr Interval Summary Free Text/Dictation Pt is lying comfortably in bed. RBC transfusion is being given. Exam/Review of Systems Vital Signs Vitals Vital Signs Date Time Temp Pulse Resp B/P Pulse Ox O2 Delivery O2 Flow Rate FiO2 10/09/16 07:14 98.7 96 16 113/64 93 10/06/16 14:00 Room Air Intake and Output 10/08/16 10/08/16 10/09/16 15:00 23:00 07:00 Intake Total 1890 ml 420 ml Balance 1890 ml 420 ml Exam Constitutional: alert, oriented Head: normocephalic Eyes: other (pallor) ENMT: nl external ears & nose Neck: supple Respiratory: clear to auscultation Cardiovascular: regular rate and rhythm Gastrointestinal: non-tender, soft Lymph: nl lymph nodes Results Result Diagram: 10/09/16 0520 10/09/16 0520 Results 24 hrs Laboratory Tests Test 10/09/16 05:20 Anion Gap 16 Basophils # 0.0 Basophils % 0.2 Blood Urea Nitrogen 33 H C-Reactive Protein 14.3 H Calcium Level 8.1 L Carbon Dioxide Level 22 Chloride Level 108 Creatinine 1.26 H Eosinophils # 0.0 Eosinophils % 0.1 Glucose Level 181 Hematocrit 25.0 L Hemoglobin 7.8 L Lymphocytes # 0.5 L Lymphocytes % 5.0 L Magnesium Level 2.0 Mean Corpuscular Hemoglobin 29.8 Mean Corpuscular Hemoglobin Concent 31.2 L Mean Corpuscular Volume 95.4 Mean Platelet Volume 11.3 H Monocytes # 0.1 L Monocytes % 1.4 Neutrophils # 9.1 H Neutrophils % 92.3 H Nucleated Red Blood Cells # 0.0 Nucleated Red Blood Cells % 0.0 Phosphorus Level 2.6 Platelet Count 280 Potassium Level 4.7 Red Blood Count 2.62 L Red Cell Distribution Width 14.8 H Sodium Level 141 White Blood Count 9.9 Medications Medications Current Medications Atorvastatin Calcium (Lipitor) 10 mg HS PO Last administered on 10/08/16 21:05 ; Admin Dose 10 MG; Start 10/06/16 at 21:00 Calcium Carbonate (Oyster Shell Calcium) 1.25 gm BID PO Last administered on 09:06; Admin Dose 1.25 GM; Start 10/06/16 at 21:00 Magnesium Chloride (Mag 64) 64 mg TID PO Last administered on 10/09/16 12:52; Admin Dose 64 MG; Start 10/06/16 at 15:00 Metoprolol Succinate (Toprol Xl) 50 mg BID PO Last administered on 10/08/16 21 :05; Admin Dose 50 MG; Start 10/06/16 at 13:00 Pantoprazole (Protonix Tab) 40 mg DAILY@06 PO Last administered on 10/09/16 05 :58; Admin Dose 40 MG; Start 10/06/16 at 13:00 Cholecalciferol 2000 unit 2,000 unit DAILY PO Last administered on 10/09/16 09 :05; Admin Dose 2,000 UNIT; Start 10/06/16 at 13:00 Sodium Chloride (NS) 1,000 ml @ 20 mls/hr Q24H IV Last administered on 22:50; Admin Dose 40 MLS/HR; Start 10/06/16 at 13:14 Ondansetron HCl (Zofran Inj) 4 mg Q6H PRN IV NAUSEA AND/OR VOMITING; Start at 13:30 Acetaminophen (Tylenol Tab) 650 mg Q6H PRN PO PAIN LEVEL 1-3 OR FEVER Last administered on 10/07/16 13:10; Admin Dose 650 MG; Start 10/06/16 at 13:30 Acetaminophen/ Hydrocodone Bitart ([place] (5/325)) 1 tab Q6H PRN PO MODERATE PAIN LEVEL 4-6 Last administered on 10/08/16 05:52; Admin Dose 1 TAB; Start at 13:30 Acetaminophen/ Hydrocodone Bitart ([place] (5/325)) 2 tab Q6H PRN PO SEVERE PAIN LEVEL 7-10 Last administered on 10/08/16 16:52; Admin Dose 2 TAB; Start at 13:30 Docusate Sodium (Colace) 100 mg Q12H PRN PO CONSTIPATION; Start 10/06/16 at 13: 30 Magnesium Hydroxide (Milk Of Mag) 30 ml DAILY PRN PO CONSTIPATION; Start at 13:30 Zolpidem Tartrate 5 mg 5 mg QHS PRN PO SLEEP; Start 10/06/16 at 13:30 Ferric Sodium Gluconate Complex/ Sodium Chloride (Ferrlecit/NS) 110 ml @ 110 mls/hr Q24H IVPB Last administered on 10/09/16 10:51; Admin Dose 110 MLS/HR; Start 10/07/16 at 09:30; Stop 10/11/16 at 10:29 Epoetin Darvin (Epogen (Esrd)) 10,000 units TuThSa@17 SC Last administered on 18:55; Admin Dose 10,000 UNITS; Start 10/07/16 at 17:00 Mometasone Furoate (Asmanex) 1 puff BID INH Last administered on 10/09/16 09: 06; Admin Dose 1 PUFF; Start 10/07/16 at 11:30 Nystatin (Nystatin Powder) 1 applic DAILY TOP Last administered on 10/09/16 09 :07; Admin Dose 1 APPLIC; Start 10/07/16 at 12:30 Cyanocobalamin (Vitamin B12) 1,000 mcg DAILY PO Last administered on 10/09/16 09:06; Admin Dose 1,000 MCG; Start 10/08/16 at 09:00 Apixaban (Eliquis) 5 mg BID PO Last administered on 10/09/16 09:06; Admin Dose 5 MG; Start 10/08/16 at 09:00 Methylprednisolone Sodium Succinate (Solu-Medrol) 20 mg Q8 IV ; Start 10/09/16 at 14:00; Stop 10/09/16 at 23:00 Colchicine (Colchicine) 0.6 mg BID PO ; Start 10/09/16 at 21:00 JOSE FRITZ MD Oct 09, 2016 14:38
[2016-10-09] MEDS: EPOETIN 10000 UNITS/1 ML INJ (ESRD) SC SCH (17:25)
[2016-10-09 19:53] VITALS: BP 137/65; RESP 20
[2016-10-09 20:11] VITALS: PULSE 93
[2016-10-09] MEDS: ATORVASTATIN 10 MG TAB PO SCH (20:13)
[2016-10-09 23:31] LABS: ALBUMIN 3.2 g/dL (3.8-4.8)
[2016-10-10] MEDS: SOD CHLORIDE 0.9% 1,000 ML IV SCH ×2 (05:42→13:36)
[2016-10-10] MEDS: PANTOPRAZOLE (EC) 40 MG TAB PO SCH (05:42)
[2016-10-10 06:26] LABS: ADD SCAN DIFF NO
[2016-10-10 06:35] LABS: BASOPHILS % 0.1 % (0.0-2.0); HEMATOCRIT 32.5 % (37.0-47.0); HEMOGLOBIN 10.6 g/dl (12.0-16.0); LYMPHOCYTES # 0.7 10^3/ul (0.8-2.9); LYMPHOCYTES % 5.6 % (15.0-51.0); MEAN CORPUSCULAR HEMOGLOBIN 29.9 pg (29.0-33.0); MEAN CORPUSCULAR HGB CONC 32.6 g/dl (32.0-37.0); MEAN CORPUSCULAR VOLUME 91.8 fl (82.0-101.0); MEAN PLATELET VOLUME 11.1 fl (7.4-10.4); MONOCYTE # 0.5 10^3/ul (0.3-0.9); NEUTROPHIL # 10.6 10^3/ul (1.6-7.5); NEUTROPHILS % 89.2 % (39.0-77.0); NUCLEATED RED BLOOD CELLS% 0.3 /100WBC (0.0-0.0); PLATELET COUNT 280 10^3/UL (140-415); RED BLOOD COUNT 3.54 10^6/ul (4.20-5.40); RED CELL DISTRIBUTION WIDTH 15.9 % (11.5-14.5); WHITE BLOOD COUNT 11.9 10^3/ul (4.8-10.8)
[2016-10-10 06:50] LABS: CREATININE 1.1 mg/dl (0.44-1.00)
[2016-10-10 06:51] LABS: CALCIUM 8.8 mg/dl (8.4-10.2); MAGNESIUM 1.9 mg/dl (1.7-2.5); PHOSPHORUS 2.8 mg/dl (2.5-4.9)
[2016-10-10 07:10] VITALS: BP 137/70; RESP 18
--- NOTE | 2016-10-10 08:14 | CONS ---
Date/Time of Note Date/Time of Note DATE: 10/10/16 TIME: 08:10 Consult Date/Type/Reason Admit Date/Time Oct 07, 2016 at 08:32 Initial Consult Date 10/07/16 Type of Consultation: GI Ordering Provider: JOSE LEVIN MD Subjective No abdominal complaints Tolerating diet No gross bleeding Stool obtained and reported OB negative Objective Vital Signs Date Time Temp Pulse Resp B/P Pulse Ox O2 Delivery O2 Flow Rate FiO2 10/10/16 07:10 97.5 80 18 137/70 92 10/09/16 20:11 Room Air Abdoemen: soft, non tender Intake and Output 10/09/16 10/09/16 10/10/16 15:00 23:00 07:00 Intake Total 1730 ml 360 ml Output Total 0 ml Balance 1730 ml 360 ml Results/Medications Result Diagram: 10/10/16 0530 10/10/16 0530 Results 24 hrs Laboratory Tests Test 10/09/16 15:00 10/10/16 05:30 Stool Occult Blood NEGATIVE Anion Gap 13 Basophils # 0.0 Basophils % 0.1 Blood Urea Nitrogen 30 H Calcium Level 8.8 Carbon Dioxide Level 23 Chloride Level 109 Creatinine 1.10 H Eosinophils # 0.0 Eosinophils % 0.0 Glucose Level 173 Hematocrit 32.5 #L Hemoglobin 10.6 #L Lymphocytes # 0.7 L Lymphocytes % 5.6 L Magnesium Level 1.9 Mean Corpuscular Hemoglobin 29.9 Mean Corpuscular Hemoglobin Concent 32.6 Mean Corpuscular Volume 91.8 Mean Platelet Volume 11.1 H Monocytes # 0.5 Monocytes % 4.0 Neutrophils # 10.6 H Neutrophils % 89.2 H Nucleated Red Blood Cells # 0.0 Nucleated Red Blood Cells % 0.3 H Phosphorus Level 2.8 Platelet Count 280 Potassium Level 5.0 Red Blood Count 3.54 #L Red Cell Distribution Width 15.9 H Sodium Level 140 White Blood Count 11.9 #H Medications Current Medications Atorvastatin Calcium (Lipitor) 10 mg HS PO Last administered on 10/09/16 20:13 ; Admin Dose 10 MG; Start 10/06/16 at 21:00 Calcium Carbonate (Oyster Shell Calcium) 1.25 gm BID PO Last administered on 20:13; Admin Dose 1.25 GM; Start 10/06/16 at 21:00 Magnesium Chloride (Mag 64) 64 mg TID PO Last administered on 10/09/16 20:12; Admin Dose 64 MG; Start 10/06/16 at 15:00 Metoprolol Succinate (Toprol Xl) 50 mg BID PO Last administered on 10/09/16 20 :13; Admin Dose 50 MG; Start 10/06/16 at 13:00 Pantoprazole (Protonix Tab) 40 mg DAILY@06 PO Last administered on 10/10/16 05 :42; Admin Dose 40 MG; Start 10/06/16 at 13:00 Cholecalciferol 2000 unit 2,000 unit DAILY PO Last administered on 10/09/16 09 :05; Admin Dose 2,000 UNIT; Start 10/06/16 at 13:00 Sodium Chloride (NS) 1,000 ml @ 20 mls/hr Q24H IV Last administered on 05:42; Admin Dose 20 MLS/HR; Start 10/06/16 at 13:14 Ondansetron HCl (Zofran Inj) 4 mg Q6H PRN IV NAUSEA AND/OR VOMITING; Start at 13:30 Acetaminophen (Tylenol Tab) 650 mg Q6H PRN PO PAIN LEVEL 1-3 OR FEVER Last administered on 10/07/16 13:10; Admin Dose 650 MG; Start 10/06/16 at 13:30 Acetaminophen/ Hydrocodone Bitart ([place] (5/325)) 1 tab Q6H PRN PO MODERATE PAIN LEVEL 4-6 Last administered on 10/08/16 05:52; Admin Dose 1 TAB; Start at 13:30 Acetaminophen/ Hydrocodone Bitart ([place] (5/325)) 2 tab Q6H PRN PO SEVERE PAIN LEVEL 7-10 Last administered on 10/08/16 16:52; Admin Dose 2 TAB; Start at 13:30 Docusate Sodium (Colace) 100 mg Q12H PRN PO CONSTIPATION; Start 10/06/16 at 13: 30 Magnesium Hydroxide (Milk Of Mag) 30 ml DAILY PRN PO CONSTIPATION; Start at 13:30 Zolpidem Tartrate 5 mg 5 mg QHS PRN PO SLEEP; Start 10/06/16 at 13:30 Ferric Sodium Gluconate Complex/ Sodium Chloride (Ferrlecit/NS) 110 ml @ 110 mls/hr Q24H IVPB Last administered on 10/09/16 10:51; Admin Dose 110 MLS/HR; Start 10/07/16 at 09:30; Stop 10/11/16 at 10:29 Epoetin Darvin (Epogen (Esrd)) 10,000 units TuThSa@17 SC Last administered on 17:25; Admin Dose 10,000 UNITS; Start 10/07/16 at 17:00 Mometasone Furoate (Asmanex) 1 puff BID INH Last administered on 10/09/16 20: 18; Admin Dose 1 PUFF; Start 10/07/16 at 11:30 Nystatin (Nystatin Powder) 1 applic DAILY TOP Last administered on 10/09/16 09 :07; Admin Dose 1 APPLIC; Start 10/07/16 at 12:30 Cyanocobalamin (Vitamin B12) 1,000 mcg DAILY PO Last administered on 10/09/16 09:06; Admin Dose 1,000 MCG; Start 10/08/16 at 09:00 Apixaban (Eliquis) 5 mg BID PO Last administered on 10/09/16 20:13; Admin Dose 5 MG; Start 10/08/16 at 09:00 Colchicine (Colchicine) 0.6 mg BID PO Last administered on 10/09/16 20:13; Admin Dose 0.6 MG; Start 10/09/16 at 21:00 Assessment/Plan Chief Complaint/Hosp Course Impression: Iron Deficiency Anemia, no evidence of bleeding currently(OB-) - stable Plan: 1. Continue ppi indefinitely 2. Elective Colonoscopy and Endoscopy as OP in future once able to hold anticoagulation 3. I will sign off for now. Will be happy to see again at your request 3. EGD/Colonoscopy electively in future Problems: DACIA LACEY MD Oct 10, 2016 08:13
[2016-10-10] MEDS: CYANOCOBALAMIN 500 MCG TAB PO SCH (09:32)
[2016-10-10] MEDS: APIXABAN 5 MG TABLET PO SCH ×2 (09:33→20:36)
[2016-10-10] MEDS: CHOLECALCIFEROL 2,000 UNIT CAP PO SCH (09:33)
[2016-10-10] MEDS: LEVOTHYROXINE 112 MCG TAB PO SCH (09:33)
[2016-10-10] MEDS: MAGNESIUM CHLORIDE (SR) 64 MG TAB PO SCH ×3 (09:33→20:36)
[2016-10-10] MEDS: CALCIUM CARBONATE 1.25 GM TAB PO SCH ×2 (09:33→20:36)
[2016-10-10] MEDS: METOPROLOL (XL) 50 MG TAB PO SCH ×2 (09:34→20:36)
[2016-10-10] MEDS: NYSTATIN 30 GM POWDER BTL TOP SCH (09:34)
[2016-10-10] MEDS: MOMETASONE 0.24 GM INHALER INH SCH ×2 (09:37→20:37)
[2016-10-10] MEDS: SOD FERRIC GLUC COMPLX 125 MG in SOD CHLORIDE 0.9% 100 ML IVPB SCH (09:40)
[2016-10-10] MEDS: COLCHICINE 0.6 MG TAB PO SCH ×2 (09:41→20:36)
--- NOTE | 2016-10-10 09:44 | CONS ---
Date/Time of Note Date/Time of Note DATE: 10/10/16 TIME: 09:20 Assessment/Plan Assessment/Plan Chief Complaint/Hosp Course 1. Gout in both feet L >> R , seems to be getting better . Continue current medications , ambulate as tolerated 2. anemia improved after transfusion , stool is OB negative . GI has signed off . 3. DVT on Eliquis . 4. ARF improved off Lasix . Problems: Consultation Date/Type/Reason Admit Date/Time Oct 07, 2016 at 08:32 Initial Consult Date 10/07/16 Type of Consultation: GI Referring Provider: JOSE LEVIN MD 24 HR Interval Summary Free Text/Dictation She says that she is feeling better . She has less pain in her L foot . Constitutional: improved Exam/Review of Systems Vital Signs Vitals Vital Signs Date Time Temp Pulse Resp B/P Pulse Ox O2 Delivery O2 Flow Rate FiO2 10/10/16 07:10 97.5 80 18 137/70 92 10/09/16 20:11 Room Air Intake and Output 10/09/16 10/09/16 10/10/16 15:00 23:00 07:00 Intake Total 1730 ml 360 ml Output Total 0 ml Balance 1730 ml 360 ml Exam L foot is red and swollen at first MTP joint Constitutional: alert, oriented, well developed Respiratory: clear to auscultation, normal air movement Cardiovascular: regular rate and rhythm Gastrointestinal: soft Results Result Diagram: 10/10/16 0530 10/10/16 0530 Results 24 hrs Laboratory Tests Test 10/09/16 15:00 10/10/16 05:30 Stool Occult Blood NEGATIVE Anion Gap 13 Basophils # 0.0 Basophils % 0.1 Blood Urea Nitrogen 30 H Calcium Level 8.8 Carbon Dioxide Level 23 Chloride Level 109 Creatinine 1.10 H Eosinophils # 0.0 Eosinophils % 0.0 Glucose Level 173 Hematocrit 32.5 #L Hemoglobin 10.6 #L Lymphocytes # 0.7 L Lymphocytes % 5.6 L Magnesium Level 1.9 Mean Corpuscular Hemoglobin 29.9 Mean Corpuscular Hemoglobin Concent 32.6 Mean Corpuscular Volume 91.8 Mean Platelet Volume 11.1 H Monocytes # 0.5 Monocytes % 4.0 Neutrophils # 10.6 H Neutrophils % 89.2 H Nucleated Red Blood Cells # 0.0 Nucleated Red Blood Cells % 0.3 H Phosphorus Level 2.8 Platelet Count 280 Potassium Level 5.0 Red Blood Count 3.54 #L Red Cell Distribution Width 15.9 H Sodium Level 140 White Blood Count 11.9 #H Medications Medications Current Medications Atorvastatin Calcium (Lipitor) 10 mg HS PO Last administered on 10/09/16 20:13 ; Admin Dose 10 MG; Start 10/06/16 at 21:00 Calcium Carbonate (Oyster Shell Calcium) 1.25 gm BID PO Last administered on 20:13; Admin Dose 1.25 GM; Start 10/06/16 at 21:00 Magnesium Chloride (Mag 64) 64 mg TID PO Last administered on 10/09/16 20:12; Admin Dose 64 MG; Start 10/06/16 at 15:00 Metoprolol Succinate (Toprol Xl) 50 mg BID PO Last administered on 10/09/16 20 :13; Admin Dose 50 MG; Start 10/06/16 at 13:00 Pantoprazole (Protonix Tab) 40 mg DAILY@06 PO Last administered on 10/10/16 05 :42; Admin Dose 40 MG; Start 10/06/16 at 13:00 Cholecalciferol 2000 unit 2,000 unit DAILY PO Last administered on 10/09/16 09 :05; Admin Dose 2,000 UNIT; Start 10/06/16 at 13:00 Sodium Chloride (NS) 1,000 ml @ 20 mls/hr Q24H IV Last administered on 05:42; Admin Dose 20 MLS/HR; Start 10/06/16 at 13:14 Ondansetron HCl (Zofran Inj) 4 mg Q6H PRN IV NAUSEA AND/OR VOMITING; Start at 13:30 Acetaminophen (Tylenol Tab) 650 mg Q6H PRN PO PAIN LEVEL 1-3 OR FEVER Last administered on 10/07/16 13:10; Admin Dose 650 MG; Start 10/06/16 at 13:30 Acetaminophen/ Hydrocodone Bitart ([place] (5/325)) 1 tab Q6H PRN PO MODERATE PAIN LEVEL 4-6 Last administered on 10/08/16 05:52; Admin Dose 1 TAB; Start at 13:30 Acetaminophen/ Hydrocodone Bitart ([place] (5/325)) 2 tab Q6H PRN PO SEVERE PAIN LEVEL 7-10 Last administered on 10/08/16 16:52; Admin Dose 2 TAB; Start at 13:30 Docusate Sodium (Colace) 100 mg Q12H PRN PO CONSTIPATION; Start 10/06/16 at 13: 30 Magnesium Hydroxide (Milk Of Mag) 30 ml DAILY PRN PO CONSTIPATION; Start at 13:30 Zolpidem Tartrate 5 mg 5 mg QHS PRN PO SLEEP; Start 10/06/16 at 13:30 Ferric Sodium Gluconate Complex/ Sodium Chloride (Ferrlecit/NS) 110 ml @ 110 mls/hr Q24H IVPB Last administered on 10/09/16 10:51; Admin Dose 110 MLS/HR; Start 10/07/16 at 09:30; Stop 10/11/16 at 10:29 Epoetin Darvin (Epogen (Esrd)) 10,000 units TuThSa@17 SC Last administered on 17:25; Admin Dose 10,000 UNITS; Start 10/07/16 at 17:00 Mometasone Furoate (Asmanex) 1 puff BID INH Last administered on 10/09/16 20: 18; Admin Dose 1 PUFF; Start 10/07/16 at 11:30 Nystatin (Nystatin Powder) 1 applic DAILY TOP Last administered on 10/09/16 09 :07; Admin Dose 1 APPLIC; Start 10/07/16 at 12:30 Cyanocobalamin (Vitamin B12) 1,000 mcg DAILY PO Last administered on 10/09/16 09:06; Admin Dose 1,000 MCG; Start 10/08/16 at 09:00 Apixaban (Eliquis) 5 mg BID PO Last administered on 10/09/16 20:13; Admin Dose 5 MG; Start 10/08/16 at 09:00 Colchicine (Colchicine) 0.6 mg BID PO Last administered on 10/09/16 20:13; Admin Dose 0.6 MG; Start 10/09/16 at 21:00 JANIE JENNINGS MD Oct 10, 2016 09:36
--- NOTE | 2016-10-10 10:56 | PN ---
Date/Time of Note Date/Time of Note DATE: 10/10/16 TIME: 10:51 Assessment/Plan VTE Prophylaxis VTE Prophylaxis Intervention: other (per primary but concern about possible bleeding.) Lines/Catheters IV Catheter Type (from Nrs): Peripheral IV Urinary Cath still in place: No Assessment/Plan Assessment/Plan Pt is stable and says she feels better and is eating better this morning. She has received IV iron, B12 and EPO. Blood studies, including MMA, are pending. I will add folic acid to her oral regimen because of the elevated homocysteine. No other new suggestions at this time. Subjective 24 Hr Interval Summary Free Text/Dictation Pt says she feels better since the RBC transfusion yesterday. Exam/Review of Systems Vital Signs Vitals Vital Signs Date Time Temp Pulse Resp B/P Pulse Ox O2 Delivery O2 Flow Rate FiO2 10/10/16 07:10 97.5 80 18 137/70 92 10/09/16 20:11 Room Air Intake and Output 10/09/16 10/09/16 10/10/16 15:00 23:00 07:00 Intake Total 1730 ml 360 ml Output Total 0 ml Balance 1730 ml 360 ml Exam Constitutional: alert Psych: no complaints Neck: supple Respiratory: clear to auscultation Cardiovascular: regular rate and rhythm Gastrointestinal: nl liver, spleen, non-tender, soft Skin: nl turgor Lymph: nl lymph nodes Results Result Diagram: 10/10/16 0530 10/10/16 0530 Results 24 hrs Laboratory Tests Test 10/09/16 15:00 10/10/16 05:30 Stool Occult Blood NEGATIVE Anion Gap 13 Basophils # 0.0 Basophils % 0.1 Blood Urea Nitrogen 30 H Calcium Level 8.8 Carbon Dioxide Level 23 Chloride Level 109 Creatinine 1.10 H Eosinophils # 0.0 Eosinophils % 0.0 Glucose Level 173 Hematocrit 32.5 #L Hemoglobin 10.6 #L Lymphocytes # 0.7 L Lymphocytes % 5.6 L Magnesium Level 1.9 Mean Corpuscular Hemoglobin 29.9 Mean Corpuscular Hemoglobin Concent 32.6 Mean Corpuscular Volume 91.8 Mean Platelet Volume 11.1 H Monocytes # 0.5 Monocytes % 4.0 Neutrophils # 10.6 H Neutrophils % 89.2 H Nucleated Red Blood Cells # 0.0 Nucleated Red Blood Cells % 0.3 H Phosphorus Level 2.8 Platelet Count 280 Potassium Level 5.0 Red Blood Count 3.54 #L Red Cell Distribution Width 15.9 H Sodium Level 140 White Blood Count 11.9 #H Medications Medications Current Medications Atorvastatin Calcium (Lipitor) 10 mg HS PO Last administered on 10/09/16 20:13 ; Admin Dose 10 MG; Start 10/06/16 at 21:00 Calcium Carbonate (Oyster Shell Calcium) 1.25 gm BID PO Last administered on 09:33; Admin Dose 1.25 GM; Start 10/06/16 at 21:00 Magnesium Chloride (Mag 64) 64 mg TID PO Last administered on 10/10/16 09:33; Admin Dose 64 MG; Start 10/06/16 at 15:00 Metoprolol Succinate (Toprol Xl) 50 mg BID PO Last administered on 10/10/16 09 :34; Admin Dose 50 MG; Start 10/06/16 at 13:00 Pantoprazole (Protonix Tab) 40 mg DAILY@06 PO Last administered on 10/10/16 05 :42; Admin Dose 40 MG; Start 10/06/16 at 13:00 Cholecalciferol 2000 unit 2,000 unit DAILY PO Last administered on 10/10/16 09 :33; Admin Dose 2,000 UNIT; Start 10/06/16 at 13:00 Sodium Chloride (NS) 1,000 ml @ 20 mls/hr Q24H IV Last administered on 05:42; Admin Dose 20 MLS/HR; Start 10/06/16 at 13:14 Ondansetron HCl (Zofran Inj) 4 mg Q6H PRN IV NAUSEA AND/OR VOMITING; Start at 13:30 Acetaminophen (Tylenol Tab) 650 mg Q6H PRN PO PAIN LEVEL 1-3 OR FEVER Last administered on 10/07/16 13:10; Admin Dose 650 MG; Start 10/06/16 at 13:30 Acetaminophen/ Hydrocodone Bitart ([place] (5/325)) 1 tab Q6H PRN PO MODERATE PAIN LEVEL 4-6 Last administered on 10/08/16 05:52; Admin Dose 1 TAB; Start at 13:30 Acetaminophen/ Hydrocodone Bitart ([place] (5/325)) 2 tab Q6H PRN PO SEVERE PAIN LEVEL 7-10 Last administered on 10/08/16 16:52; Admin Dose 2 TAB; Start at 13:30 Docusate Sodium (Colace) 100 mg Q12H PRN PO CONSTIPATION; Start 10/06/16 at 13: 30 Magnesium Hydroxide (Milk Of Mag) 30 ml DAILY PRN PO CONSTIPATION; Start at 13:30 Zolpidem Tartrate 5 mg 5 mg QHS PRN PO SLEEP; Start 10/06/16 at 13:30 Ferric Sodium Gluconate Complex/ Sodium Chloride (Ferrlecit/NS) 110 ml @ 110 mls/hr Q24H IVPB Last administered on 10/10/16 09:40; Admin Dose 110 MLS/HR; Start 10/07/16 at 09:30; Stop 10/11/16 at 10:29 Epoetin Darvin (Epogen (Esrd)) 10,000 units TuThSa@17 SC Last administered on 17:25; Admin Dose 10,000 UNITS; Start 10/07/16 at 17:00 Mometasone Furoate (Asmanex) 1 puff BID INH Last administered on 10/10/16 09: 37; Admin Dose 1 PUFF; Start 10/07/16 at 11:30 Nystatin (Nystatin Powder) 1 applic DAILY TOP Last administered on 10/10/16 09 :34; Admin Dose 1 APPLIC; Start 10/07/16 at 12:30 Cyanocobalamin (Vitamin B12) 1,000 mcg DAILY PO Last administered on 10/10/16 09:32; Admin Dose 1,000 MCG; Start 10/08/16 at 09:00 Apixaban (Eliquis) 5 mg BID PO Last administered on 10/10/16 09:33; Admin Dose 5 MG; Start 10/08/16 at 09:00 Colchicine (Colchicine) 0.6 mg BID PO Last administered on 10/10/16 09:41; Admin Dose 0.6 MG; Start 10/09/16 at 21:00 JOSE FRITZ MD Oct 10, 2016 10:56
[2016-10-10] MEDS: FOLIC ACID 1 MG TAB PO SCH (11:44)
--- NOTE | 2016-10-10 14:49 | CONS ---
Date/Time of Note Date/Time of Note DATE: 10/10/16 TIME: 14:29 Consult Date/Type/Reason Admit Date/Time Oct 07, 2016 at 08:32 Initial Consult Date 10/07/16 Type of Consultation: Rheum Ordering Provider: JOSE LEVIN MD Subjective Feels better. Less pain at feet. Less swelling at toes. No new other complaints. Objective Alert. Oriented times three. Skin without rash. Chest clear Heart RRR Abd soft. Ext. Mild tenderness only, at 1st MTP joints. left one without definite swelling. Vital Signs Date Time Temp Pulse Resp B/P Pulse Ox O2 Delivery O2 Flow Rate FiO2 10/10/16 07:10 97.5 80 18 137/70 92 10/09/16 20:11 Room Air Intake and Output 10/09/16 10/09/16 10/10/16 15:00 23:00 07:00 Intake Total 1730 ml 360 ml Output Total 0 ml Balance 1730 ml 360 ml Results/Medications Result Diagram: 10/10/16 0530 10/10/16 0530 Results 24 hrs Laboratory Tests Test 10/09/16 15:00 10/10/16 05:30 10/10/16 08:20 Stool Occult Blood NEGATIVE NEGATIVE Anion Gap 13 Basophils # 0.0 Basophils % 0.1 Blood Urea Nitrogen 30 H Calcium Level 8.8 Carbon Dioxide Level 23 Chloride Level 109 Creatinine 1.10 H Eosinophils # 0.0 Eosinophils % 0.0 Glucose Level 173 Hematocrit 32.5 #L Hemoglobin 10.6 #L Lymphocytes # 0.7 L Lymphocytes % 5.6 L Magnesium Level 1.9 Mean Corpuscular Hemoglobin 29.9 Mean Corpuscular Hemoglobin Concent 32.6 Mean Corpuscular Volume 91.8 Mean Platelet Volume 11.1 H Monocytes # 0.5 Monocytes % 4.0 Neutrophils # 10.6 H Neutrophils % 89.2 H Nucleated Red Blood Cells # 0.0 Nucleated Red Blood Cells % 0.3 H Phosphorus Level 2.8 Platelet Count 280 Potassium Level 5.0 Red Blood Count 3.54 #L Red Cell Distribution Width 15.9 H Sodium Level 140 White Blood Count 11.9 #H Medications Current Medications Atorvastatin Calcium (Lipitor) 10 mg HS PO Last administered on 10/09/16t 20:13 ; Admin Dose 10 MG; Start 10/06/16 at 21:00 Calcium Carbonate (Oyster Shell Calcium) 1.25 gm BID PO Last administered on 09:33; Admin Dose 1.25 GM; Start 10/06/16 at 21:00 Magnesium Chloride (Mag 64) 64 mg TID PO Last administered on 10/10/16 13:36; Admin Dose 64 MG; Start 10/06/16 at 15:00 Metoprolol Succinate (Toprol Xl) 50 mg BID PO Last administered on 10/10/16 09 :34; Admin Dose 50 MG; Start 10/06/16 at 13:00 Pantoprazole (Protonix Tab) 40 mg DAILY@06 PO Last administered on 10/10/16 05 :42; Admin Dose 40 MG; Start 10/06/16 at 13:00 Cholecalciferol 2000 unit 2,000 unit DAILY PO Last administered on 10/10/16 09 :33; Admin Dose 2,000 UNIT; Start 10/06/16 at 13:00 Sodium Chloride (NS) 1,000 ml @ 20 mls/hr Q24H IV Last administered on 13:36; Admin Dose 20 MLS/HR; Start 10/06/16 at 13:14 Ondansetron HCl (Zofran Inj) 4 mg Q6H PRN IV NAUSEA AND/OR VOMITING; Start at 13:30 Acetaminophen (Tylenol Tab) 650 mg Q6H PRN PO PAIN LEVEL 1-3 OR FEVER Last administered on 10/07/16 13:10; Admin Dose 650 MG; Start 10/06/16 at 13:30 Acetaminophen/ Hydrocodone Bitart ([place] (5/325)) 1 tab Q6H PRN PO MODERATE PAIN LEVEL 4-6 Last administered on 10/08/16 05:52; Admin Dose 1 TAB; Start at 13:30 Acetaminophen/ Hydrocodone Bitart ([place] (5/325)) 2 tab Q6H PRN PO SEVERE PAIN LEVEL 7-10 Last administered on 10/08/16 16:52; Admin Dose 2 TAB; Start at 13:30 Docusate Sodium (Colace) 100 mg Q12H PRN PO CONSTIPATION; Start 10/06/16 at 13: 30 Magnesium Hydroxide (Milk Of Mag) 30 ml DAILY PRN PO CONSTIPATION; Start at 13:30 Zolpidem Tartrate 5 mg 5 mg QHS PRN PO SLEEP; Start 10/06/16 at 13:30 Ferric Sodium Gluconate Complex/ Sodium Chloride (Ferrlecit/NS) 110 ml @ 110 mls/hr Q24H IVPB Last administered on 10/10/16 09:40; Admin Dose 110 MLS/HR; Start 10/07/16 at 09:30; Stop 10/11/16 at 10:29 Epoetin Darvin (Epogen (Esrd)) 10,000 units TuThSa@17 SC Last administered on 17:25; Admin Dose 10,000 UNITS; Start 10/07/16 at 17:00 Mometasone Furoate (Asmanex) 1 puff BID INH Last administered on 10/10/16 09: 37; Admin Dose 1 PUFF; Start 10/07/16 at 11:30 Nystatin (Nystatin Powder) 1 applic DAILY TOP Last administered on 10/10/16 09 :34; Admin Dose 1 APPLIC; Start 10/07/16 at 12:30 Cyanocobalamin (Vitamin B12) 1,000 mcg DAILY PO Last administered on 10/10/16 09:32; Admin Dose 1,000 MCG; Start 10/08/16 at 09:00 Apixaban (Eliquis) 5 mg BID PO Last administered on 10/10/16 09:33; Admin Dose 5 MG; Start 10/08/16 at 09:00 Colchicine (Colchicine) 0.6 mg BID PO Last administered on 10/10/16 09:41; Admin Dose 0.6 MG; Start 10/09/16 at 21:00 Folic Acid (Folic Acid) 1 mg DAILY PO Last administered on 10/10/16 11:44; Admin Dose 1 MG; Start 10/10/16 at 11:00 Assessment/Plan Chief Complaint/Hosp Course Ass. 1. Acute gout feet. Improving with steroids. 2. Anemia,. Unclear etiol. Improved with transfusion. SPEP without monoclonal band. 3. Renal insuf.. Improved. Plan. Will decrease Solumedrol to bid Problems: ONEL CHAUDHARY MD Oct 10, 2016 14:39
[2016-10-10] MEDS: METHYLPREDNISOLONE 40 MG INJ IV SCH (15:42)
[2016-10-10 19:24] LABS: INTRINSIC FACTOR AB NEGATIVE
[2016-10-10 20:36] VITALS: BP 164/77; RESP 20
[2016-10-10] MEDS: ATORVASTATIN 10 MG TAB PO SCH (20:36)
--- NOTE | 2016-10-11 05:05 | CONS ---
Date/Time of Note Date/Time of Note DATE: 10/11/16 TIME: 05:04 Assessment/Plan Assessment/Plan Additional Assessment/Plan 1. Gout in both feet L >> R , seems to be getting better . Continue current medications , ambulate as tolerated 2. anemia improved after transfusion , stool is OB negative . GI has signed off . 3. DVT on Eliquis . 4. ARF improved off Lasix . 5. continue rehab PT/OT Coverage for Dr. Núñez Consultation Date/Type/Reason Admit Date/Time Oct 07, 2016 at 08:32 Initial Consult Date 10/07/16 Type of Consultation: Rheum Referring Provider: JOSE LEVIN MD 24 HR Interval Summary Free Text/Dictation decreased pain, getting pain meds Exam/Review of Systems Vital Signs Vitals Vital Signs Date Time Temp Pulse Resp B/P Pulse Ox O2 Delivery O2 Flow Rate FiO2 10/10/16 20:36 97.8 88 20 164/77 93 10/09/16 20:11 Room Air Intake and Output 10/10/16 10/10/16 10/11/16 14:59 22:59 06:59 Intake Total 1870 ml Output Total 3 ml Balance 1867 ml Exam Constitutional: alert, oriented, well developed Head: normocephalic Respiratory: clear to auscultation, normal air movement Gastrointestinal: nl liver, spleen, soft Extremities: normal pulses, No calf tenderness Results Result Diagram: 10/10/16 0530 10/10/16 0530 Results 24 hrs Laboratory Tests Test 10/10/16 05:30 10/10/16 08:20 10/10/16 15:10 Anion Gap 13 Basophils # 0.0 Basophils % 0.1 Blood Urea Nitrogen 30 H Calcium Level 8.8 Carbon Dioxide Level 23 Chloride Level 109 Creatinine 1.10 H Eosinophils # 0.0 Eosinophils % 0.0 Glucose Level 173 Hematocrit 32.5 #L Hemoglobin 10.6 #L Lymphocytes # 0.7 L Lymphocytes % 5.6 L Magnesium Level 1.9 Mean Corpuscular Hemoglobin 29.9 Mean Corpuscular Hemoglobin Concent 32.6 Mean Corpuscular Volume 91.8 Mean Platelet Volume 11.1 H Monocytes # 0.5 Monocytes % 4.0 Neutrophils # 10.6 H Neutrophils % 89.2 H Nucleated Red Blood Cells # 0.0 Nucleated Red Blood Cells % 0.3 H Phosphorus Level 2.8 Platelet Count 280 Potassium Level 5.0 Red Blood Count 3.54 #L Red Cell Distribution Width 15.9 H Sodium Level 140 White Blood Count 11.9 #H Stool Occult Blood NEGATIVE NEGATIVE Medications Medications Current Medications Atorvastatin Calcium (Lipitor) 10 mg HS PO Last administered on 10/10/16 20:36 ; Admin Dose 10 MG; Start 10/06/16 at 21:00 Calcium Carbonate (Oyster Shell Calcium) 1.25 gm BID PO Last administered on 20:36; Admin Dose 1.25 GM; Start 10/06/16 at 21:00 Magnesium Chloride (Mag 64) 64 mg TID PO Last administered on 10/10/16 20:36; Admin Dose 64 MG; Start 10/06/16 at 15:00 Metoprolol Succinate (Toprol Xl) 50 mg BID PO Last administered on 10/10/16 20 :36; Admin Dose 50 MG; Start 10/06/16 at 13:00 Pantoprazole (Protonix Tab) 40 mg DAILY@06 PO Last administered on 10/10/16 05 :42; Admin Dose 40 MG; Start 10/06/16 at 13:00 Cholecalciferol 2000 unit 2,000 unit DAILY PO Last administered on 10/10/16 09 :33; Admin Dose 2,000 UNIT; Start 10/06/16 at 13:00 Sodium Chloride (NS) 1,000 ml @ 20 mls/hr Q24H IV Last administered on 13:36; Admin Dose 20 MLS/HR; Start 10/06/16 at 13:14 Ondansetron HCl (Zofran Inj) 4 mg Q6H PRN IV NAUSEA AND/OR VOMITING; Start at 13:30 Acetaminophen (Tylenol Tab) 650 mg Q6H PRN PO PAIN LEVEL 1-3 OR FEVER Last administered on 10/07/16 13:10; Admin Dose 650 MG; Start 10/06/16 at 13:30 Acetaminophen/ Hydrocodone Bitart ([place] (5/325)) 1 tab Q6H PRN PO MODERATE PAIN LEVEL 4-6 Last administered on 10/08/16 05:52; Admin Dose 1 TAB; Start at 13:30 Acetaminophen/ Hydrocodone Bitart ([place] (5/325)) 2 tab Q6H PRN PO SEVERE PAIN LEVEL 7-10 Last administered on 10/08/16 16:52; Admin Dose 2 TAB; Start at 13:30 Docusate Sodium (Colace) 100 mg Q12H PRN PO CONSTIPATION; Start 10/06/16 at 13: 30 Magnesium Hydroxide (Milk Of Mag) 30 ml DAILY PRN PO CONSTIPATION; Start at 13:30 Zolpidem Tartrate 5 mg 5 mg QHS PRN PO SLEEP; Start 10/06/16 at 13:30 Ferric Sodium Gluconate Complex/ Sodium Chloride (Ferrlecit/NS) 110 ml @ 110 mls/hr Q24H IVPB Last administered on 10/10/16 09:40; Admin Dose 110 MLS/HR; Start 10/07/16 at 09:30; Stop 10/11/16 at 10:29 Epoetin Darvin (Epogen (Esrd)) 10,000 units TuThSa@17 SC Last administered on 17:25; Admin Dose 10,000 UNITS; Start 10/07/16 at 17:00 Mometasone Furoate (Asmanex) 1 puff BID INH Last administered on 10/10/16 20: 37; Admin Dose 1 PUFF; Start 10/07/16 at 11:30 Nystatin (Nystatin Powder) 1 applic DAILY TOP Last administered on 10/10/16 09 :34; Admin Dose 1 APPLIC; Start 10/07/16 at 12:30 Cyanocobalamin (Vitamin B12) 1,000 mcg DAILY PO Last administered on 10/10/16 09:32; Admin Dose 1,000 MCG; Start 10/08/16 at 09:00 Apixaban (Eliquis) 5 mg BID PO Last administered on 10/10/16 20:36; Admin Dose 5 MG; Start 10/08/16 at 09:00 Colchicine (Colchicine) 0.6 mg BID PO Last administered on 10/10/16 20:36; Admin Dose 0.6 MG; Start 10/09/16 at 21:00 Folic Acid (Folic Acid) 1 mg DAILY PO Last administered on 10/10/16 11:44; Admin Dose 1 MG; Start 10/10/16 at 11:00 Methylprednisolone Sodium Succinate (Solu-Medrol) 20 mg Q24H IV Last administered on 10/10/16t 15:42; Admin Dose 20 MG; Start 10/10/16 at 15:00; Stop 10/11/16 at 16:00 ADRIENNE GALLEGOS MD Oct 11, 2016 05:05
[2016-10-11 05:08] LABS: ADD SCAN DIFF NO
[2016-10-11] MEDS: PANTOPRAZOLE (EC) 40 MG TAB PO SCH (05:13)
[2016-10-11 05:17] LABS: BASOPHILS % 0.3 % (0.0-2.0); EOSINOPHILS # 0.1 10^3/ul (0.0-0.5); EOSINOPHILS % 0.4 % (0.0-7.0); HEMATOCRIT 32.9 % (37.0-47.0); HEMOGLOBIN 10.3 g/dl (12.0-16.0); LYMPHOCYTES # 0.9 10^3/ul (0.8-2.9); LYMPHOCYTES % 7.9 % (15.0-51.0); MEAN CORPUSCULAR HGB CONC 31.3 g/dl (32.0-37.0); MEAN CORPUSCULAR VOLUME 92.7 fl (82.0-101.0); MEAN PLATELET VOLUME 10.6 fl (7.4-10.4); MONOCYTE # 0.9 10^3/ul (0.3-0.9); MONOCYTES % 7.2 % (0.0-11.0); NEUTROPHIL # 9.7 10^3/ul (1.6-7.5); NUCLEATED RED BLOOD CELLS # 0.1 10^3/ul (0.0-0.0); NUCLEATED RED BLOOD CELLS% 0.8 /100WBC (0.0-0.0); PLATELET COUNT 321 10^3/UL (140-415); RED BLOOD COUNT 3.55 10^6/ul (4.20-5.40); RED CELL DISTRIBUTION WIDTH 15.9 % (11.5-14.5); WHITE BLOOD COUNT 11.8 10^3/ul (4.8-10.8)
[2016-10-11 05:43] LABS: ALBUMIN 3.2 g/dl (3.3-4.9)
[2016-10-11 05:44] LABS: POTASSIUM 5.1 mmol/L (3.5-5.1)
[2016-10-11 05:46] LABS: CREATININE 1.3 mg/dl (0.44-1.00)
[2016-10-11 05:47] LABS: CALCIUM 8.5 mg/dl (8.4-10.2); TOTAL PROTEIN 6.4 g/dl (6.1-8.1)
[2016-10-11 07:23] VITALS: BP 166/92; RESP 16
--- NOTE | 2016-10-11 08:28 | CONS ---
Date/Time of Note Date/Time of Note DATE: 10/11/16 TIME: 08:22 Consult Date/Type/Reason Admit Date/Time Oct 07, 2016 at 08:32 Initial Consult Date 10/07/16 Type of Consultation: Rheum Ordering Provider: JOSE LEVIN MD Subjective No new issues. Feels good. Slight shortness of breath while working with nurse this am and getting out of bed. Otherwise no complaints. Objective Vital Signs Date Time Temp Pulse Resp B/P Pulse Ox O2 Delivery O2 Flow Rate FiO2 10/11/16 07:23 97.7 87 16 166/92 95 10/09/16 20:11 Room Air Intake and Output 10/10/16 10/10/16 10/11/16 15:00 23:00 07:00 Intake Total 1870 ml 640 ml Output Total 3 ml Balance 1867 ml 640 ml NAD/A&O x 4 OP clear JVD not elevated RRR no m/g/r Mild wheezing bilaterally Obese, +BS, No HSM, 1+ edema Results/Medications Result Diagram: 10/11/16 0435 10/11/16 0435 Results 24 hrs Laboratory Tests Test 10/10/16 15:10 10/11/16 04:35 Stool Occult Blood NEGATIVE Alanine Aminotransferase (ALT/SGPT) 34 Albumin 3.2 L Albumin/Globulin Ratio 1.00 Alkaline Phosphatase 102 Anion Gap 14 Aspartate Amino Transf (AST/SGOT) 25 Basophils # 0.0 Basophils % 0.3 Blood Urea Nitrogen 31 H Calcium Level 8.5 Carbon Dioxide Level 24 Chloride Level 106 Creatinine 1.30 H Direct Bilirubin 0.00 Eosinophils # 0.1 Eosinophils % 0.4 Globulin 3.20 Glucose Level 169 Hematocrit 32.9 L Hemoglobin 10.3 L Indirect Bilirubin 0.0 Lymphocytes # 0.9 Lymphocytes % 7.9 L Mean Corpuscular Hemoglobin 29.0 Mean Corpuscular Hemoglobin Concent 31.3 L Mean Corpuscular Volume 92.7 Mean Platelet Volume 10.6 H Monocytes # 0.9 Monocytes % 7.2 Neutrophils # 9.7 H Neutrophils % 82.0 H Nucleated Red Blood Cells # 0.1 H Nucleated Red Blood Cells % 0.8 H Platelet Count 321 Potassium Level 5.1 Red Blood Count 3.55 L Red Cell Distribution Width 15.9 H Sodium Level 139 Total Bilirubin 0.0 L Total Protein 6.4 White Blood Count 11.8 H Medications Current Medications Atorvastatin Calcium (Lipitor) 10 mg HS PO Last administered on 10/10/16 20:36 ; Admin Dose 10 MG; Start 10/06/16 at 21:00 Calcium Carbonate (Oyster Shell Calcium) 1.25 gm BID PO Last administered on 20:36; Admin Dose 1.25 GM; Start 10/06/16 at 21:00 Magnesium Chloride (Mag 64) 64 mg TID PO Last administered on 10/10/16 20:36; Admin Dose 64 MG; Start 10/06/16 at 15:00 Metoprolol Succinate (Toprol Xl) 50 mg BID PO Last administered on 10/10/16 20 :36; Admin Dose 50 MG; Start 10/06/16 at 13:00 Pantoprazole (Protonix Tab) 40 mg DAILY@06 PO Last administered on 10/11/16 05 :13; Admin Dose 40 MG; Start 10/06/16 at 13:00 Cholecalciferol 2000 unit 2,000 unit DAILY PO Last administered on 10/10/16 09 :33; Admin Dose 2,000 UNIT; Start 10/06/16 at 13:00 Sodium Chloride (NS) 1,000 ml @ 20 mls/hr Q24H IV Last administered on 13:36; Admin Dose 20 MLS/HR; Start 10/06/16 at 13:14 Ondansetron HCl (Zofran Inj) 4 mg Q6H PRN IV NAUSEA AND/OR VOMITING; Start at 13:30 Acetaminophen (Tylenol Tab) 650 mg Q6H PRN PO PAIN LEVEL 1-3 OR FEVER Last administered on 10/07/16 13:10; Admin Dose 650 MG; Start 10/06/16 at 13:30 Acetaminophen/ Hydrocodone Bitart ([place] (5/325)) 1 tab Q6H PRN PO MODERATE PAIN LEVEL 4-6 Last administered on 10/08/16 05:52; Admin Dose 1 TAB; Start at 13:30 Acetaminophen/ Hydrocodone Bitart ([place] (5/325)) 2 tab Q6H PRN PO SEVERE PAIN LEVEL 7-10 Last administered on 10/08/16 16:52; Admin Dose 2 TAB; Start at 13:30 Docusate Sodium (Colace) 100 mg Q12H PRN PO CONSTIPATION; Start 10/06/16 at 13: 30 Magnesium Hydroxide (Milk Of Mag) 30 ml DAILY PRN PO CONSTIPATION; Start at 13:30 Zolpidem Tartrate 5 mg 5 mg QHS PRN PO SLEEP; Start 10/06/16 at 13:30 Ferric Sodium Gluconate Complex/ Sodium Chloride (Ferrlecit/NS) 110 ml @ 110 mls/hr Q24H IVPB Last administered on 10/10/16 09:40; Admin Dose 110 MLS/HR; Start 10/07/16 at 09:30; Stop 10/11/16 at 10:29 Epoetin Darvin (Epogen (Esrd)) 10,000 units TuThSa@17 SC Last administered on 17:25; Admin Dose 10,000 UNITS; Start 10/07/16 at 17:00 Mometasone Furoate (Asmanex) 1 puff BID INH Last administered on 10/10/16 20: 37; Admin Dose 1 PUFF; Start 10/07/16 at 11:30 Nystatin (Nystatin Powder) 1 applic DAILY TOP Last administered on 10/10/16 09 :34; Admin Dose 1 APPLIC; Start 10/07/16 at 12:30 Cyanocobalamin (Vitamin B12) 1,000 mcg DAILY PO Last administered on 10/10/16 09:32; Admin Dose 1,000 MCG; Start 10/08/16 at 09:00 Apixaban (Eliquis) 5 mg BID PO Last administered on 10/10/16 20:36; Admin Dose 5 MG; Start 10/08/16 at 09:00 Colchicine (Colchicine) 0.6 mg BID PO Last administered on 10/10/16 20:36; Admin Dose 0.6 MG; Start 10/09/16 at 21:00 Folic Acid (Folic Acid) 1 mg DAILY PO Last administered on 10/10/16 11:44; Admin Dose 1 MG; Start 10/10/16 at 11:00 Methylprednisolone Sodium Succinate (Solu-Medrol) 20 mg Q24H IV Last administered on 10/10/16 15:42; Admin Dose 20 MG; Start 10/10/16 at 15:00; Stop 10/11/16 at 16:00 Assessment/Plan Problems: (1) Pneumonia (2) Acute renal failure (3) DVT (deep venous thrombosis) (4) Peripheral edema Additional Assessment/Plan 1. Anemia: Mild iron def and b12 def. No signs of pernicious anemia. S/p 2upRBC on 10/09. No signs of hemolysis or myeloma. S/p IV iron and B12 IM. Hb stable today. 2. DVT: On Eliquis 5mg bid. Consider switching dose to 2.5mg bid if Cr goes over 1.5. 3. PNA: per primary team Will follow BUTCH HOROWITZ Oct 11, 2016 08:28
[2016-10-11] MEDS: MOMETASONE 0.24 GM INHALER INH SCH ×2 (08:50→22:05)
[2016-10-11] MEDS: LEVOTHYROXINE 112 MCG TAB PO SCH (08:51)
[2016-10-11] MEDS: FOLIC ACID 1 MG TAB PO SCH (08:51)
[2016-10-11] MEDS: CALCIUM CARBONATE 1.25 GM TAB PO SCH ×2 (08:51→22:06)
[2016-10-11] MEDS: COLCHICINE 0.6 MG TAB PO SCH ×2 (08:51→22:06)
[2016-10-11] MEDS: CYANOCOBALAMIN 500 MCG TAB PO SCH (08:51)
[2016-10-11] MEDS: CHOLECALCIFEROL 2,000 UNIT CAP PO SCH (08:51)
[2016-10-11] MEDS: MAGNESIUM CHLORIDE (SR) 64 MG TAB PO SCH ×3 (08:51→22:05)
[2016-10-11] MEDS: APIXABAN 5 MG TABLET PO SCH ×2 (08:51→22:06)
[2016-10-11] MEDS: METOPROLOL (XL) 50 MG TAB PO SCH ×2 (08:52→22:06)
[2016-10-11] MEDS: NYSTATIN 30 GM POWDER BTL TOP SCH (08:52)
[2016-10-11] MEDS: SOD FERRIC GLUC COMPLX 125 MG in SOD CHLORIDE 0.9% 100 ML IVPB SCH (09:53)
[2016-10-11] MEDS: METHYLPREDNISOLONE 40 MG INJ IV SCH (14:08)
[2016-10-11] MEDS: SOD CHLORIDE 0.9% 1,000 ML IV SCH (15:14)
[2016-10-11] MEDS: ACETAMINOPHEN 325 MG TAB PO PRN (16:22)
[2016-10-11] MEDS: ALBUTEROL/IPRATROPIUM (NEB) 3 ML AMP HHN PRN ×2 (16:34→22:02)
[2016-10-11] MEDS: EPOETIN 10000 UNITS/1 ML INJ (ESRD) SC SCH (18:44)
[2016-10-11 20:25] VITALS: BP 133/82; RESP 21
[2016-10-11] MEDS: ATORVASTATIN 10 MG TAB PO SCH (22:05)
[2016-10-12] MEDS: SOD CHLORIDE 0.9% 1,000 ML IV SCH ×2 (04:36→15:14)
[2016-10-12] MEDS: PANTOPRAZOLE (EC) 40 MG TAB PO SCH (05:35)
[2016-10-12 07:31] VITALS: BP 161/83; RESP 18
[2016-10-12] MEDS: LEVOTHYROXINE 112 MCG TAB PO SCH (07:34)
--- NOTE | 2016-10-12 08:00 | CONS ---
Date/Time of Note Date/Time of Note DATE: 10/12/16 TIME: 07:58 Consult Date/Type/Reason Admit Date/Time Oct 07, 2016 at 08:32 Initial Consult Date 10/07/16 Type of Consultation: Rheum Ordering Provider: JOSE LEVIN MD Subjective Pt had some episodes of sob yesterday. Improved after breathing tx. Otherwise no new issues. No chest pain. Feels well this am. Denies pain. Objective Vital Signs Date Time Temp Pulse Resp B/P Pulse Ox O2 Delivery O2 Flow Rate FiO2 10/12/16 07:31 97.5 79 18 161/83 94 10/11/16 22:05 21 10/09/16 20:11 Room Air Intake and Output 10/11/16 10/11/16 10/12/16 15:00 23:00 07:00 Intake Total 110 ml 1080 ml 320 ml Balance 110 ml 1080 ml 320 ml NAD/A&Ox4 OP clear JVD not elevated RRR no m/g/r CTA b, no wheezing audible Obese, NT, ND, +BS, No c/c/trace LE edema b Results/Medications Result Diagram: 10/11/1643410/11/16 043 Medications Current Medications Atorvastatin Calcium (Lipitor) 10 mg HS PO Last administered on 10/11/16 22:05 ; Admin Dose 10 MG; Start 10/06/16 at 21:00 Calcium Carbonate (Oyster Shell Calcium) 1.25 gm BID PO Last administered on 22:06; Admin Dose 1.25 GM; Start 10/06/16 at 21:00 Magnesium Chloride (Mag 64) 64 mg TID PO Last administered on 10/11/16 22:05; Admin Dose 64 MG; Start 10/06/16 at 15:00 Metoprolol Succinate (Toprol Xl) 50 mg BID PO Last administered on 10/11/16 22 :06; Admin Dose 50 MG; Start 10/06/16 at 13:00 Pantoprazole (Protonix Tab) 40 mg DAILY@06 PO Last administered on 10/12/16 05 :35; Admin Dose 40 MG; Start 10/06/16 at 13:00 Cholecalciferol 2000 unit 2,000 unit DAILY PO Last administered on 10/11/16 08 :51; Admin Dose 2,000 UNIT; Start 10/06/16 at 13:00 Sodium Chloride (NS) 1,000 ml @ 20 mls/hr Q24H IV Last administered on 04:36; Admin Dose 20 MLS/HR; Start 10/06/16 at 13:14 Ondansetron HCl (Zofran Inj) 4 mg Q6H PRN IV NAUSEA AND/OR VOMITING; Start at 13:30 Acetaminophen (Tylenol Tab) 650 mg Q6H PRN PO PAIN LEVEL 1-3 OR FEVER Last administered on 10/11/16 16:22; Admin Dose 650 MG; Start 10/06/16 at 13:30 Acetaminophen/ Hydrocodone Bitart ([place] (5/325)) 1 tab Q6H PRN PO MODERATE PAIN LEVEL 4-6 Last administered on 10/08/16 05:52; Admin Dose 1 TAB; Start at 13:30 Acetaminophen/ Hydrocodone Bitart ([place] (5/325)) 2 tab Q6H PRN PO SEVERE PAIN LEVEL 7-10 Last administered on 10/08/16 16:52; Admin Dose 2 TAB; Start at 13:30 Docusate Sodium (Colace) 100 mg Q12H PRN PO CONSTIPATION; Start 10/06/16 at 13: 30 Magnesium Hydroxide (Milk Of Mag) 30 ml DAILY PRN PO CONSTIPATION; Start at 13:30 Zolpidem Tartrate (Ambien) 5 mg QHS PRN PO SLEEP; Start 10/06/16 at 13:30 Epoetin Darvin (Epogen (Esrd)) 10,000 units TuThSa@17 SC Last administered on 18:44; Admin Dose 10,000 UNITS; Start 10/07/16 at 17:00 Mometasone Furoate (Asmanex) 1 puff BID INH Last administered on 10/11/16 22: 05; Admin Dose 1 PUFF; Start 10/07/16 at 11:30 Nystatin (Nystatin Powder) 1 applic DAILY TOP Last administered on 10/11/16 08 :52; Admin Dose 1 APPLIC; Start 10/07/16 at 12:30 Cyanocobalamin (Vitamin B12) 1,000 mcg DAILY PO Last administered on 10/11/16 08:51; Admin Dose 1,000 MCG; Start 10/08/16 at 09:00 Apixaban (Eliquis) 5 mg BID PO Last administered on 10/11/16 22:06; Admin Dose 5 MG; Start 10/08/16 at 09:00 Colchicine (Colchicine) 0.6 mg BID PO Last administered on 10/11/16 22:06; Admin Dose 0.6 MG; Start 10/09/16 at 21:00 Folic Acid (Folic Acid) 1 mg DAILY PO Last administered on 10/11/16 08:51; Admin Dose 1 MG; Start 10/10/16 at 11:00 Assessment/Plan Problems: (1) Pneumonia (2) Acute renal failure (3) DVT (deep venous thrombosis) (4) Peripheral edema (5) Symptomatic anemia Additional Assessment/Plan 1. Anemia: Mild iron def and b12 def. No signs of pernicious anemia. S/p 2upRBC on 10/09. No signs of hemolysis or myeloma. S/p IV iron and B12 IM. Hb stable yesterday. Check cbc in am. 2. DVT: On Eliquis 5mg bid. Consider switching dose to 2.5mg bid if Cr goes over 1.5. 3. PNA: per primary team 4. ARF: monitor creatinine BUTCH HOROWITZ Oct 12, 2016 08:00
[2016-10-12] MEDS: CHOLECALCIFEROL 2,000 UNIT CAP PO SCH (08:50)
[2016-10-12] MEDS: FOLIC ACID 1 MG TAB PO SCH (08:50)
[2016-10-12] MEDS: MAGNESIUM CHLORIDE (SR) 64 MG TAB PO SCH ×3 (08:50→21:07)
[2016-10-12] MEDS: CYANOCOBALAMIN 500 MCG TAB PO SCH (08:50)
[2016-10-12] MEDS: CALCIUM CARBONATE 1.25 GM TAB PO SCH ×2 (08:50→21:07)
[2016-10-12] MEDS: APIXABAN 5 MG TABLET PO SCH ×2 (08:50→21:07)
[2016-10-12] MEDS: COLCHICINE 0.6 MG TAB PO SCH ×2 (08:50→21:06)
[2016-10-12] MEDS: MOMETASONE 0.24 GM INHALER INH SCH ×2 (08:50→21:06)
[2016-10-12] MEDS: METOPROLOL (XL) 50 MG TAB PO SCH ×2 (08:51→21:07)
[2016-10-12] MEDS: NYSTATIN 30 GM POWDER BTL TOP SCH (08:51)
[2016-10-12] MEDS: ALBUTEROL/IPRATROPIUM (NEB) 3 ML AMP HHN PRN (09:08)
--- NOTE | 2016-10-12 12:04 | CONS ---
Date/Time of Note Date/Time of Note DATE: 10/12/16 TIME: 11:55 Consult Date/Type/Reason Admit Date/Time Oct 07, 2016 at 08:32 Initial Consult Date 10/07/16 Type of Consultation: Rheum Ordering Provider: JOSE LEVIN MD Subjective No swelling or pain at feet at present. No new complaints. Has received two days each of 20 mg Solumedrol bid and two days of qd. Last dose yesterday. Still on colchicine 0.6mg bid. Objective Aalert. Oriented. Skin without acute lesions. HEENT without acute lesions. Neck without JVD Chest Clear to ausc. Heart RRR Abd Soft. Ext No synovitis. No tenderness or warmth at feet. Vital Signs Date Time Temp Pulse Resp B/P Pulse Ox O2 Delivery O2 Flow Rate FiO2 10/12/16 09:09 88 20 94 21 10/12/16 07:31 97.5 161/83 10/09/16 20:11 Room Air Intake and Output 10/11/16 10/11/16 10/12/16 15:00 23:00 07:00 Intake Total 110 ml 1080 ml 320 ml Balance 110 ml 1080 ml 320 ml Results/Medications Result Diagram: 10/11/16 0435 10/11/16 0435 Medications Current Medications Atorvastatin Calcium (Lipitor) 10 mg HS PO Last administered on 10/11/16 22:05 ; Admin Dose 10 MG; Start 10/06/16 at 21:00 Calcium Carbonate (Oyster Shell Calcium) 1.25 gm BID PO Last administered on 08:50; Admin Dose 1.25 GM; Start 10/06/16 at 21:00 Magnesium Chloride (Mag 64) 64 mg TID PO Last administered on 10/12/16 08:50; Admin Dose 64 MG; Start 10/06/16 at 15:00 Metoprolol Succinate (Toprol Xl) 50 mg BID PO Last administered on 10/12/16 08 :51; Admin Dose 50 MG; Start 10/06/16 at 13:00 Pantoprazole (Protonix Tab) 40 mg DAILY@06 PO Last administered on 10/12/16 05 :35; Admin Dose 40 MG; Start 10/06/16 at 13:00 Cholecalciferol 2000 unit 2,000 unit DAILY PO Last administered on 10/12/16 08 :50; Admin Dose 2,000 UNIT; Start 10/06/16 at 13:00 Sodium Chloride (NS) 1,000 ml @ 20 mls/hr Q24H IV Last administered on 04:36; Admin Dose 20 MLS/HR; Start 10/06/16 at 13:14 Ondansetron HCl (Zofran Inj) 4 mg Q6H PRN IV NAUSEA AND/OR VOMITING; Start at 13:30 Acetaminophen (Tylenol Tab) 650 mg Q6H PRN PO PAIN LEVEL 1-3 OR FEVER Last administered on 10/11/16 16:22; Admin Dose 650 MG; Start 10/06/16 at 13:30 Acetaminophen/ Hydrocodone Bitart ([place] (5/325)) 1 tab Q6H PRN PO MODERATE PAIN LEVEL 4-6 Last administered on 10/08/16 05:52; Admin Dose 1 TAB; Start at 13:30 Acetaminophen/ Hydrocodone Bitart ([place] (5/325)) 2 tab Q6H PRN PO SEVERE PAIN LEVEL 7-10 Last administered on 10/08/16 16:52; Admin Dose 2 TAB; Start at 13:30 Docusate Sodium (Colace) 100 mg Q12H PRN PO CONSTIPATION; Start 10/06/16 at 13: 30 Magnesium Hydroxide (Milk Of Mag) 30 ml DAILY PRN PO CONSTIPATION; Start at 13:30 Zolpidem Tartrate (Ambien) 5 mg QHS PRN PO SLEEP; Start 10/06/16 at 13:30 Epoetin Darvin (Epogen (Esrd)) 10,000 units TuThSa@17 SC Last administered on 18:44; Admin Dose 10,000 UNITS; Start 10/07/16 at 17:00 Mometasone Furoate (Asmanex) 1 puff BID INH Last administered on 10/12/16 08: 50; Admin Dose 1 PUFF; Start 10/07/16 at 11:30 Nystatin (Nystatin Powder) 1 applic DAILY TOP Last administered on 10/12/16 08 :51; Admin Dose 1 APPLIC; Start 10/07/16 at 12:30 Cyanocobalamin (Vitamin B12) 1,000 mcg DAILY PO Last administered on 10/12/16 08:50; Admin Dose 1,000 MCG; Start 10/08/16 at 09:00 Apixaban (Eliquis) 5 mg BID PO Last administered on 10/12/16 08:50; Admin Dose 5 MG; Start 10/08/16 at 09:00 Colchicine (Colchicine) 0.6 mg BID PO Last administered on 10/12/16 08:50; Admin Dose 0.6 MG; Start 10/09/16 at 21:00 Folic Acid (Folic Acid) 1 mg DAILY PO Last administered on 10/12/16 08:50; Admin Dose 1 MG; Start 10/10/16 at 11:00 Assessment/Plan Chief Complaint/Hosp Course Ass. 1. Acute gout feet. Improving with steroids. 2. Anemia,. Unclear etiol. Improved with transfusion. SPEP without monoclonal band. 3. Renal insuf.. Improved. Plan. Will not continue Solumedrol. Continue colchicine another couple of days. Would then discontinue it. Increase ambulation and at least sitting. Problems: ONEL CHAUDHARY MD Oct 12, 2016 12:04
[2016-10-12] MEDS: ACETAMINOPHEN 325 MG TAB PO PRN (18:26)
[2016-10-12 19:17] VITALS: BP 182/87; RESP 20
--- NOTE | 2016-10-12 19:46 | CONS ---
Date/Time of Note Date/Time of Note DATE: 10/12/16 TIME: 19:43 Assessment/Plan Assessment/Plan Additional Assessment/Plan 1. Gout in both feet L >> R , resolved 2. anemia improved after transfusion , stool is OB negative . GI has signed off . 3. DVT on Eliquis . 4. ARF improved off lasix, spot dose lasix 20mg iv once 5. continue rehab PT/OT for Home health evaluation 6. congestion and cough, check cxr, start impiric antibiotics, BNP in AM Coverage for Dr. Núñez Consultation Date/Type/Reason Admit Date/Time Oct 07, 2016 at 08:32 Initial Consult Date 10/07/16 Type of Consultation: Rheum Referring Provider: JOSE LEVIN MD 24 HR Interval Summary Free Text/Dictation pain of both toes improved, complains of cough and wheezing, duonebs improved sx fluid positive cxr will be done for cough Exam/Review of Systems Vital Signs Vitals Vital Signs Date Time Temp Pulse Resp B/P Pulse Ox O2 Delivery O2 Flow Rate FiO2 10/12/16 19:17 99.0 91 20 182/87 93 10/12/16 09:09 21 10/09/16 20:11 Room Air Intake and Output 10/11/16 10/11/16 10/12/16 14:59 22:59 06:59 Intake Total 110 ml 1080 ml 320 ml Balance 110 ml 1080 ml 320 ml Exam Constitutional: alert, oriented Head: normocephalic Eyes: EOMI, nl conjunctiva Neck: non-tender, supple Respiratory: congested cough, crackles/rales Cardiovascular: nl pulses, regular rate and rhythm Gastrointestinal: nl liver, spleen, soft Neurological: [employer] II-XII intact, nl mental status Results Result Diagram: 10/11/165 10/11/16434 Medications Medications Current Medications Atorvastatin Calcium (Lipitor) 10 mg HS PO Last administered on 10/11/16 22:05 ; Admin Dose 10 MG; Start 10/06/16 at 21:00 Calcium Carbonate (Oyster Shell Calcium) 1.25 gm BID PO Last administered on 08:50; Admin Dose 1.25 GM; Start 10/06/16 at 21:00 Magnesium Chloride (Mag 64) 64 mg TID PO Last administered on 10/12/16 13:17; Admin Dose 64 MG; Start 10/06/16 at 15:00 Metoprolol Succinate (Toprol Xl) 50 mg BID PO Last administered on 10/12/16 08 :51; Admin Dose 50 MG; Start 10/06/16 at 13:00 Pantoprazole (Protonix Tab) 40 mg DAILY@06 PO Last administered on 10/12/16 05 :35; Admin Dose 40 MG; Start 10/06/16 at 13:00 Cholecalciferol 2000 unit 2,000 unit DAILY PO Last administered on 10/12/16 08 :50; Admin Dose 2,000 UNIT; Start 10/06/16 at 13:00 Sodium Chloride (NS) 1,000 ml @ 20 mls/hr Q24H IV Last administered on 04:36; Admin Dose 20 MLS/HR; Start 10/06/16 at 13:14 Ondansetron HCl (Zofran Inj) 4 mg Q6H PRN IV NAUSEA AND/OR VOMITING; Start at 13:30 Acetaminophen (Tylenol Tab) 650 mg Q6H PRN PO PAIN LEVEL 1-3 OR FEVER Last administered on 10/12/16 18:26; Admin Dose 650 MG; Start 10/06/16 at 13:30 Acetaminophen/ Hydrocodone Bitart ([place] (5/325)) 1 tab Q6H PRN PO MODERATE PAIN LEVEL 4-6 Last administered on 10/08/16 05:52; Admin Dose 1 TAB; Start at 13:30 Acetaminophen/ Hydrocodone Bitart ([place] (5/325)) 2 tab Q6H PRN PO SEVERE PAIN LEVEL 7-10 Last administered on 10/08/16 16:52; Admin Dose 2 TAB; Start at 13:30 Docusate Sodium (Colace) 100 mg Q12H PRN PO CONSTIPATION; Start 10/06/16 at 13: 30 Magnesium Hydroxide (Milk Of Mag) 30 ml DAILY PRN PO CONSTIPATION; Start at 13:30 Zolpidem Tartrate (Ambien) 5 mg QHS PRN PO SLEEP; Start 10/06/16 at 13:30 Epoetin Darvin (Epogen (Esrd)) 10,000 units TuThSa@17 SC Last administered on 18:44; Admin Dose 10,000 UNITS; Start 10/07/16 at 17:00 Mometasone Furoate (Asmanex) 1 puff BID INH Last administered on 10/12/16 08: 50; Admin Dose 1 PUFF; Start 10/07/16 at 11:30 Nystatin (Nystatin Powder) 1 applic DAILY TOP Last administered on 10/12/16 08 :51; Admin Dose 1 APPLIC; Start 10/07/16 at 12:30 Cyanocobalamin (Vitamin B12) 1,000 mcg DAILY PO Last administered on 10/12/16 08:50; Admin Dose 1,000 MCG; Start 10/08/16 at 09:00 Apixaban (Eliquis) 5 mg BID PO Last administered on 10/12/16 08:50; Admin Dose 5 MG; Start 10/08/16 at 09:00 Colchicine (Colchicine) 0.6 mg BID PO Last administered on 10/12/16 08:50; Admin Dose 0.6 MG; Start 10/09/16 at 21:00 Folic Acid (Folic Acid) 1 mg DAILY PO Last administered on 10/12/16 08:50; Admin Dose 1 MG; Start 10/10/16 at 11:00 ADRIENNE GALLEGOS MD Oct 12, 2016 19:46
[2016-10-12] MEDS ORDERED: FUROSEMIDE 20 MG INJ IV ONE (20:00)
[2016-10-12 21:00] VITALS: BP 149/72
[2016-10-12] MEDS: ATORVASTATIN 10 MG TAB PO SCH (21:07)
[2016-10-13] MEDS: ACETAMINOPHEN 325 MG TAB PO PRN ×3 (00:26→18:54)
[2016-10-13] MEDS: HYDROCODONE/APAP (5/325) TAB PO PRN (04:02)
[2016-10-13 06:06] LABS: ADD SCAN DIFF NO
[2016-10-13 06:12] LABS: BASOPHILS % 0.4 % (0.0-2.0); EOSINOPHILS # 0.7 10^3/ul (0.0-0.5); EOSINOPHILS % 7.1 % (0.0-7.0); HEMATOCRIT 35.6 % (37.0-47.0); HEMOGLOBIN 11.5 g/dl (12.0-16.0); LYMPHOCYTES # 0.8 10^3/ul (0.8-2.9); LYMPHOCYTES % 9.1 % (15.0-51.0); MEAN CORPUSCULAR HEMOGLOBIN 29.6 pg (29.0-33.0); MEAN CORPUSCULAR HGB CONC 32.3 g/dl (32.0-37.0); MEAN CORPUSCULAR VOLUME 91.5 fl (82.0-101.0); MEAN PLATELET VOLUME 10.1 fl (7.4-10.4); MONOCYTE # 0.7 10^3/ul (0.3-0.9); MONOCYTES % 7.7 % (0.0-11.0); NEUTROPHIL # 6.7 10^3/ul (1.6-7.5); NEUTROPHILS % 73.7 % (39.0-77.0); NUCLEATED RED BLOOD CELLS # 0.1 10^3/ul (0.0-0.0); NUCLEATED RED BLOOD CELLS% 1.5 /100WBC (0.0-0.0); PLATELET COUNT 325 10^3/UL (140-415); RED BLOOD COUNT 3.89 10^6/ul (4.20-5.40); RED CELL DISTRIBUTION WIDTH 15.7 % (11.5-14.5); WHITE BLOOD COUNT 9.1 10^3/ul (4.8-10.8)
[2016-10-13] MEDS: PANTOPRAZOLE (EC) 40 MG TAB PO SCH (06:22)
[2016-10-13 06:26] LABS: ALBUMIN 3.1 g/dl (3.3-4.9)
[2016-10-13 06:27] LABS: POTASSIUM 4.1 mmol/L (3.5-5.1)
[2016-10-13 06:29] LABS: ALBUMIN/GLOBULIN RATIO 0.96; BILIRUBIN,INDIRECT 0.2 mg/dl (0-1.1); BILIRUBIN,TOTAL 0.2 mg/dl (0.2-1.3); CALCIUM 8.3 mg/dl (8.4-10.2); CREATININE 1.1 mg/dl (0.44-1.00); TOTAL PROTEIN 6.3 g/dl (6.1-8.1)
[2016-10-13 06:30] LABS: MAGNESIUM 1.3 mg/dl (1.7-2.5)
[2016-10-13 07:26] VITALS: BP 161/101; RESP 18
--- NOTE | 2016-10-13 08:25 | PN ---
Date/Time of Note Date/Time of Note DATE: 10/13/16 TIME: 08:20 Assessment/Plan VTE Prophylaxis VTE Prophylaxis Intervention: other Lines/Catheters IV Catheter Type (from Nrs): Peripheral IV Urinary Cath still in place: No Assessment/Plan Assessment/Plan 1. Gout has resolved 2. Anemia is stable, will dc procrit, reviewed with hematology, for now observe without bone marrow, will need to follow up sed and crp as I dont think sec to gout or recent dvt 3. Mild wheezing without PE, will treat symptomatically as no pe or pneumonia. 4. BP is sl inc, will resume ARB/HCT 5. I asked case management to see and hopeful dc tomm Subjective 24 Hr Interval Summary Respiratory: shortness of breath (occ and slight wheeze) Cardiovascular: No chest pain Gastrointestinal: no complaints Genitourinary: no complaints Musculoskeletal: other (no pain in her feet bilateral) Exam/Review of Systems Vital Signs Vitals Vital Signs Date Time Temp Pulse Resp B/P Pulse Ox O2 Delivery O2 Flow Rate FiO2 10/13/16 07:26 97.6 89 18 161/101 93 10/12/16 09:09 21 10/09/16 20:11 Room Air Intake and Output 10/12/16 10/12/16 10/13/16 15:00 23:00 07:00 Intake Total 460 ml 700 ml 200 ml Balance 460 ml 700 ml 200 ml Exam Neck: No jvd Respiratory: clear to auscultation Cardiovascular: regular rate and rhythm Gastrointestinal: soft Extremities: No edema (and no calf tend, no redness or swelling in her feet bilat) Results Result Diagram: 10/13/16 0500 10/13/16 0500 Results 24 hrs Laboratory Tests Test 10/13/16 05:00 Alanine Aminotransferase (ALT/SGPT) 34 Albumin 3.1 L Albumin/Globulin Ratio 0.96 Alkaline Phosphatase 114 Anion Gap 13 Aspartate Amino Transf (AST/SGOT) 20 B-Type Natriuretic Peptide 3780 H Basophils # 0.0 Basophils % 0.4 Blood Urea Nitrogen 24 H Calcium Level 8.3 L Carbon Dioxide Level 27 Chloride Level 103 Creatinine 1.10 H Direct Bilirubin 0.00 Eosinophils # 0.7 H Eosinophils % 7.1 H Globulin 3.20 Glucose Level 129 Hematocrit 35.6 L Hemoglobin 11.5 L Indirect Bilirubin 0.2 Lymphocytes # 0.8 Lymphocytes % 9.1 L Magnesium Level 1.3 L Mean Corpuscular Hemoglobin 29.6 Mean Corpuscular Hemoglobin Concent 32.3 Mean Corpuscular Volume 91.5 Mean Platelet Volume 10.1 Monocytes # 0.7 Monocytes % 7.7 Neutrophils # 6.7 Neutrophils % 73.7 Nucleated Red Blood Cells # 0.1 H Nucleated Red Blood Cells % 1.5 H Platelet Count 325 Potassium Level 4.1 Red Blood Count 3.89 L Red Cell Distribution Width 15.7 H Sodium Level 139 Total Bilirubin 0.2 Total Protein 6.3 Uric Acid 8.1 H White Blood Count 9.1 # Medications Medications Current Medications Atorvastatin Calcium (Lipitor) 10 mg HS PO Last administered on 10/12/16 21:07 ; Admin Dose 10 MG; Start 10/06/16 at 21:00 Calcium Carbonate (Oyster Shell Calcium) 1.25 gm BID PO Last administered on 21:07; Admin Dose 1.25 GM; Start 10/06/16 at 21:00 Magnesium Chloride (Mag 64) 64 mg TID PO Last administered on 10/12/16 21:07; Admin Dose 64 MG; Start 10/06/16 at 15:00 Metoprolol Succinate (Toprol Xl) 50 mg BID PO Last administered on 10/12/16 21 :07; Admin Dose 50 MG; Start 10/06/16 at 13:00 Pantoprazole (Protonix Tab) 40 mg DAILY@06 PO Last administered on 10/13/16 06 :22; Admin Dose 40 MG; Start 10/06/16 at 13:00 Cholecalciferol 2000 unit 2,000 unit DAILY PO Last administered on 10/12/16 08 :50; Admin Dose 2,000 UNIT; Start 10/06/16 at 13:00 Sodium Chloride (NS) 1,000 ml @ 20 mls/hr Q24H IV Last administered on 04:36; Admin Dose 20 MLS/HR; Start 10/06/16 at 13:14 Ondansetron HCl (Zofran Inj) 4 mg Q6H PRN IV NAUSEA AND/OR VOMITING; Start at 13:30 Acetaminophen (Tylenol Tab) 650 mg Q6H PRN PO PAIN LEVEL 1-3 OR FEVER Last administered on 10/13/16 00:26; Admin Dose 650 MG; Start 10/06/16 at 13:30 Acetaminophen/ Hydrocodone Bitart ([place] (5/325)) 1 tab Q6H PRN PO MODERATE PAIN LEVEL 4-6 Last administered on 10/13/16 04:02; Admin Dose 1 TAB; Start at 13:30 Acetaminophen/ Hydrocodone Bitart ([place] (5/325)) 2 tab Q6H PRN PO SEVERE PAIN LEVEL 7-10 Last administered on 10/08/16 16:52; Admin Dose 2 TAB; Start at 13:30 Docusate Sodium (Colace) 100 mg Q12H PRN PO CONSTIPATION; Start 10/06/16 at 13: 30 Magnesium Hydroxide (Milk Of Mag) 30 ml DAILY PRN PO CONSTIPATION; Start at 13:30 Zolpidem Tartrate (Ambien) 5 mg QHS PRN PO SLEEP; Start 10/06/16 at 13:30 Epoetin Darvin (Epogen (Esrd)) 10,000 units TuThSa@17 SC Last administered on 18:44; Admin Dose 10,000 UNITS; Start 10/07/16 at 17:00 Mometasone Furoate (Asmanex) 1 puff BID INH Last administered on 10/12/16 21: 06; Admin Dose 1 PUFF; Start 10/07/16 at 11:30 Nystatin (Nystatin Powder) 1 applic DAILY TOP Last administered on 10/12/16 08 :51; Admin Dose 1 APPLIC; Start 10/07/16 at 12:30 Cyanocobalamin (Vitamin B12) 1,000 mcg DAILY PO Last administered on 10/12/16 08:50; Admin Dose 1,000 MCG; Start 10/08/16 at 09:00 Apixaban (Eliquis) 5 mg BID PO Last administered on 10/12/16 21:07; Admin Dose 5 MG; Start 10/08/16 at 09:00 Colchicine (Colchicine) 0.6 mg BID PO Last administered on 10/12/16 21:06; Admin Dose 0.6 MG; Start 10/09/16 at 21:00 Folic Acid (Folic Acid) 1 mg DAILY PO Last administered on 10/12/16 08:50; Admin Dose 1 MG; Start 10/10/16 at 11:00 JOSE LEVIN MD Oct 13, 2016 08:25
[2016-10-13] MEDS: APIXABAN 5 MG TABLET PO SCH ×2 (08:27→21:22)
[2016-10-13] MEDS: CHOLECALCIFEROL 2,000 UNIT CAP PO SCH (08:27)
[2016-10-13] MEDS: COLCHICINE 0.6 MG TAB PO SCH ×2 (08:28→21:22)
[2016-10-13] MEDS: CALCIUM CARBONATE 1.25 GM TAB PO SCH ×2 (08:28→21:22)
[2016-10-13] MEDS: FOLIC ACID 1 MG TAB PO SCH (08:28)
[2016-10-13] MEDS: MAGNESIUM CHLORIDE (SR) 64 MG TAB PO SCH ×3 (08:28→21:22)
[2016-10-13] MEDS: METOPROLOL (XL) 50 MG TAB PO SCH ×2 (08:28→21:23)
[2016-10-13] MEDS: CYANOCOBALAMIN 500 MCG TAB PO SCH (08:28)
[2016-10-13] MEDS: LEVOTHYROXINE 112 MCG TAB PO SCH ×2 (08:28→08:44)
[2016-10-13] MEDS: NYSTATIN 30 GM POWDER BTL TOP SCH (08:29)
[2016-10-13] MEDS: VALSARTAN 160 MG TAB PO SCH (08:44)
[2016-10-13] MEDS ORDERED: HYDROCHLOROTHIAZIDE 25 MG TAB PO SCH (09:00)
[2016-10-13] MEDS: SALMETEROL/FLUTICASONE 250/50 INHA INH SCH ×2 (09:22→21:23)
[2016-10-13] MEDS ORDERED: MAGNESIUM SULFATE 3 GM in SOD CHLORIDE 0.9% 100 ML IVPB ONE (09:30)
--- NOTE | 2016-10-13 11:50 | PN ---
DATE: 10/13/2016 HEMATOLOGY AND ONCOLOGY PROGRESS NOTE SUBJECTIVE: The patient states she is feeling better. Does not complain of shortness of breath. N o nausea, vomiting, or abdominal pain. OBJECTIVE: VITAL SIGNS: Temperature 97.6, pulse 90 per minute and regular, respirations 18, blood pressure 160 /100, and pulse oximetry is 93% on room air. SKIN: Scattered ecchymosis, no petechiae or rashes. HEENT: No mucosal lesions. No scleral icterus. NECK: Supple, no jugular venous distention or thyroid enlargement. CHEST: Clear to auscultation and percussion. No rhonchi, wheezes, rales, or rubs. NODES: No palpable lymphadenopathy in the lymph node bearing area. ABDOMEN: Soft, no masses, no ascites. EXTREMITIES: No clubbing, no edema or cyanosis. No palpable cords or Homans sign. NEUROLOGIC: Normal. LABORATORY DATA: White count today is 9100, hemoglobin 11.5, hematocrit 35.6, and platelet count 32 5,000. Creatinine 1.1, BUN 24. Peripheral blood flow cytometry does not demonstrate any "diagnostic phenotypic abnormalities." ASSESSMENT: Anemia, partially corrected. PLAN: No specific etiology could be found for the patient's anemia. Although there were some atypi marty lymphocytes seen on review of the peripheral smear, flow cytometry does not verify any abnormali ties. At this time, I would monitor the patient as an outpatient. Should she become anemic again, it may be necessary to perform a bone marrow aspiration and biopsy. Dictated By: DOREEN LANE MD SR/NTS Conf#: [id number] DID#: [id number]
--- NOTE | 2016-10-13 13:40 | CONS ---
Date/Time of Note Date/Time of Note DATE: 10/13/16 TIME: 13:36 Consult Date/Type/Reason Admit Date/Time Oct 07, 2016 at 08:32 Initial Consult Date 10/07/16 Type of Consultation: Rheum Ordering Provider: JOSE LEVIN MD Subjective Continues without pain at feet. Able to weight bear. Objective Alert, oriented Skin without acut lesions. Neck without JVD Chest Clear Heart RRR Abd. Soft Ext. No synovitis. No foot tenderness Vital Signs Date Time Temp Pulse Resp B/P Pulse Ox O2 Delivery O2 Flow Rate FiO2 10/13/16 07:26 97.6 89 18 161/101 93 10/12/16 09:09 21 10/09/16 20:11 Room Air Intake and Output 10/12/16 10/12/16 10/13/16 15:00 23:00 07:00 Intake Total 460 ml 700 ml 200 ml Balance 460 ml 700 ml 200 ml Results/Medications Result Diagram: 10/13/16 0500 10/13/16 0500 Results 24 hrs Laboratory Tests Test 10/13/16 05:00 Alanine Aminotransferase (ALT/SGPT) 34 Albumin 3.1 L Albumin/Globulin Ratio 0.96 Alkaline Phosphatase 114 Anion Gap 13 Aspartate Amino Transf (AST/SGOT) 20 B-Type Natriuretic Peptide 3780 H Basophils # 0.0 Basophils % 0.4 Blood Urea Nitrogen 24 H Calcium Level 8.3 L Carbon Dioxide Level 27 Chloride Level 103 Creatinine 1.10 H Direct Bilirubin 0.00 Eosinophils # 0.7 H Eosinophils % 7.1 H Globulin 3.20 Glucose Level 129 Hematocrit 35.6 L Hemoglobin 11.5 L Indirect Bilirubin 0.2 Lymphocytes # 0.8 Lymphocytes % 9.1 L Magnesium Level 1.3 L Mean Corpuscular Hemoglobin 29.6 Mean Corpuscular Hemoglobin Concent 32.3 Mean Corpuscular Volume 91.5 Mean Platelet Volume 10.1 Monocytes # 0.7 Monocytes % 7.7 Neutrophils # 6.7 Neutrophils % 73.7 Nucleated Red Blood Cells # 0.1 H Nucleated Red Blood Cells % 1.5 H Platelet Count 325 Potassium Level 4.1 Red Blood Count 3.89 L Red Cell Distribution Width 15.7 H Sodium Level 139 Total Bilirubin 0.2 Total Protein 6.3 Uric Acid 8.1 H White Blood Count 9.1 # Medications Current Medications Atorvastatin Calcium (Lipitor) 10 mg HS PO Last administered on 3/19/17at 21:07 ; Admin Dose 10 MG; Start 10/06/16 at 21:00 Calcium Carbonate (Oyster Shell Calcium) 1.25 gm BID PO Last administered on 08:28; Admin Dose 1.25 GM; Start 10/06/16 at 21:00 Magnesium Chloride (Mag 64) 64 mg TID PO Last administered on 10/13/16 12:58; Admin Dose 64 MG; Start 10/06/16 at 15:00 Metoprolol Succinate (Toprol Xl) 50 mg BID PO Last administered on 10/13/16 08 :28; Admin Dose 50 MG; Start 10/06/16 at 13:00 Pantoprazole (Protonix Tab) 40 mg DAILY@06 PO Last administered on 10/13/16 06 :22; Admin Dose 40 MG; Start 10/06/16 at 13:00 Cholecalciferol (Vitamin D) 2,000 unit DAILY PO Last administered on 10/13/16 08:27; Admin Dose 2,000 UNIT; Start 10/06/16 at 13:00 Ondansetron HCl (Zofran Inj) 4 mg Q6H PRN IV NAUSEA AND/OR VOMITING; Start at 13:30 Acetaminophen (Tylenol Tab) 650 mg Q6H PRN PO PAIN LEVEL 1-3 OR FEVER Last administered on 10/13/16 08:44; Admin Dose 650 MG; Start 10/06/16 at 13:30 Acetaminophen/ Hydrocodone Bitart ([place] (5/325)) 1 tab Q6H PRN PO MODERATE PAIN LEVEL 4-6 Last administered on 10/13/16 04:02; Admin Dose 1 TAB; Start at 13:30 Acetaminophen/ Hydrocodone Bitart ([place] (5/325)) 2 tab Q6H PRN PO SEVERE PAIN LEVEL 7-10 Last administered on 10/08/16 16:52; Admin Dose 2 TAB; Start at 13:30 Docusate Sodium (Colace) 100 mg Q12H PRN PO CONSTIPATION; Start 10/06/16 at 13: 30 Magnesium Hydroxide (Milk Of Mag) 30 ml DAILY PRN PO CONSTIPATION; Start at 13:30 Zolpidem Tartrate (Ambien) 5 mg QHS PRN PO SLEEP; Start 10/06/16 at 13:30 Nystatin (Nystatin Powder) 1 applic DAILY TOP Last administered on 10/13/16 08 :29; Admin Dose 1 APPLIC; Start 10/07/16 at 12:30 Cyanocobalamin (Vitamin B12) 1,000 mcg DAILY PO Last administered on 10/13/16 08:28; Admin Dose 1,000 MCG; Start 10/08/16 at 09:00 Apixaban (Eliquis) 5 mg BID PO Last administered on 10/13/16 08:27; Admin Dose 5 MG; Start 10/08/16 at 09:00 Colchicine (Colchicine) 0.6 mg BID PO Last administered on 10/13/16 08:28; Admin Dose 0.6 MG; Start 10/09/16 at 21:00 Folic Acid (Folic Acid) 1 mg DAILY PO Last administered on 10/13/16 08:28; Admin Dose 1 MG; Start 10/10/16 at 11:00 Valsartan (Diovan) 160 mg DAILY PO Last administered on 10/13/16 08:44; Admin Dose 160 MG; Start 10/13/16 at 09:00 Hydrochlorothiazide (Hydrochlorothiazide) 25 mg DAILY PO Last administered on 08:44; Admin Dose 25 MG; Start 10/13/16 at 09:00 Salmeterol Xinafoate/ Fluticasone (Advair 250/50 Diskus) 1 inh BID INH Last administered on 10/13/16 09:22; Admin Dose 1 INH; Start 10/13/16 at 09:30 Assessment/Plan Chief Complaint/Hosp Course Ass. 1. Acute gout feet. Resolved 2. Anemia,. Unclear etiol. Improved with transfusion. SPEP without monoclonal band. 3. Renal insuf.. Improved. 4. Hyperuricemia Plan. Continue off steroids. Continue colchicine another couple of days. Would then discontinue it. Increase ambulation and at least sitting. Would not specifically treat the hyperuricemia at present. Problems: ONEL CHAUDHARY MD Oct 13, 2016 13:39
[2016-10-13 20:46] VITALS: BP 139/84; RESP 20
[2016-10-13] MEDS: ATORVASTATIN 10 MG TAB PO SCH (21:22)
[2016-10-14 05:34] LABS: ADD SCAN DIFF NO
[2016-10-14] MEDS: PANTOPRAZOLE (EC) 40 MG TAB PO SCH (06:06)
[2016-10-14 06:10] LABS: BASOPHILS % 0.3 % (0.0-2.0); EOSINOPHILS # 0.4 10^3/ul (0.0-0.5); EOSINOPHILS % 6.9 % (0.0-7.0); HEMATOCRIT 36.1 % (37.0-47.0); HEMOGLOBIN 11.6 g/dl (12.0-16.0); LYMPHOCYTES # 0.7 10^3/ul (0.8-2.9); MEAN CORPUSCULAR HEMOGLOBIN 29.7 pg (29.0-33.0); MEAN CORPUSCULAR HGB CONC 32.1 g/dl (32.0-37.0); MEAN CORPUSCULAR VOLUME 92.6 fl (82.0-101.0); MEAN PLATELET VOLUME 10.2 fl (7.4-10.4); MONOCYTE # 0.5 10^3/ul (0.3-0.9); MONOCYTES % 7.8 % (0.0-11.0); NEUTROPHIL # 4.7 10^3/ul (1.6-7.5); NEUTROPHILS % 72.9 % (39.0-77.0); NUCLEATED RED BLOOD CELLS% 0.5 /100WBC (0.0-0.0); PLATELET COUNT 302 10^3/UL (140-415); RED CELL DISTRIBUTION WIDTH 16.1 % (11.5-14.5); WHITE BLOOD COUNT 6.4 10^3/ul (4.8-10.8)
[2016-10-14 06:33] LABS: POTASSIUM 4.1 mmol/L (3.5-5.1)
[2016-10-14 06:35] LABS: CREATININE 1.08 mg/dl (0.44-1.00)
[2016-10-14 06:36] LABS: CALCIUM 8.2 mg/dl (8.4-10.2); PHOSPHORUS 2.6 mg/dl (2.5-4.9)
--- NOTE | 2016-10-14 07:45 | PN ---
Date/Time of Note Date/Time of Note DATE: 10/14/16 TIME: 07:43 Assessment/Plan VTE Prophylaxis VTE Prophylaxis Intervention: other Lines/Catheters IV Catheter Type (from Nrsg): Peripheral IV Urinary Cath still in place: No Assessment/Plan Assessment/Plan 1. Anemia, stable 2. BP control improved 3. Edema improved, still mild vol overload without chf 4. DVT on eliquis 5. In need of more PT, pt agrees to go to [facility] for the same Subjective 24 Hr Interval Summary Respiratory: No cough (but sl wheeze) Cardiovascular: No chest pain Genitourinary: no complaints Musculoskeletal: no complaints Exam/Review of Systems Vital Signs Vitals Vital Signs Date Time Temp Pulse Resp B/P Pulse Ox O2 Delivery O2 Flow Rate FiO2 10/13/16 20:46 98.3 90 20 139/84 95 10/12/16 09:09 21 Intake and Output 10/13/16 10/13/16 10/14/16 15:00 23:00 07:00 Intake Total 300 ml 1106 ml 200 ml Balance 300 ml 1106 ml 200 ml Exam Neck: No jvd Respiratory: diminished breath sounds (and mild exp wheeze anterior lung schuster ) Cardiovascular: regular rate and rhythm Gastrointestinal: soft Extremities: edema (legs but trace-1+ sacral edema) Results Result Diagram: 10/14/16 0456 10/14/16 0456 Results 24 hrs Laboratory Tests Test 10/14/16 04:56 Anion Gap 12 Basophils # 0.0 Basophils % 0.3 Blood Urea Nitrogen 24 H Calcium Level 8.2 L Carbon Dioxide Level 28 Chloride Level 103 Creatinine 1.08 H Eosinophils # 0.4 Eosinophils % 6.9 Glucose Level 112 Hematocrit 36.1 L Hemoglobin 11.6 L Lymphocytes # 0.7 L Lymphocytes % 11.0 L Magnesium Level 2.0 Mean Corpuscular Hemoglobin 29.7 Mean Corpuscular Hemoglobin Concent 32.1 Mean Corpuscular Volume 92.6 Mean Platelet Volume 10.2 Monocytes # 0.5 Monocytes % 7.8 Neutrophils # 4.7 Neutrophils % 72.9 Nucleated Red Blood Cells # 0.0 Nucleated Red Blood Cells % 0.5 H Phosphorus Level 2.6 Platelet Count 302 Potassium Level 4.1 Red Blood Count 3.90 L Red Cell Distribution Width 16.1 H Sodium Level 139 White Blood Count 6.4 # Medications Medications Current Medications Atorvastatin Calcium (Lipitor) 10 mg HS PO Last administered on 10/13/16 21:22 ; Admin Dose 10 MG; Start 10/06/16 at 21:00 Calcium Carbonate (Oyster Shell Calcium) 1.25 gm BID PO Last administered on 21:22; Admin Dose 1.25 GM; Start 10/06/16 at 21:00 Magnesium Chloride (Mag 64) 64 mg TID PO Last administered on 10/13/16 21:22; Admin Dose 64 MG; Start 10/06/16 at 15:00 Metoprolol Succinate (Toprol Xl) 50 mg BID PO Last administered on 10/13/16 21 :23; Admin Dose 50 MG; Start 10/06/16 at 13:00 Pantoprazole (Protonix Tab) 40 mg DAILY@06 PO Last administered on 10/14/16 06 :06; Admin Dose 40 MG; Start 10/06/16 at 13:00 Cholecalciferol (Vitamin D) 2,000 unit DAILY PO Last administered on 10/13/16 08:27; Admin Dose 2,000 UNIT; Start 10/06/16 at 13:00 Ondansetron HCl (Zofran Inj) 4 mg Q6H PRN IV NAUSEA AND/OR VOMITING; Start at 13:30 Acetaminophen (Tylenol Tab) 650 mg Q6H PRN PO PAIN LEVEL 1-3 OR FEVER Last administered on 10/13/16 18:54; Admin Dose 650 MG; Start 10/06/16 at 13:30 Acetaminophen/ Hydrocodone Bitart ([place] (5/325)) 1 tab Q6H PRN PO MODERATE PAIN LEVEL 4-6 Last administered on 10/13/16 04:02; Admin Dose 1 TAB; Start at 13:30 Acetaminophen/ Hydrocodone Bitart ([place] (5/325)) 2 tab Q6H PRN PO SEVERE PAIN LEVEL 7-10 Last administered on 10/08/16 16:52; Admin Dose 2 TAB; Start at 13:30 Docusate Sodium (Colace) 100 mg Q12H PRN PO CONSTIPATION; Start 10/06/16 at 13: 30 Magnesium Hydroxide (Milk Of Mag) 30 ml DAILY PRN PO CONSTIPATION; Start at 13:30 Zolpidem Tartrate (Ambien) 5 mg QHS PRN PO SLEEP; Start 10/06/16 at 13:30 Nystatin (Nystatin Powder) 1 applic DAILY TOP Last administered on 10/13/16 08 :29; Admin Dose 1 APPLIC; Start 10/07/16 at 12:30 Cyanocobalamin (Vitamin B12) 1,000 mcg DAILY PO Last administered on 10/13/16 08:28; Admin Dose 1,000 MCG; Start 10/08/16 at 09:00 Apixaban (Eliquis) 5 mg BID PO Last administered on 10/13/16 21:22; Admin Dose 5 MG; Start 10/08/16 at 09:00 Colchicine (Colchicine) 0.6 mg BID PO Last administered on 10/13/16 21:22; Admin Dose 0.6 MG; Start 10/09/16 at 21:00 Folic Acid (Folic Acid) 1 mg DAILY PO Last administered on 10/13/16 08:28; Admin Dose 1 MG; Start 10/10/16 at 11:00 Valsartan (Diovan) 160 mg DAILY PO Last administered on 10/13/16 08:44; Admin Dose 160 MG; Start 10/13/16 at 09:00 Hydrochlorothiazide (Hydrochlorothiazide) 25 mg DAILY PO Last administered on 08:44; Admin Dose 25 MG; Start 10/13/16 at 09:00 Salmeterol Xinafoate/ Fluticasone (Advair 250/50 Diskus) 1 inh BID INH Last administered on 10/13/16 21:23; Admin Dose 1 INH; Start 10/13/16 at 09:30 JOSE LEVIN MD Oct 14, 2016 07:45
[2016-10-14] MEDS ORDERED: CHOL20003 PO (07:50)
[2016-10-14] MEDS ORDERED: ZOLP5TAB PO (07:50)
[2016-10-14] MEDS ORDERED: DOCU-216 PO (07:50)
[2016-10-14] MEDS ORDERED: VALS160T26 PO (07:50)
[2016-10-14] MEDS ORDERED: COLC0.6T6 PO (07:50)
[2016-10-14] MEDS ORDERED: PANT40TA4 PO (07:50)
[2016-10-14] MEDS ORDERED: FOLI-49 PO (07:50)
[2016-10-14] MEDS ORDERED: ADV25050 INH (07:50)
[2016-10-14] MEDS ORDERED: CYAN500T46 PO (07:50)
[2016-10-14] MEDS ORDERED: FURO40TA4 PO (07:50)
[2016-10-14] MEDS ORDERED: SLOMAG PO (07:52)
[2016-10-14] MEDS: LEVOTHYROXINE 112 MCG TAB PO SCH (08:19)
[2016-10-14] MEDS: CYANOCOBALAMIN 500 MCG TAB PO SCH (08:19)
[2016-10-14] MEDS: FOLIC ACID 1 MG TAB PO SCH (08:19)
[2016-10-14] MEDS: MAGNESIUM CHLORIDE (SR) 64 MG TAB PO SCH ×2 (08:19→12:34)
[2016-10-14] MEDS: CALCIUM CARBONATE 1.25 GM TAB PO SCH (08:19)
[2016-10-14] MEDS: CHOLECALCIFEROL 2,000 UNIT CAP PO SCH (08:20)
[2016-10-14] MEDS: APIXABAN 5 MG TABLET PO SCH (08:20)
[2016-10-14] MEDS: METOPROLOL (XL) 50 MG TAB PO SCH (08:21)
[2016-10-14] MEDS: NYSTATIN 30 GM POWDER BTL TOP SCH (08:21)
[2016-10-14] MEDS: SALMETEROL/FLUTICASONE 250/50 INHA INH SCH (08:21)
[2016-10-14] MEDS: VALSARTAN 160 MG TAB PO SCH (08:21)
[2016-10-14 08:32] VITALS: BP 144/74; RESP 20
[2016-10-14] MEDS ORDERED: COLCHICINE 0.6 MG TAB PO SCH (09:00)
[2016-10-14] MEDS ORDERED: FUROSEMIDE 40 MG TAB PO SCH (09:00)
--- NOTE | 2016-10-14 13:28 | PN ---
Date/Time of Note Date/Time of Note DATE: 10/14/16 TIME: 13:26 Assessment/Plan VTE Prophylaxis VTE Prophylaxis Intervention: other (mobilize) Lines/Catheters IV Catheter Type (from Nrs): Peripheral IV Urinary Cath still in place: No Assessment/Plan Assessment/Plan Pt is going to be discharged and the CBC monitored. She will f/u with Drs. Chinchilla and Tan. Subjective 24 Hr Interval Summary Free Text/Dictation Pt feels much better. She is leaving the hospital this afternoon. Exam/Review of Systems Vital Signs Vitals Vital Signs Date Time Temp Pulse Resp B/P Pulse Ox O2 Delivery O2 Flow Rate FiO2 10/14/16 08:32 98.3 88 20 144/74 92 10/12/16 09:09 21 Intake and Output 10/13/16 10/13/16 10/14/16 15:00 23:00 07:00 Intake Total 300 ml 1106 ml 200 ml Balance 300 ml 1106 ml 200 ml Exam Constitutional: alert, oriented Psych: no complaints Head: normocephalic Eyes: nl conjunctiva ENMT: nl external ears & nose Neck: supple Respiratory: clear to auscultation Cardiovascular: regular rate and rhythm Gastrointestinal: soft Results Result Diagram: 10/14/16 0456 10/14/16 0456 Results 24 hrs Laboratory Tests Test 10/14/16 04:56 Anion Gap 12 Basophils # 0.0 Basophils % 0.3 Blood Urea Nitrogen 24 H Calcium Level 8.2 L Carbon Dioxide Level 28 Chloride Level 103 Creatinine 1.08 H Eosinophils # 0.4 Eosinophils % 6.9 Glucose Level 112 Hematocrit 36.1 L Hemoglobin 11.6 L Lymphocytes # 0.7 L Lymphocytes % 11.0 L Magnesium Level 2.0 Mean Corpuscular Hemoglobin 29.7 Mean Corpuscular Hemoglobin Concent 32.1 Mean Corpuscular Volume 92.6 Mean Platelet Volume 10.2 Monocytes # 0.5 Monocytes % 7.8 Neutrophils # 4.7 Neutrophils % 72.9 Nucleated Red Blood Cells # 0.0 Nucleated Red Blood Cells % 0.5 H Phosphorus Level 2.6 Platelet Count 302 Potassium Level 4.1 Red Blood Count 3.90 L Red Cell Distribution Width 16.1 H Sodium Level 139 White Blood Count 6.4 # Medications Medications Current Medications Atorvastatin Calcium (Lipitor) 10 mg HS PO Last administered on 10/13/16t 21:22 ; Admin Dose 10 MG; Start 10/06/16 at 21:00 Calcium Carbonate (Oyster Shell Calcium) 1.25 gm BID PO Last administered on 08:19; Admin Dose 1.25 GM; Start 10/06/16 at 21:00 Magnesium Chloride (Mag 64) 64 mg TID PO Last administered on 10/14/16 12:34; Admin Dose 64 MG; Start 10/06/16 at 15:00 Metoprolol Succinate (Toprol Xl) 50 mg BID PO Last administered on 10/14/16 08 :21; Admin Dose 50 MG; Start 10/06/16 at 13:00 Pantoprazole (Protonix Tab) 40 mg DAILY@06 PO Last administered on 10/14/16 06 :06; Admin Dose 40 MG; Start 10/06/16 at 13:00 Cholecalciferol (Vitamin D) 2,000 unit DAILY PO Last administered on 10/14/16 08:20; Admin Dose 2,000 UNIT; Start 10/06/16 at 13:00 Ondansetron HCl (Zofran Inj) 4 mg Q6H PRN IV NAUSEA AND/OR VOMITING; Start at 13:30 Acetaminophen (Tylenol Tab) 650 mg Q6H PRN PO PAIN LEVEL 1-3 OR FEVER Last administered on 10/13/16 18:54; Admin Dose 650 MG; Start 10/06/16 at 13:30 Acetaminophen/ Hydrocodone Bitart ([place] (5/325)) 1 tab Q6H PRN PO MODERATE PAIN LEVEL 4-6 Last administered on 10/13/16 04:02; Admin Dose 1 TAB; Start at 13:30 Acetaminophen/ Hydrocodone Bitart ([place] (5/325)) 2 tab Q6H PRN PO SEVERE PAIN LEVEL 7-10 Last administered on 10/08/16 16:52; Admin Dose 2 TAB; Start at 13:30 Docusate Sodium (Colace) 100 mg Q12H PRN PO CONSTIPATION; Start 10/06/16 at 13: 30 Magnesium Hydroxide (Milk Of Mag) 30 ml DAILY PRN PO CONSTIPATION; Start at 13:30 Zolpidem Tartrate (Ambien) 5 mg QHS PRN PO SLEEP; Start 10/06/16 at 13:30 Nystatin (Nystatin Powder) 1 applic DAILY TOP Last administered on 10/14/16 08 :21; Admin Dose 1 APPLIC; Start 10/07/16 at 12:30 Cyanocobalamin (Vitamin B12) 1,000 mcg DAILY PO Last administered on 10/14/16 08:19; Admin Dose 1,000 MCG; Start 10/08/16 at 09:00 Apixaban (Eliquis) 5 mg BID PO Last administered on 10/14/16 08:20; Admin Dose 5 MG; Start 10/08/16 at 09:00 Folic Acid (Folic Acid) 1 mg DAILY PO Last administered on 10/14/16 08:19; Admin Dose 1 MG; Start 10/10/16 at 11:00 Valsartan (Diovan) 160 mg DAILY PO Last administered on 10/14/16 08:21; Admin Dose 160 MG; Start 10/13/16 at 09:00 Salmeterol Xinafoate/ Fluticasone (Advair 250/50 Diskus) 1 inh BID INH Last administered on 10/14/16 08:21; Admin Dose 1 INH; Start 10/13/16 at 09:30 Colchicine (Colchicine) 0.6 mg DAILY PO Last administered on 10/14/16 08:20; Admin Dose 0.6 MG; Start 10/14/16 at 09:00 Furosemide (Lasix) 40 mg DAILY PO Last administered on 10/14/16 08:20; Admin Dose 40 MG; Start 10/14/16 at 09:00 JOSE FRITZ MD Oct 14, 2016 13:28
--- NOTE | 2016-10-20 11:36 | DS ---
DATE OF ADMISSION: 10/07/2016 DATE OF DISCHARGE: 10/14/2016 HISTORY OF PRESENT ILLNESS: This is an 86-year-old female admitted with persistent lower extremity edema, intermittent wheezing and anemia with history of a DVT involving the left popliteal vein. Th is was noted prior to admission with CT pulmonary angiogram revealing no evidence of pulmonary embol us and CT of the abdomen and pelvis was unrevealing as well without evidence of iron deficiency and evidence of mild renal insufficiency prior to admission. This is related to aggressive diuresis for treatment of her lower extremity edema. PHYSICAL EXAMINATION ON ADMISSION: VITAL SIGNS: BP 122/80, pulse 70, respirations were 20. HEENT: Eyes: Extraocular muscles were full. NECK: No JVD. LUNGS: Reduced breath sounds. HEART: Rhythm regular. ABDOMEN: No organomegaly. Liver was not enlarged. EXTREMITIES: Mild lower extremity edema. LABORATORY AND DIAGNOSTIC STUDIES: On admission, hematocrit was 27, white count 9600, platelet coun t 349,000, hematocrit fell to a low of 25. She was transfused 2 units of packed cells and hematocri t increased to 36.1, white count 6400. At the time of discharge, platelet count was 302,000, having received Procrit and IV iron as well. On admission, electrolytes were normal. BUN was 72, creatin ine 2.05. With hydration at the time of discharge, electrolytes were normal with BUN of 24 and crea tinine of 1.08. Liver tests were normal. B12 was normal. Iron saturation was low, ferritin was no rmal. Stool for occult blood was negative. Methylmalonic acid and homocysteine were elevated at 69 1 and 26.3 respectively. Folate was normal. TSH was normal. BNP was 3780. Quantitative immunoglo bulins revealed IgG 801, IgA 258, IgM was less than 25. Serum immunofixation revealed no monoclonal protein. Intrinsic factor blocking antibody was negative. Protime was 1.2, PTT was normal. IMAGING STUDIES: Revealed x-ray of the left foot was unrevealing. Chest x-ray: Borderline cardiom egaly. Ankle MRI (left) revealed marked attenuation of the posterior tibialis tendon. Otherwise, n o acute fracture. Moderate plantar fasciitis. Uric acid was 10.4 on 10/08/2016. HOSPITAL COURSE: Patient was seen in GI consultation by Dr. Ramirez, who felt that instrumentation, i. e., endo or colon, not warranted at this point, given advanced age and stools negative for occult bl ood. The patient was seen by Dr. Obando with respect to managing her acute gouty arthritis that in volved both feet that resolved with prednisone and colchicine. Patient was seen by Dr. Alli das in hopes of explaining her elevated sed rate and CRP. Cytometry revealed questionable abnormal lymphocytes but it was felt that at this point no bone marrow examination was warranted. Lymphoprol iferative disorder and/or myeloproliferative disorder was not revealed. The patient was also seen b y Dr. Kirill Burrell who felt that no intervention was needed with respect to her left foot pain as it was clear following admission that gouty arthritis was the culprit. This related to diuretic therap y. DISCHARGE DIAGNOSES: 1. Acute renal failure secondary to volume contraction, resolved. 2. Known deep vein thrombosis, to continue Eliquis b.i.d. 3. Anemia, cause unclear, resolved after transfusion. This will be followed and we will consider f aminah with hematology evaluation, given elevated CRP and sed rate. A low B12 level was noted and tarango pplemental oral B12 instituted. Plan to be discharged today. MEDICATIONS: To include: 1. Vitamin D3 2000 units per day. 2. Colchicine 0.6 mg daily. 3. Vitamin B12 1000 mcg daily. 4. Colace 100 mg per day. 5. Folic acid 1 mg per day. 6. Lasix 40 mg per day. 7. Magnesium chloride one b.i.d. 8. Protonix 40 mg per day. 8. Advair 1 inhalation b.i.d. 10. Valsartan 160 mg per day. 11. Ambien 5 mg per day. 12. Eliquis 5 mg per day. 13. Atorvastatin 10 mg per day. 14. Levothyroxine 112 mg per day. 15. Metoprolol 50 mg b.i.d. FOLLOWUP: She will be transferred to [facility]. DIET: No added salt. CONDITION: Stable. Dictated By: JOSE SCHERER/FRANCIE Conf#: [id number] DID#: [id number]
== END 2016-10-14 15:40 | DRG 683 ==
LOC: E/R 09:21 → INTOOBSV 11:43 → MS2 11:43 → OBSVTOIN 10-07 08:32
PROVIDERS: ADMIT Internal Medicine; ATTEND Internal Medicine
PROC: 30233N1 Transfusion of Nonautologous Red Blood Cells into Peripheral Vein, Percutaneous Approach (ICD-10-PCS; principal; 2016-10-09)
DX: N17.9 Acute kidney failure, unspecified (principal); I31.3 Pericardial effusion (noninflammatory); L89.152 Pressure ulcer of sacral region, stage 2; I82.492 Acute embolism and thrombosis of other specified deep vein of left lower extremity; M10.371 Gout due to renal impairment, right ankle and foot; M10.372 Gout due to renal impairment, left ankle and foot; D50.9 Iron deficiency anemia, unspecified; Z86.718 Personal history of other venous thrombosis and embolism; I25.10 Atherosclerotic heart disease of native coronary artery without angina pectoris; Z79.01 Long term (current) use of anticoagulants; Z85.3 Personal history of malignant neoplasm of breast; Z92.3 Personal history of irradiation; I10 Essential (primary) hypertension; E03.9 Hypothyroidism, unspecified; N14.1 Nephropathy induced by other drugs, medicaments and biological substances; T50.2X5A Adverse effect of carbonic-anhydrase inhibitors, benzothiadiazides and other diuretics, initial encounter; Z96.641 Presence of right artificial hip joint; R06.2 Wheezing; E87.70 Fluid overload, unspecified
CPT/HCPCS: 36415; 36430; 36600; 71010; 73721; 80048; 80053; 81001; 81003; 82270; 82607; 82728; 82746; 82784; 82803; 83010; 83090; 83540; 83690; 83735; 83880; 83921; 84100; 84134; 84155; 84165; 84443; 84484; 84560; 85025; 85610; 85651; 85730; 86140; 86320; 86340; 86644; 86850; 86900; 86901; 86920; 87040; 93005; 93306; 93922; 94640; 94664; 97110; 97116; 97162; 97530; 99217; J1940; G0378; J0886; J2916; J2920; J3475; J7030; P9016

== ENCOUNTER 2018-09-12 08:53 | Inpatient (IN) | payer MEDICARE, OTHER ==
[~2018-09-12] VITALS: Ht 167.6 cm; Wt 90.9 kg
[~2018-09-12 08:53] MED LIST changes: +ADV25050 INH; +APIX5TAB PO; -ASPI325T32 PO; -AZIT250T94 PO; -CALC1TAB98 PO; +CALC500T91 PO; +CHOL200073 PO; +COLC0.6T6 PO; +CYAN500T46 PO; +DOCU-216 PO; +FOLI-49 PO; +FURO40TA4 PO; +MAGN64TA10 PO; +METO-319 PO; -METO50TA16 PO; +PANT40TA4 PO; -SLOMAG PO; -VALS160T20 PO; +VALS160T27 PO; +ZOLP5TAB PO
[2018-09-12] MEDS ORDERED: METOPROLOL 5 MG INJ ONE (08:56)
[2018-09-12] MEDS ORDERED: METOPROLOL 5 MG INJ IV ONE (09:00)
[2018-09-12] MEDS ORDERED: PANT40TA3 PO (09:13)
[2018-09-12] MEDS ORDERED: LEVO112T42 PO (09:13)
[2018-09-12] MEDS ORDERED: MAGN400T28 PO (09:14)
[2018-09-12] MEDS ORDERED: CALC500T11 PO (09:14)
[2018-09-12] MEDS ORDERED: CYAN500T46 PO (09:15)
[2018-09-12] MEDS ORDERED: CHOL100062 PO (09:15)
[2018-09-12] MEDS ORDERED: APIX5TAB PO (09:16)
[2018-09-12] MEDS ORDERED: ALLO100T PO (09:16)
[2018-09-12] MEDS ORDERED: ATOR10TA65 PO (09:17)
[2018-09-12] MEDS ORDERED: METO-429 PO (09:19)
[2018-09-12] MEDS ORDERED: VALS160T20 PO (09:20)
[2018-09-12] MEDS ORDERED: FURO20TA3 PO (09:21)
[2018-09-12] MEDS ORDERED: ETOMIDATE 20 MG INJ IV ONE (09:30)
[2018-09-12] MEDS ORDERED: ONDANSETRON 4 MG INJ IV PRN (11:00)
[2018-09-12] MEDS ORDERED: ACETAMINOPHEN 325 MG TAB PO PRN (11:00)
--- NOTE | 2018-09-12 11:47 | ERD ---
ER Documentation Chief Complaint Chief Complaint PALPITATIONS. SVT 200'S HPI Patient is an 88-year-old female who presents with tachycardia. She was brought in by ambulance and had a complaint of palpitations. Her heart rate was in the 200s. She was given 6 mg then 12 mg of adenosine by paramedics without breaking the tachycardia. The patient is currently on Cipro for a UTI. She came from home. Her blood pressure was low initially. ROS All systems reviewed and are negative except as per history of present illness. Medications Home Meds Reported Medications Furosemide* (Furosemide*) 20 Mg Tablet, 20 MG PO DAILY, #60 TAB HOLD IF SBP BELOW 110 09/12/18 Valsartan* (Diovan*) 160 Mg Tablet, 160 MG PO DAILY, TAB HOLD IF SBP BELOW 110 09/12/18 Metoprolol Tartrate* (Lopressor*) 50 Mg Tab, 50 MG PO BID, #60 TAB HOLD IF SBP BELOW 110 09/12/18 Atorvastatin Calcium (Atorvastatin Calcium) 10 Mg Tablet, 10 MG PO QHS, #30 TAB 09/12/18 Allopurinol* (Allopurinol*) 100 Mg Tablet, 100 MG PO BID, TAB 09/12/18 Apixaban* (Eliquis*) 5 Mg Tablet, 5 MG PO BID, TAB 09/12/18 Cholecalciferol* (Vitamin D3*) 1,000 Unit Tablet, 1000 UNIT PO DAILY, TAB 09/12/18 Cyanocobalamin* (Vitamin B12*) 500 Mcg Tab, 1000 MCG PO DAILY, TAB 09/12/18 Magnesium Oxide* (Magnesium Oxide*) 400 Mg Tablet, 400 MG PO BID, TAB 09/12/18 Calcium Carbonate ([place]-500) 500 Mg Tablet, 500 MG PO BID, TAB 09/12/18 Pantoprazole* (Protonix*) 40 Mg Tablet.dr, 40 MG PO DAILY, TAB 09/12/18 Levothyroxine Sodium* (Levoxyl*) 112 Mcg Tablet, 112 MCG PO BEFORE BREAKFAST, #30 TAB 09/12/18 Discontinued Reported Medications Apixaban* (Eliquis*) 5 Mg Tablet, 5 MG PO BID, TAB 10/06/16 Calcium Carbonate ([id number]) 500 Mg Tablet, 500 MG PO BID, TAB 10/06/16 Metoprolol Succinate* (Toprol XL*) 50 Mg Tab.er.24h, 50 MG PO BID, TAB 03/21/14 Levothyroxine Sodium* (Synthroid*) 112 Mcg Tablet, 112 MCG PO AC BREAKFAST, TAB 03/21/14 Atorvastatin (Lipitor) 10 Mg Tablet, 10 MG PO HS 04/30/12 Discontinued Scripts Magnesium Chloride* (Mag 64*) 64 Mg Tabsr, 64 MG PO BID for 30 Days, TAB Prov:JOSE LEVIN MD 10/14/16 Zolpidem Tartrate (Ambien Lai) 5 Mg Tablet, 5 MG PO QHS PRN for SLEEP for 30 Days, TAB Prov:JOSE LEVIN MD 10/14/16 Valsartan (Valsartan) 160 Mg Tablet, 160 MG PO DAILY for 30 Days, TAB Prov:JOSE LEVIN MD 10/14/16 Salmeterol Xinaf/Fluticasone* (Advair*) 250-50 Diskus Inhaler, 1 INH INH BID for 30 Days Prov:JOSE LEVIN MD 10/14/16 Pantoprazole* (Pantoprazole*) 40 Mg Tablet.dr, 40 MG PO DAILY@06 for 30 Days Prov:JOSE LEVIN MD 10/14/16 Furosemide* (Furosemide*) 40 Mg Tablet, 40 MG PO DAILY for 30 Days, TAB Prov:JOSE LEVIN MD 10/14/16 Folic Acid* (Folic Acid*) 1 Mg Tablet, 1 MG PO DAILY for 30 Days, TAB Prov:JOSE LEVIN MD 10/14/16 Docusate Sodium (Dok) 100 Mg Capsule, 100 MG PO Q12H PRN for CONSTIPATION for 30 Days, CAP Prov:JOSE LEVIN MD 10/14/16 Cyanocobalamin* (Vitamin B12*) 500 Mcg Tab, 1000 MCG PO DAILY for 30 Days, TAB Prov:JOSE LEVIN MD 10/14/16 Colchicine* (Colcrys*) 0.6 Mg Tablet, 0.6 MG PO DAILY for 30 Days, TAB Prov:JOSE LEVIN MD 10/14/16 Cholecalciferol (Vitamin D3) (VITAMIN D-3) 2,000 Unit Capsule, 2000 UNIT PO DAILY for 30 Days, CAP Prov:JOSE LEVIN MD 10/14/16 Allergies Allergies: Coded Allergies: No Known Allergy (Unverified , 8/26/14) PMhx/Soc History of Surgery: Yes (LAP CHOLY , HERNIA REPAIN ) Anesthesia Reaction: No Hx Neurological Disorder: No Hx Respiratory Disorders: No Hx Cardiac Disorders: Yes (HTN , CHF) Hx Psychiatric Problems: No Hx Miscellaneous Medical Probl: Yes (LLE DVT, HTN, Dyslipidemia, hypothyroidism) Hx Alcohol Use: No Hx Substance Use: No Hx Tobacco Use: Yes Smoking Status: Former smoker FmHx Family History: No diabetes Physical Exam Vitals Vital Signs Date Temp Pulse Resp B/P (MAP) Pulse Ox O2 O2 Flow FiO2 Time Delivery Rate 09/12/18 88 17 141/100 100 Nasal 2.0 11:26 (114) Cannula 09/12/18 94 16 107/61 100 Nasal 2.0 09:36 (76) Cannula 09/12/18 4.0 09:27 09/12/18 97 25 137/68 100 Nasal 2.0 09:23 (91) Cannula 09/12/18 177 20 88/52 (64) 98 Nasal 09:19 Cannula 09/12/18 Nasal 2 09:18 Cannula 09/12/18 184 15 74/51 (59) 98 Nasal 4.0 09:04 Cannula 09/12/18 98.2 206 22 116/70 95 08:58 (85) Physical Exam Const: No acute distress Head: Atraumatic Eyes: Normal Conjunctiva ENT: Normal External Ears, Nose and Mouth. Neck: Full range of motion. No meningismus. Resp: Clear to auscultation bilaterally Cardio: Tachycardic rate without murmur Abd: Soft, non tender, non distended. Normal bowel sounds Skin: Pale skin Back: No midline or flank tenderness Ext: No cyanosis, or edema Neur: Awake and alert Psych: Normal Mood and Affect Result Diagram: 09/12/1859 09/12/1859 Results 24 hrs Laboratory Tests Test 09/12/18 09:58 09/12/18 09:59 Prothrombin Time 13.1 Sec Prothrombin Time Ratio 1.0 INR International Normalized Ratio 0.98 Activated Partial Thromboplast Time 28.4 Sec White Blood Count 7.2 10^3/ul Red Blood Count 3.35 10^6/ul Hemoglobin 10.1 g/dl Hematocrit 31.9 % Mean Corpuscular Volume 95.2 fl Mean Corpuscular Hemoglobin 30.1 pg Mean Corpuscular Hemoglobin Concent 31.7 g/dl Red Cell Distribution Width 14.8 % Platelet Count 244 10^3/UL Mean Platelet Volume 10.5 fl Immature Granulocytes % 0.300 % Neutrophils % 80.5 % Lymphocytes % 8.6 % Monocytes % 6.7 % Eosinophils % 3.5 % Basophils % 0.4 % Nucleated Red Blood Cells % 0.0 /100WBC Immature Granulocytes # 0.020 10^3/ul Neutrophils # 5.8 10^3/ul Lymphocytes # 0.6 10^3/ul Monocytes # 0.5 10^3/ul Eosinophils # 0.3 10^3/ul Basophils # 0.0 10^3/ul Nucleated Red Blood Cells # 0.0 10^3/ul Sodium Level 138 mmol/L Potassium Level 4.0 mmol/L Chloride Level 105 mmol/L Carbon Dioxide Level 26 mmol/L Anion Gap 7 Blood Urea Nitrogen 31 mg/dl Creatinine 1.22 mg/dl Est Glomerular Filtrat Rate mL/min mL/min Glucose Level 197 mg/dl Calcium Level 8.8 mg/dl Magnesium Level 1.5 mg/dl Total Bilirubin 0.2 mg/dl Direct Bilirubin 0.00 mg/dl Indirect Bilirubin 0.2 mg/dl Aspartate Amino Transf (AST/SGOT) 25 IU/L Alanine Aminotransferase (ALT/SGPT) 24 IU/L Alkaline Phosphatase 126 IU/L Creatine Kinase 52 IU/L Creatine Kinase Index 4.3 Creatinine Kinase MB (Mass) 2.22 ng/ml Troponin I 0.099 ng/ml Total Protein 6.3 g/dl Albumin 3.4 g/dl Globulin 2.90 g/dl Albumin/Globulin Ratio 1.17 Thyroid Stimulating Hormone (TSH) 1.900 MIU/L Free Thyroxine 1.57 ng/dl Current Medications Medications Dose Sig/Vee Start Time Status Last (Trade) Ordered Route PRN Stop Time Admin Dose Reason Admin Metoprolol 5 mg ONCE ONCE 09/12/18 DC 09/12/18 Tartrate IV 09:00 08:58 (Lopressor) 09/12/18 09:01 Etomidate 10 mg ONCE ONCE 09/12/18 DC 09/12/18 (Amidate) IV 09:30 09:22 09/12/18 09:31 Ondansetron 4 mg ER BRIDGE 09/12/18 HCl (Zofran PRN IV 11:00 Inj) NAUSEA/VOMITI 09/13/18 10:59 NG 650 mg ER BRIDGE 09/12/18 Acetaminophen PRN PO 11:00 (Tylenol .MILD PAIN 09/13/18 10:59 Tab) 1-3 OR TEMP Procedures/MDM EKG #1 read by me: Rate/Rhythm: SVT versus rapid A. fib at a rate of 200 Intervals: Normal Impression: SVT versus rapid A. fib EKG #2 read by me: Rate/Rhythm: Sinus rhythm Intervals: Normal Impression: Sinus rhythm without ischemia Procedural Sedation: Pre-assessment performed. See preceding complete history and physical for details. Time out performed. Paint And Table Edger, Continuous Pulse Ox. See sedation documentation for details. Medication(s): Etomidate 10 mg IV Complications: No hypoxic or apneic events Recovered without incident. Greater than 15 minutes of face to face time included in sedation and recovery. Cardioversion: Pre-assessment performed. See preceding complete history and physical for details. Time out performed. Paint And Table Edger, Continuous Pulse Ox. See sedation documentation for details. Technique: Biphasic Synchronized Cardioversion 200J: Successful Complications: No hypotensive events Critical Care: Time: 35 minutes Treatments/Evaluations: Close monitoring for dangerous arrhythmia and cardiovascular collapse, while treating with advance cardiac medications and techniques. Patient will be admitted to the care of Dr. Levin the primary doctor. I spoke with Dr. Vega who will do the admission. Departure Diagnosis: Primary Impression: Anemia Anemia type: unspecified type Qualified Codes: D64.9 - Anemia, unspecified Additional Impression: Tachycardia Condition: MANI Ayala MD Sep 12, 2018 11:47
[2018-09-12 14:47] VITALS: PULSE 89
[2018-09-12 15:27] VITALS: BP 148/83; PULSE 90; RESP 18
[2018-09-12] MEDS ORDERED: MAGNESIUM SULFATE 2 GM/50 ML 50 ML IVPB ONE (16:00)
[2018-09-12 16:25] VITALS: PULSE 91
[2018-09-12] MEDS: PANTOPRAZOLE (EC) 40 MG TAB PO SCH (16:33)
[2018-09-12 18:23] VITALS: Ht 167.6 cm; Wt 90.9 kg
[2018-09-12 19:47] VITALS: BP 142/65; PULSE 93; RESP 18
[2018-09-12 20:00] VITALS: PULSE 93
[2018-09-12] MEDS: ATORVASTATIN 10 MG TAB PO SCH (21:28)
[2018-09-12] MEDS: ALLOPURINOL 100 MG TAB PO SCH (21:29)
[2018-09-12] MEDS: APIXABAN 5 MG TABLET PO SCH (21:29)
[2018-09-12] MEDS: METOPROLOL 50 MG TAB PO SCH (21:29)
[2018-09-12] MEDS ORDERED: ASPIRIN 325 MG TAB PO ONE (22:00)
[2018-09-12 22:28] VITALS: PULSE 158
[2018-09-13] VITALS (12 sets, daily range): BP systolic 123–169; BP diastolic 61–95; PULSE 73–95; RESP 18–22
[2018-09-13] MEDS: ACETAMINOPHEN 325 MG TAB PO PRN (07:35)
[2018-09-13] MEDS: LEVOTHYROXINE 112 MCG TAB PO SCH (08:30)
[2018-09-13] MEDS: PANTOPRAZOLE (EC) 40 MG TAB PO SCH (08:30)
[2018-09-13] MEDS: APIXABAN 5 MG TABLET PO SCH ×2 (08:30→21:01)
[2018-09-13] MEDS: ALLOPURINOL 100 MG TAB PO SCH ×2 (08:30→21:00)
[2018-09-13] MEDS: LOSARTAN 50 MG TAB PO SCH (08:31)
[2018-09-13] MEDS: FUROSEMIDE 20 MG TAB PO SCH (08:31)
[2018-09-13] MEDS: METOPROLOL 50 MG TAB PO SCH ×2 (08:31→21:02)
[2018-09-13] MEDS: AMIODARONE 200 MG TAB PO SCH ×2 (11:00→21:01)
--- NOTE | 2018-09-13 11:15 | PREOPHP ---
DATE OF ADMISSION: 09/12/2018 REASON FOR ADMISSION: Chest heaviness and fast heart rate. HISTORY OF PRESENT ILLNESS: This 88-year-old female was in her usual state of health until yesterday morning. When she woke up she had a chest heaviness. When her office rental clerk came, she took the patient's blood pressure and found that her blood pressure was low and her heart rate was very fast. The paramedics were called and the patient was taken to [facility] Emergency Room. In the Emergency Room, she was found to have tachycardia and hypotension. The patient was treated by Dr. Carreno with a biphasic synchronized cardioversion. The patient was in atrial fibrillation. She did convert to sinus rhythm. The patient is awake now and she is feeling well. Her heart rate In the Emergency Room was as high as 200 beats per minute. It was thought to be either SVT rhythm or rapid atrial fibrillation. The patient did have some slightly elevated troponin levels, which have remained flat. The patient has no chest pain now. PAST MEDICAL HISTORY: Remarkable for history of acute renal failure, vitamin B12 deficiency, back pain with sciatic, bilateral knee pain, left breast cancer, lower extremity edema, hyperlipidemia, history of bronchitis, mild osteoporosis, hypertension, hypomagnesemia pericardial effusion, dilated right atrium, vitamin D deficiency, does get urinary tract infections, heart murmur, anemia, gout. PAST SURGICAL HISTORY: Cataract surgery, cholecystectomy, right hip replacement, left inguinal hernia repair. SOCIAL HISTORY: She has never smoked. Marital status: . CURRENT MEDICATIONS: Include the followin. Metoprolol XL 50 mg twice a day. 2. Allopurinol 100 mg twice a day. 3. Protonix 40 mg a day. 4. Valsartan 160 mg daily. 5. Furosemide 20 mg daily. 6. Eliquis 5 mg twice a day. 7. Watson 5/325. 8. Vitamin D3 2000 units a day. 9. Cyanocobalamin 1000 mcg a day. 10. Synthroid 112 mcg a day. PHYSICAL EXAMINATION: GENERAL: At this time reveals an elderly female in no apparent distress. VITAL SIGNS: Temperature is 98.2, pulse of 92, respirations 18, blood pressure 162/95, O2 saturation 95% on 2 liter nasal cannula. HEENT: Head normocephalic. Eyes: Extraocular muscles intact. NOSE AND MOUTH: Normal. NECK: Supple. No neck vein distention. LUNGS: She has fine expiratory wheezes bilaterally. HEART: Regular rhythm. No murmurs, gallops or rubs. ABDOMEN: Soft, nontender, no masses or megaly. EXTREMITIES: She does have trace to +1 pretibial edema. NEUROLOGIC: Grossly intact. IMPRESSION: This patient presented this morning with sudden onset of tachycardia. It was either SVT or atrial fibrillation. The patient was given some IV medications which did not work, and because of low blood pressure , She underwent an electroshock and converted to sinus rhythm . She is feeling much better now. The patient will have medications adjusted according to coagulating bath operator. PLAN: 1. Continue workup and treatment by cardiology. 2. Resume routine medications. 3. Check laboratory tests in a.m. Dictated By: JANIE JENNINGS MD ND/NTS Conf#: [id number] DID#: [id number] CC: JOSE LEVIN MD;*EndCC* MTDD
--- NOTE | 2018-09-13 14:37 | RADRPT ---
Echocardiogram Report Patient Name: MADELINE BLUEPatient ID: [id number] : 1930 (88y 3m)Study Date: 09/13/2018 10:00:24 AM Gender: FAccession #: [id number] Tech: Joaquin Mercado [facility] Location: 4 Ref.Physician: SARABJIT DEVLIN Height(Cm): BSA: Weight(Kg): Quality: AdequateAccount #: Procedures: Echocardiographic Report: Transthoracic echocardiogram with complete 2D, M-Mode, and doppler examination. Indications: Troponin. Measurements: 2D/M Mode Doppler Measurement Value Normal Range Measurement Value Normal Range LVIDd 2D 3.3 [ 3.8 - 5.2 ] cm AV Peak Rodolfo 1.6 [ 100.0 - 170.0 ] cm/sec LVIDs 2D 2.3 [ 2.2 - 3.5 ] cm AV Peak PG 10.0 [ 2.0 - 9.0 ] mmHg LVPWd 2D 1.0 [ 0.6 - 0.9 ] cm LVOT Peak Rodolfo 0.9 [ 70.0 - 110.0 ] cm/sec IVSd 2D 1.2 [ 0.6 - 0.9 ] cm LVOT Peak PG 3.0 [ 2.0 - 6.0 ] mmHg AoR Diam 2D 2.1 [ 2.3 - 3.1 ] cm MV E Peak Rodolfo 1.1 [ 60.0 - 130.0 ] cm/sec EDV 2D 44.1 [ 46.0 - 106.0 ] ml MV A Peak Rodolfo 1.5 [ 100.0 - 120.0 ] cm/sec ESV 2D 18.3 [ 14.0 - 42.0 ] ml MV E/A 0.7 [ 0.8 - 1.5 ] ratio EF 2D 58.5 [ 54.0 - 74.0 ] percent MV Decel Time 215 [ 104 - 258 ] msec LA Dimen 2D 3.8 [ 2.7 - 3.8 ] cm Lat E` Rodolfo 0.0 [ 10.0 - 15.0 ] cm/sec Lateral E/E` 21.8 [ 1.0 - 2.0 ] ratio Med E` Rodolfo 0.0 cm/sec MV E/A 0.7 [ 0.8 - 1.5 ] ratio TR Peak Rodolfo 3.0 [ 100.0 - 280.0 ] cm/sec TR Peak PG 36.0 mmHg RVSP 44.0 [ 10.0 - 36.0 ] mmHg Findings: Left Ventricle: Normal left ventricular systolic function. Normal left ventricular cavity size. Normal left ventricular wall thickness. Ejection fraction is visually estimated at 55 %. Tissue Doppler/Mitral Doppler indices are consistent with impaired relaxation (Stage I diastolic dysfunction). Right Ventricle: Normal right ventricular size. Normal right ventricular systolic function. Left Atrium: The left atrium is normal in size. Right Atrium: There is mild enlargement of right atrium. Mitral Valve: Trace mitral regurgitation. Aortic Valve: No significant aortic stenosis or insufficiency. Aortic cusps appear mildly calcified. Tricuspid Valve: Normal appearance of the tricuspid valve. Right ventricular systolic pressure is consistent with moderate pulmonary hypertension. Estimated peak PA systolic pressure 44 mmHg. There is moderate tricuspid regurgitation. Pulmonic Valve: Pulmonic valve not well visualized. Pericardium: Moderate pericardial effusion. Aorta: Normal aortic root. IVC: Dilated IVC with respiratory collapse consistent with elevated right atrial pressure. Conclusions: Technically very difficult study. Normal left ventricular systolic function. Normal left ventricular cavity size. Normal left ventricular wall thickness. Ejection fraction is visually estimated at 55 %. Tissue Doppler/Mitral Doppler indices are consistent with impaired relaxation (Stage I diastolic dysfunction). Normal right ventricular size. Normal right ventricular systolic function. The left atrium is normal in size. No significant aortic stenosis or insufficiency. Aortic cusps appear mildly calcified. Normal appearance of the tricuspid valve. Right ventricular systolic pressure is consistent with moderate pulmonary hypertension. Estimated peak PA systolic pressure 44 mmHg. There is moderate tricuspid regurgitation. Moderate pericardial effusion. Dilated IVC with respiratory collapse consistent with elevated right atrial pressure. Electronically Signed By: Sarabjit Devlin 2018-09-13 14:36:22 PST
--- NOTE | 2018-09-13 15:09 | CONS ---
Assessment/Plan Assessment/Plan Hospital Course (Demo Recall) Impression/Plan: - SVT- likely afib/flutter given lack of response to adenosine, now s/p shock x 1 with NSR. had brief non sustained run overnight. will add amiodarone. cont metoprolol and anticoag - NSTEMI- likely type 2 from demand of SVT + cardioversion. no current chest pain. does have CAD RF and known cor calcium on ct. will discus risks/benefits from further evaluation vs. medical mgmt with patient/family. - pericardial effusion- chronic mild-moderate, stable no evidence of HD sign ificance. no further testing recommended at this time. - dvt hx- on anticoag Consultation Date/Type/Reason Admit Date/Time Sep 12, 2018 at 14:22 Date of Consultation: Sep 13, 2018 Type of Consult Cardiology Reason for Consultation Afib, NSTEMI Requesting Provider: JANIE JENNINGS MD Date/Time of Note DATE: 09/13/18 TIME: 15:00 Hx of Present Illness Ms. 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 Patient presented to [facility] ED yesterday do to acute onset chest pain with sob. Reported feelings of heart burn not relieved with anti acid. + palpitaitons, no dizziness, fainting, n/v. Pt found to have rapid HR in 200s without response to adenosine. She was given etomidate and given synch ext shock x 1 with return to NSR, pt denies any palpitations, cp, sob, currently. denies previous episode. at baseline not very active, walks 1-2 hallway no cp/sob. no pnd, orthopnea, edema. no recent illness, flu, sweats, fevers. tolerates eliquis as outpt, no bleeding issues. Constitutional: no complaints Eyes: no complaints ENT: no complaints Respiratory: shortness of breath Cardiovascular: chest pain Gastrointestinal: no complaints Genitourinary: no complaints Musculoskeletal: no complaints Skin: no complaints Neurologic: no complaints Endocrine: no complaints Lymphatic: no complaints Psychological: no complaints, nl mood/affect Immunologic: no complaints Past Medical History Anemia (285.9) (D64.9) Arthritis, degenerative (715.90) (M19.90) right hip replacement in 2006 Breast cancer (174.9) (C50.919) - left lumpectomy with radiation but no chemotherapy in 1987 CAD (coronary artery disease), jena coronary artery (414.01) (I25.10) - noted incidentally on CT pulmonary angiogram 05/10. Disc degeneration, lumbar (722.52) (M51.36) Essential hypertension (401.9) (I10) Hypercholesterolemia (272.0) (E78.0) Hypothyroidism (244.9) (E03.9) Pericardial effusion (423.9) (I31.9)- incidentally noted mild to moderate pericardial effusion and 2011. stable last echo 2014 History of Secondary pulmonary hypertension (416.8) (I27.2 History of Acute Venous Thrombosis Of The Deep Vessels Of The Proximal Lower Extremity (453.41) Past Surgical History History of Breast Surgery Lumpectomy- with radiation History of Cataract Surgery- bilateral ' History of Cholecystectomy- open History of Hernia Repair - left inguinal'05/07with postoperative wound infection History of Tonsillectomy -child Family History Significant Family History: other ( No pertinent family history) Social History Alcohol Use: none Smoking Status: Never smoker Drug Use: none Procedures CXR images reviewed, negative EKG reviewed: SVT Home Meds Reported Medications Furosemide* (Furosemide*) 20 Mg Tablet, 20 MG PO DAILY, #60 TAB HOLD IF SBP BELOW 110 09/12/18 Valsartan* (Diovan*) 160 Mg Tablet, 160 MG PO DAILY, TAB HOLD IF SBP BELOW 110 09/12/18 Metoprolol Tartrate* (Lopressor*) 50 Mg Tab, 50 MG PO BID, #60 TAB HOLD IF SBP BELOW 110 09/12/18 Atorvastatin Calcium (Atorvastatin Calcium) 10 Mg Tablet, 10 MG PO QHS, #30 TAB 09/12/18 Allopurinol* (Allopurinol*) 100 Mg Tablet, 100 MG PO BID, TAB 09/12/18 Apixaban* (Eliquis*) 5 Mg Tablet, 5 MG PO BID, TAB 09/12/18 Cholecalciferol* (Vitamin D3*) 1,000 Unit Tablet, 1000 UNIT PO DAILY, TAB 09/12/18 Cyanocobalamin* (Vitamin B12*) 500 Mcg Tab, 1000 MCG PO DAILY, TAB 09/12/18 Magnesium Oxide* (Magnesium Oxide*) 400 Mg Tablet, 400 MG PO BID, TAB 09/12/18 Pantoprazole* (Protonix*) 40 Mg Tablet.dr, 40 MG PO DAILY, TAB 09/12/18 Levothyroxine Sodium* (Levoxyl*) 112 Mcg Tablet, 112 MCG PO BEFORE BREAKFAST, #30 TAB 09/12/18 Discontinued Reported Medications Calcium Carbonate (Oysco-500) 500 Mg Tablet, 500 MG PO BID, TAB 09/12/18 Apixaban* (Eliquis*) 5 Mg Tablet, 5 MG PO BID, TAB 10/06/16 Calcium Carbonate (Krcu-Yio-064) 500 Mg Tablet, 500 MG PO BID, TAB 10/06/16 Metoprolol Succinate* (Toprol XL*) 50 Mg Tab.er.24h, 50 MG PO BID, TAB 03/21/14 Levothyroxine Sodium* (Synthroid*) 112 Mcg Tablet, 112 MCG PO AC BREAKFAST, TAB 03/21/14 Atorvastatin (Lipitor) 10 Mg Tablet, 10 MG PO HS 04/30/12 Discontinued Scripts Magnesium Chloride* (Mag 64*) 64 Mg Tabsr, 64 MG PO BID for 30 Days, TAB Prov:JOSE LEVIN MD 10/14/16 Zolpidem Tartrate (Ambien Lai) 5 Mg Tablet, 5 MG PO QHS PRN for SLEEP for 30 Days, TAB Prov:JOSE LEVIN MD 10/14/16 Valsartan (Valsartan) 160 Mg Tablet, 160 MG PO DAILY for 30 Days, TAB Prov:JOSE LEVIN MD 10/14/16 Salmeterol Xinaf/Fluticasone* (Advair*) 250-50 Diskus Inhaler, 1 INH INH BID for 30 Days Prov:JOSE LEVIN MD 10/14/16 Pantoprazole* (Pantoprazole*) 40 Mg Tablet., 40 MG PO DAILY@06 for 30 Days Prov:JOSE LEVIN MD 10/14/16 Furosemide* (Furosemide*) 40 Mg Tablet, 40 MG PO DAILY for 30 Days, TAB Prov:JOSE LEVIN MD 10/14/16 Folic Acid* (Folic Acid*) 1 Mg Tablet, 1 MG PO DAILY for 30 Days, TAB Prov:JOSE LEVIN MD 10/14/16 Docusate Sodium (Dok) 100 Mg Capsule, 100 MG PO Q12H PRN for CONSTIPATION for 30 Days, CAP Prov:JOSE LEVIN MD 10/14/16 Cyanocobalamin* (Vitamin B12*) 500 Mcg Tab, 1000 MCG PO DAILY for 30 Days, TAB Prov:JOSE LEVIN MD 10/14/16 Colchicine* (Colcrys*) 0.6 Mg Tablet, 0.6 MG PO DAILY for 30 Days, TAB Prov:JOSE LEVIN MD 10/14/16 Cholecalciferol (Vitamin D3) (VITAMIN D-3) 2,000 Unit Capsule, 2000 UNIT PO DAILY for 30 Days, CAP Prov:JOSE LEVIN MD 10/14/16 Medications Current Medications Allopurinol (Zyloprim) 100 mg BID PO Last administered on 09/13/18 08:30; Admin Dose 100 MG; Start 09/12/18 at 21:00 Apixaban (Eliquis) 5 mg BID PO Last administered on 09/13/18 08:30; Admin Dose 5 MG; Start 09/12/18 at 21:00 Atorvastatin Calcium (Lipitor) 10 mg QHS PO Last administered on 09/12/18 21:28; Admin Dose 10 MG; Start 09/12/18 at 21:00 Furosemide (Lasix) 20 mg DAILY PO Last administered on 09/13/18 08:31; Admin Dose 20 MG; Start 09/13/18 at 09:00 Levothyroxine Sodium (Synthroid) 112 mcg BEFORE BREAKFAST PO Last administered on 09/13/18 08:30; Admin Dose 112 MCG; Start 09/13/18 at 07:00 Metoprolol Tartrate (Lopressor) 50 mg BID PO Last administered on 09/13/18 08:31; Admin Dose 50 MG; Start 09/12/18 at 21:00 Pantoprazole (Protonix Tab) 40 mg DAILY PO Last administered on 09/13/18 08:30; Admin Dose 40 MG; Start 09/12/18 at 16:00 Losartan Potassium (Cozaar) 100 mg DAILY PO Last administered on 09/13/18 08:31; Admin Dose 100 MG; Start 09/13/18 at 09:00 Acetaminophen (Tylenol Tab) 650 mg Q6H PRN PO MILD PAIN(1-3)OR ELEVATED TEMP Last administered on 09/13/18 07:35; Admin Dose 650 MG; Start 09/12/18 at 16:30 Amiodarone HCl (Cordarone) 400 mg BID PO Last administered on 09/13/18at 11:00; Admin Dose 400 MG; Start 09/13/18 at 10:00 Ipratropium [place] (Atrovent 0.02% (Neb)) 0.5 mg Q6H RESP THERAPY HHN ; Start 09/13/18 at 14:00 Allergies: Coded Allergies: No Known Allergy (Unverified , 03/21/14) Social History Smoking Status: Former smoker Exam/Review of Systems Exam Vitals Vital Signs Date Temp Pulse Resp B/P (MAP) Pulse Ox O2 O2 Flow FiO2 Time Delivery Rate 09/13/18 73 12:01 09/13/18 97.7 22 149/74 95 11:12 (99) 09/13/18 Nasal 2.0 08:00 Cannula Intake and Output 09/12/18 09/12/18 09/13/18 1515:00 23:00 07:00 IntakeIntake Total 600 ml 300 ml BalanceBalance 600 ml 300 ml Exam Constitutional: alert, oriented, well developed Psych: nl mood/affect, no complaints Head: normocephalic Eyes: EOMI, nl conjunctiva ENMT: mucosa pink and moist, nl nasal mucosa & septum Neck: non-tender, supple, No jvd Respiratory: clear to auscultation, normal air movement Cardiovascular: nl pulses, regular rate and rhythm, systolic murmur Gastrointestinal: non-tender, soft Musculoskeletal: normal bulk tone Extremities: normal pulses, No calf tenderness Neurological: [employer] II-XII intact, nl mental status, nl speech, nl strength Skin: nl turgor, No rash or lesions Results Result Diagram: 09/12/18 0959 09/13/18 0437 Results 24hrs Laboratory Tests Test 09/12/18 15:45 09/12/18 20:38 09/13/18 04:37 Troponin I 1.410 *H 1.750 *H 1.470 *H Creatine Kinase 120 Creatine Kinase Index 6.3 Creatinine Kinase MB (Mass) 7.50 H Sodium Level 138 Potassium Level 4.5 Chloride Level 106 Carbon Dioxide Level 27 Anion Gap 5 Blood Urea Nitrogen 29 H Creatinine 1.17 H Est Glomerular Filtrat Rate mL/min Glucose Level 158 Calcium Level 9.0 Magnesium Level 1.8 Medications Medication Current Medications Allopurinol (Zyloprim) 100 mg BID PO Last administered on 09/13/18 08:30; Admin Dose 100 MG; Start 09/12/18 at 21:00 Apixaban (Eliquis) 5 mg BID PO Last administered on 09/13/18 08:30; Admin Dose 5 MG; Start 09/12/18 at 21:00 Atorvastatin Calcium (Lipitor) 10 mg QHS PO Last administered on 09/12/18 21:28; Admin Dose 10 MG; Start 09/12/18 at 21:00 Furosemide (Lasix) 20 mg DAILY PO Last administered on 09/13/18 08:31; Admin Dose 20 MG; Start 09/13/18 at 09:00 Levothyroxine Sodium (Synthroid) 112 mcg BEFORE BREAKFAST PO Last administered on 09/13/18 08:30; Admin Dose 112 MCG; Start 09/13/18 at 07:00 Metoprolol Tartrate (Lopressor) 50 mg BID PO Last administered on 09/13/18 08:31; Admin Dose 50 MG; Start 09/12/18 at 21:00 Pantoprazole (Protonix Tab) 40 mg DAILY PO Last administered on 09/13/18 08:30; Admin Dose 40 MG; Start 09/12/18 at 16:00 Losartan Potassium (Cozaar) 100 mg DAILY PO Last administered on 09/13/18 08:31; Admin Dose 100 MG; Start 09/13/18 at 09:00 Acetaminophen (Tylenol Tab) 650 mg Q6H PRN PO MILD PAIN(1-3)OR ELEVATED TEMP Last administered on 09/13/18 07:35; Admin Dose 650 MG; Start 09/12/18 at 16:30 Amiodarone HCl (Cordarone) 400 mg BID PO Last administered on 09/13/18 11:00; Admin Dose 400 MG; Start 09/13/18 at 10:00 Ipratropium [place] (Atrovent 0.02% (Neb)) 0.5 mg Q6H RESP THERAPY HHN ; Start 09/13/18 at 14:00 LUDWIN DEVLIN Sep 13, 2018 15:09
[2018-09-13] MEDS ORDERED: VITAMIN A & D 5 GM OINT PACKET TOP ONE (15:42)
[2018-09-13] MEDS: IPRATROPIUM (NEB) 0.5 MG/2.5 ML AMP HHN SCH ×2 (16:03→20:07)
[2018-09-13] MEDS: ATORVASTATIN 10 MG TAB PO SCH (21:02)
[2018-09-14] VITALS (11 sets, daily range): BP systolic 159–189; BP diastolic 74–91; PULSE 75–102; RESP 18–20
[2018-09-14] MEDS: IPRATROPIUM (NEB) 0.5 MG/2.5 ML AMP HHN SCH ×4 (02:00→20:17)
[2018-09-14] MEDS: ACETAMINOPHEN 325 MG TAB PO PRN (06:38)
[2018-09-14] MEDS: LEVOTHYROXINE 112 MCG TAB PO SCH (06:38)
[2018-09-14] MEDS: PANTOPRAZOLE (EC) 40 MG TAB PO SCH (08:03)
[2018-09-14] MEDS: ALLOPURINOL 100 MG TAB PO SCH ×2 (08:03→21:28)
[2018-09-14] MEDS: AMIODARONE 200 MG TAB PO SCH ×2 (08:03→21:27)
[2018-09-14] MEDS: APIXABAN 5 MG TABLET PO SCH ×2 (08:04→21:28)
[2018-09-14] MEDS: LOSARTAN 50 MG TAB PO SCH (08:04)
[2018-09-14] MEDS: FUROSEMIDE 20 MG TAB PO SCH (08:04)
[2018-09-14] MEDS: METOPROLOL 50 MG TAB PO SCH ×2 (08:04→21:28)
[2018-09-14] MEDS ORDERED: IBUPROFEN 200 MG TAB PO PRN (09:30)
--- NOTE | 2018-09-14 12:46 | PN ---
Date/Time of Note Date/Time of Note DATE: 09/14/18 TIME: 12:33 Assessment/Plan VTE Prophylaxis Risk score (from Ns)>0 risk: 3 SCD applied (from [facility] [place]): Yes Pharmacological prophylaxis: apixaban Pharm contraindication: other Lines/Catheters IV Catheter Type (from [facility]): [place]ine Lock Urinary Cath still in place: No Assessment/Plan Hospital Course 1. Berenice was admitted yesterday after she developed a supraventricular tachycardia with chest pain. She was brought to the emergency room. She eventually underwent electroshock treatment which converted her to sinus rhythm. She continues in sinus rhythm. She is not having any cardiac or pulmonary symptoms at this time. There has been some discussion with the gate agent about doing a nuclear medicine stress test. I told the patient and her niece that I would agree with that and then decide if further testing needed to be done. She is on Eliquis for stroke prevention. She has a history of paroxysmal atrial fibrillation. 2 osteoarthritis of both knees with left knee pain this morning. She did take an ibuprofen 200 mg earlier. I will call Dr. Jang to ask him to see her and evaluate and/or treat her left knee pain. 3. Hypertension 4. History of urinary tract infection 5. History of acute renal failure Result Diagram: 09/14/18 0522 09/14/18 0525 Results 24hrs Laboratory Tests Test 09/14/18 05:22 09/14/18 05:25 White Blood Count 9.0 # Red Blood Count 3.22 L Hemoglobin 9.6 L Hematocrit 30.2 L Mean Corpuscular Volume 93.8 Mean Corpuscular Hemoglobin 29.8 Mean Corpuscular Hemoglobin Concent 31.8 L Red Cell Distribution Width 14.6 H Platelet Count 274 Mean Platelet Volume 10.9 H Immature Granulocytes % 0.400 Neutrophils % 71.8 Lymphocytes % 12.5 L Monocytes % 8.7 Eosinophils % 6.2 Basophils % 0.4 Nucleated Red Blood Cells % 0.0 Immature Granulocytes # 0.040 H Neutrophils # 6.5 Lymphocytes # 1.1 Monocytes # 0.8 Eosinophils # 0.6 H Basophils # 0.0 Nucleated Red Blood Cells # 0.0 Sodium Level 137 Potassium Level 4.2 Chloride Level 101 Carbon Dioxide Level 31 Anion Gap 5 Blood Urea Nitrogen 24 H Creatinine 1.21 H Est Glomerular Filtrat Rate mL/min Glucose Level 182 Calcium Level 9.1 Phosphorus Level 3.1 Magnesium Level 1.5 L Iron Level 35 Total Iron Binding Capacity 283 Percent Iron Saturation 12 L Ferritin 69.5 Total Bilirubin 0.2 Direct Bilirubin 0.00 Indirect Bilirubin 0.2 Aspartate Amino Transf (AST/SGOT) 25 Alanine Aminotransferase (ALT/SGPT) 21 Alkaline Phosphatase 126 H Total Protein 6.1 Albumin 3.3 Globulin 2.80 Albumin/Globulin Ratio 1.17 Subjective 24 Hr Interval Summary Free Text/Dictation Berenice is awake and alert. She does complain of some left knee pain. She has a history of osteoarthritis of both knees. She did take an ibuprofen 200 mg an hour and a half ago. She denies any chest pain or shortness of breath. Respiratory: no complaints Cardiovascular: no complaints Gastrointestinal: no complaints Genitourinary: no complaints Musculoskeletal: bone/joint pain Exam/Review of Systems Exam Vitals Vital Signs Date Temp Pulse Resp B/P (MAP) Pulse Ox O2 O2 Flow FiO2 Time Delivery Rate 09/14/18 98.0 87 18 180/86 98 11:58 (117) 09/14/18 21 08:31 09/13/18 Nasal 2.0 08:00 Cannula Intake and Output 09/13/18 09/13/18 09/14/18 1515:00 23:00 07:00 IntakeIntake Total 1440 ml BalanceBalance 1440 ml Constitutional: alert, oriented, frail Respiratory: clear to auscultation, normal air movement Cardiovascular: regular rate and rhythm Gastrointestinal: soft, non-tender Musculoskeletal: joint tenderness Results Results 24hrs Laboratory Tests Test 09/14/18 05:22 09/14/18 05:25 White Blood Count 9.0 # Red Blood Count 3.22 L Hemoglobin 9.6 L Hematocrit 30.2 L Mean Corpuscular Volume 93.8 Mean Corpuscular Hemoglobin 29.8 Mean Corpuscular Hemoglobin Concent 31.8 L Red Cell Distribution Width 14.6 H Platelet Count 274 Mean Platelet Volume 10.9 H Immature Granulocytes % 0.400 Neutrophils % 71.8 Lymphocytes % 12.5 L Monocytes % 8.7 Eosinophils % 6.2 Basophils % 0.4 Nucleated Red Blood Cells % 0.0 Immature Granulocytes # 0.040 H Neutrophils # 6.5 Lymphocytes # 1.1 Monocytes # 0.8 Eosinophils # 0.6 H Basophils # 0.0 Nucleated Red Blood Cells # 0.0 Sodium Level 137 Potassium Level 4.2 Chloride Level 101 Carbon Dioxide Level 31 Anion Gap 5 Blood Urea Nitrogen 24 H Creatinine 1.21 H Est Glomerular Filtrat Rate mL/min Glucose Level 182 Calcium Level 9.1 Phosphorus Level 3.1 Magnesium Level 1.5 L Iron Level 35 Total Iron Binding Capacity 283 Percent Iron Saturation 12 L Ferritin 69.5 Total Bilirubin 0.2 Direct Bilirubin 0.00 Indirect Bilirubin 0.2 Aspartate Amino Transf (AST/SGOT) 25 Alanine Aminotransferase (ALT/SGPT) 21 Alkaline Phosphatase 126 H Total Protein 6.1 Albumin 3.3 Globulin 2.80 Albumin/Globulin Ratio 1.17 Medications Medication Current Medications Allopurinol (Zyloprim) 100 mg BID PO Last administered on 09/14/18 08:03; Admin Dose 100 MG; Start 09/12/18 at 21:00 Apixaban (Eliquis) 5 mg BID PO Last administered on 09/14/18 08:04; Admin Dose 5 MG; Start 09/12/18 at 21:00 Atorvastatin Calcium (Lipitor) 10 mg QHS PO Last administered on 09/13/18 21:02; Admin Dose 10 MG; Start 09/12/18 at 21:00 Furosemide (Lasix) 20 mg DAILY PO Last administered on 09/14/18 08:04; Admin Dose 20 MG; Start 09/13/18 at 09:00 Levothyroxine Sodium (Synthroid) 112 mcg BEFORE BREAKFAST PO Last administered on 09/14/18 06:38; Admin Dose 112 MCG; Start 09/13/18 at 07:00 Metoprolol Tartrate (Lopressor) 50 mg BID PO Last administered on 09/14/18 08:04; Admin Dose 50 MG; Start 09/12/18 at 21:00 Pantoprazole (Protonix Tab) 40 mg DAILY PO Last administered on 09/14/18 08:03; Admin Dose 40 MG; Start 09/12/18 at 16:00 Losartan Potassium (Cozaar) 100 mg DAILY PO Last administered on 09/14/18 08:04; Admin Dose 100 MG; Start 09/13/18 at 09:00 Acetaminophen (Tylenol Tab) 650 mg Q6H PRN PO MILD PAIN(1-3)OR ELEVATED TEMP Last administered on 09/14/18 06:38; Admin Dose 650 MG; Start 09/12/18 at 16:30 Amiodarone HCl (Cordarone) 400 mg BID PO Last administered on 09/14/18 08:03; Admin Dose 400 MG; Start 09/13/18 at 10:00 Ipratropium [place] (Atrovent 0.02% (Neb)) 0.5 mg Q6H RESP THERAPY HHN Last administered on 09/14/18at 08:31; Admin Dose 0.5 MG; Start 09/13/18 at 14:00 Ibuprofen (Motrin) 200 mg Q6H PRN PO MILD PAIN(1-3) OR TEMP>38C Last administered on 09/14/18at 11:03; Admin Dose 200 MG; Start 09/14/18 at 09:30 JANIE JENNINGS MD Sep 14, 2018 12:44
--- NOTE | 2018-09-14 14:22 | CONS ---
DATE OF ADMISSION: 09/12/2018 DATE OF CONSULTATION: TYPE OF CONSULTATION: Rheumatology. HISTORY OF PRESENT ILLNESS: The patient is an 88-year-old woman who was admitted yesterday to the hospital with supraventricular tachycardia and some chest pain which improved. The patient h as a history of paroxysmal atrial fibrillation and is on Eliquis. During the night after being moved and put in an uncomfortable position, she developed increased the left knee pain. She does have a h istory of osteoarthritis at the knees and has responded in the past to local knee injection. Her las t one was several years ago. At present, the patient continues with left knee pain. It is unclear of any definite swelling. Ther e is crepitus and pain on range of motion. Other joints are without increased pain at present. No j oint swelling. PAST MEDICAL HISTORY: Positive for hypertension, history of DVT of the right leg in 2012, history of hypothyroidism, hyperlipidemia, breast lumpectomy with radiation therapy in 1997, status post abdomi nal hernia and left inguinal area, status post right total hip replacement, history of renal insuffic iency, history of vitamin B12 deficiency, possible history of gout but not recently. SOCIAL HISTORY: The patient is . She does not smoke or drink alcohol. FAMILY HISTORY: Noncontributory. MEDICATIONS: Include: 1. Allopurinol. 2. Protonix. 3. Valsartan 4. Furosemide. 5. Eliquis. 6. Simon. 7. Vitamin D. 8. Vitamin B12. 9. Levothyroxine. 10. Metoprolol. RHEUMATOLOGIC REVIEW OF SYSTEMS: At present unremarkable except as above. Denies fevers, rash, Rayn aud's phenomenon. Denies abdominal pain. No recurrence of chest pain or shortness of breath at pres ent. Denies headaches or numbness. PHYSICAL EXAMINATION: GENERAL: Well-developed, slightly obese woman, in no acute distress, alert, oriented x3. SKIN: Without acute lesions or rashes. HEENT: Without acute oral or ocular lesions. NECK: Without lymphadenopathy. CHEST: Clear to auscultation. HEART: Regular rate and rhythm at present. ABDOMEN: Soft without masses or tenderness. EXTREMITIES: No cyanosis. Minimal pedal edema. MUSCULOSKELETAL: Left knee with tenderness, crepitus, slight decreased range of motion with pain wit h range of motion, possibly mildly warm. No erythema. No definite swelling. Other joints without s ynovitis. ASSESSMENT: 1. Left knee pain likely due to osteoarthritis with exacerbation triggered by position. No evidence of acute gout or other inflammatory arthropathy at present. 2. Paroxysmal atrial fibrillation. 3. Hypertension. PLAN: 1. I discussed my impressions with the patient. 2. After obtaining verbal consent under aseptic technique, the left knee was injected with 30 mg Dep o-Medrol and 1% xylocaine without complications. 3. May apply ice pack p.r.n. Thank you for having me see the patient rheumatologically. Dictated By: ONEL CHAUDHARY MD CW/NTS Conf#: [id number] DID#: [id number] CC: JOSE LEVIN MD; LUDWIN DEVLIN MD;*[facility]*
[2018-09-14] MEDS ORDERED: MAGNESIUM SULFATE 2 GM/50 ML 50 ML IVPB ONE (14:30)
[2018-09-14] MEDS: ATORVASTATIN 10 MG TAB PO SCH (21:28)
[2018-09-14] MEDS: NYSTATIN 30 GM POWDER BTL TOP SCH (21:31)
[2018-09-15] VITALS (12 sets, daily range): BP systolic 138–167; BP diastolic 67–80; PULSE 72–89; RESP 16–18
[2018-09-15] MEDS: IPRATROPIUM (NEB) 0.5 MG/2.5 ML AMP HHN SCH ×4 (02:03→20:08)
[2018-09-15] MEDS: LEVOTHYROXINE 112 MCG TAB PO SCH (06:12)
[2018-09-15] MEDS ORDERED: REGADENOSON 0.4 MG/5 ML SYG ONE (09:10)
--- NOTE | 2018-09-15 09:30 | CONS ---
Assessment/Plan Assessment/Plan Hospital Course (Demo Recall) Impression/Plan: - SVT- very fast rate 200s at presentation. suspect aflutter given lack of r esponse to adenosine, now s/p shock x 1 with NSR. had brief non sustained run HOD #1. but no recurrence on amiodarone. cont metoprolol and anticoag - NSTEMI- likely type 2 from demand of SVT + cardioversion. no current chest pain. does have CAD RF and known cor calcium on ct. discussed risks/benefits from further evaluation vs. medical mgmt with patient/family at length. decision is for stress test tomorrow, plan for lexiscan given poor functional status unlikely to complete exercise protocol - pericardial effusion- chronic mild-moderate, stable no evidence of HD significance. no further testing recommended at this time. - dvt hx- on anticoag Consultation Date/Type/Reason Admit Date/Time Sep 12, 2018 at 14:22 Initial Consult Date 09/13/18 Type of Consult Cardiology Requesting Provider: JANIE JENNINGS MD Date/Time of Note DATE: 09/14/18 TIME: 09:27 24 HR Interval Summary Free Text/Dictation note for 09/14/18 pt without complaint. remains in bed. no cp/sob. wheeze improved has knee pain she states. tele reviewed no afib/svt Detailed Summary Eyes: no complaints ENT: no complaints Respiratory: no complaints Cardiovascular: no complaints Exam/Review of Systems Exam Vitals Vital Signs Date Temp Pulse Resp B/P (MAP) Pulse Ox O2 O2 Flow FiO2 Time Delivery Rate 09/15/18 84 08:22 09/15/18 Nasal 2.0 08:11 Cannula 09/15/18 18 90 07:37 09/15/18 98.9 167/80 07:20 (109) 09/15/18 21 02:05 Intake and Output 09/14/18 09/14/18 09/15/18 1515:00 23:00 07:00 IntakeIntake Total 700 ml 700 ml BalanceBalance 700 ml 700 ml Exam Constitutional: alert, oriented, well developed Psych: nl mood/affect, no complaints Head: normocephalic Eyes: EOMI, nl conjunctiva ENMT: mucosa pink and moist, nl nasal mucosa & septum Neck: non-tender, supple, No jvd Respiratory: clear to auscultation, normal air movement Cardiovascular: nl pulses, regular rate and rhythm, systolic murmur Gastrointestinal: non-tender, soft Musculoskeletal: normal bulk tone Extremities: normal pulses, No calf tenderness Neurological: [employer] II-XII intact, nl mental status, nl speech, nl strength Skin: nl turgor, No rash or lesions Results Result Diagram: 09/15/18 0502 09/15/18 0502 Results 24hrs Laboratory Tests Test 09/15/18 05:02 White Blood Count 8.8 Red Blood Count 3.30 L Hemoglobin 10.0 L Hematocrit 30.4 L Mean Corpuscular Volume 92.1 Mean Corpuscular Hemoglobin 30.3 Mean Corpuscular Hemoglobin Concent 32.9 Red Cell Distribution Width 14.2 Platelet Count 288 Mean Platelet Volume 11.0 H Immature Granulocytes % 0.500 H Neutrophils % 79.7 H Lymphocytes % 9.3 L Monocytes % 8.3 Eosinophils % 1.9 Basophils % 0.3 Nucleated Red Blood Cells % 0.0 Immature Granulocytes # 0.040 H Neutrophils # 7.0 Lymphocytes # 0.8 Monocytes # 0.7 Eosinophils # 0.2 Basophils # 0.0 Nucleated Red Blood Cells # 0.0 Sodium Level 136 Potassium Level 4.1 Chloride Level 92 L Carbon Dioxide Level 31 Anion Gap 13 # Blood Urea Nitrogen 21 H Creatinine 1.25 H Est Glomerular Filtrat Rate mL/min Glucose Level 154 Calcium Level 9.0 Magnesium Level 1.9 Total Bilirubin 0.7 Direct Bilirubin 0.00 Indirect Bilirubin 0.7 Aspartate Amino Transf (AST/SGOT) 27 Alanine Aminotransferase (ALT/SGPT) 30 Alkaline Phosphatase 125 H Total Protein 6.6 Albumin 3.4 Globulin 3.20 Albumin/Globulin Ratio 1.06 Medications Medication Current Medications Allopurinol (Zyloprim) 100 mg BID PO Last administered on 09/14/18at 21:28; Admin Dose 100 MG; Start 09/12/18 at 21:00 Apixaban (Eliquis) 5 mg BID PO Last administered on 09/14/18at 21:28; Admin Dose 5 MG; Start 09/12/18 at 21:00 Atorvastatin Calcium (Lipitor) 10 mg QHS PO Last administered on 09/14/18at 21 :28; Admin Dose 10 MG; Start 09/12/18 at 21:00 Furosemide (Lasix) 20 mg DAILY PO Last administered on 09/14/18 08:04; Admin Dose 20 MG; Start 09/13/18 at 09:00 Levothyroxine Sodium (Synthroid) 112 mcg BEFORE BREAKFAST PO Last administered on 09/15/18 06:12; Admin Dose 112 MCG; Start 09/13/18 at 07:00 Metoprolol Tartrate (Lopressor) 50 mg BID PO Last administered on 09/14/18 21:28; Admin Dose 50 MG; Start 09/12/18 at 21:00 Pantoprazole (Protonix Tab) 40 mg DAILY PO Last administered on 09/14/18 08:03; Admin Dose 40 MG; Start 09/12/18 at 16:00 Losartan Potassium (Cozaar) 100 mg DAILY PO Last administered on 09/14/18 08:04; Admin Dose 100 MG; Start 09/13/18 at 09:00 Acetaminophen (Tylenol Tab) 650 mg Q6H PRN PO MILD PAIN(1-3)OR ELEVATED TEMP Last administered on 09/14/18 06:38; Admin Dose 650 MG; Start 09/12/18 at 16:30 Amiodarone HCl (Cordarone) 400 mg BID PO Last administered on 09/14/18 21:27; Admin Dose 400 MG; Start 09/13/18 at 10:00 Ipratropium [place] (Atrovent 0.02% (Neb)) 0.5 mg Q6H RESP THERAPY HHN Last administered on 09/15/18 07:37; Admin Dose 0.5 MG; Start 09/13/18 at 14:00 Ibuprofen (Motrin) 200 mg Q6H PRN PO MILD PAIN(1-3) OR TEMP>38C Last administered on 09/14/18 11:03; Admin Dose 200 MG; Start 09/14/18 at 09:30 Nystatin (Nystatin Powder) 1 applic TID TOP Last administered on 09/14/18 21:31; Admin Dose 1 APPLIC; Start 09/14/18 at 21:00 LUDWIN DEVLIN Sep 15, 2018 09:30
--- NOTE | 2018-09-15 09:33 | CONS ---
Assessment/Plan Assessment/Plan Hospital Course (Demo Recall) Impression/Plan: - SVT- very fast rate 200s at presentation. suspect aflutter given lack of r esponse to adenosine, now s/p shock x 1 with NSR. had brief non sustained run HOD #1. but no recurrence on amiodarone. cont metoprolol and anticoag - NSTEMI- likely type 2 from demand of SVT + cardioversion. no current chest pain. does have CAD RF and known cor calcium on ct. stress result pending, if no ischemia or low risk would not recommend further evaluation. if higher risk findings will need further d/w family re;invasive evaluation. pt currently hesitant to proceed with any invasive options - pericardial effusion- chronic mild-moderate, stable no evidence of HD significance. no further testing recommended at this time. - dvt hx- on anticoag Consultation Date/Type/Reason Admit Date/Time Sep 12, 2018 at 14:22 Initial Consult Date 09/13/18 Type of Consult Cardiology Requesting Provider: JANIE JENNINGS MD Date/Time of Note DATE: 09/15/18 TIME: 09:30 24 HR Interval Summary Free Text/Dictation pt seen this am prior to stress test. states had knee injection yesterday. but not up and moving around. mostly in bed. no cp/sob/palp tele reviewed no events nsr Constitutional: no complaints Detailed Summary Eyes: no complaints ENT: no complaints Respiratory: no complaints Cardiovascular: no complaints Exam/Review of Systems Exam Vitals Vital Signs Date Temp Pulse Resp B/P (MAP) Pulse Ox O2 O2 Flow FiO2 Time Delivery Rate 09/15/18 84 08:22 09/15/18 Nasal 2.0 08:11 Cannula 09/15/18 18 90 07:37 09/15/18 98.9 167/80 07:20 (109) 09/15/18 21 02:05 Intake and Output 09/14/18 09/14/18 09/15/18 1515:00 23:00 07:00 IntakeIntake Total 700 ml 700 ml BalanceBalance 700 ml 700 ml Exam Constitutional: alert, oriented, well developed Psych: nl mood/affect, no complaints Head: normocephalic Eyes: EOMI, nl conjunctiva ENMT: mucosa pink and moist, nl nasal mucosa & septum Neck: non-tender, supple, No jvd Respiratory: clear to auscultation, normal air movement Cardiovascular: nl pulses, regular rate and rhythm, systolic murmur Gastrointestinal: non-tender, soft Musculoskeletal: normal bulk tone Extremities: normal pulses, No calf tenderness Neurological: PRODUCT DESIGNER II-XII intact, nl mental status, nl speech, nl strength Skin: nl turgor, No rash or lesions Results Result Diagram: 09/15/18 0502 09/15/18 0502 Results 24hrs Laboratory Tests Test 09/15/18 05:02 White Blood Count 8.8 Red Blood Count 3.30 L Hemoglobin 10.0 L Hematocrit 30.4 L Mean Corpuscular Volume 92.1 Mean Corpuscular Hemoglobin 30.3 Mean Corpuscular Hemoglobin Concent 32.9 Red Cell Distribution Width 14.2 Platelet Count 288 Mean Platelet Volume 11.0 H Immature Granulocytes % 0.500 H Neutrophils % 79.7 H Lymphocytes % 9.3 L Monocytes % 8.3 Eosinophils % 1.9 Basophils % 0.3 Nucleated Red Blood Cells % 0.0 Immature Granulocytes # 0.040 H Neutrophils # 7.0 Lymphocytes # 0.8 Monocytes # 0.7 Eosinophils # 0.2 Basophils # 0.0 Nucleated Red Blood Cells # 0.0 Sodium Level 136 Potassium Level 4.1 Chloride Level 92 L Carbon Dioxide Level 31 Anion Gap 13 # Blood Urea Nitrogen 21 H Creatinine 1.25 H Est Glomerular Filtrat Rate mL/min Glucose Level 154 Calcium Level 9.0 Magnesium Level 1.9 Total Bilirubin 0.7 Direct Bilirubin 0.00 Indirect Bilirubin 0.7 Aspartate Amino Transf (AST/SGOT) 27 Alanine Aminotransferase (ALT/SGPT) 30 Alkaline Phosphatase 125 H Total Protein 6.6 Albumin 3.4 Globulin 3.20 Albumin/Globulin Ratio 1.06 Imaging Imaging cxr report revied ekg reviewed nsr with rbbb. nstwi Medications Medication Current Medications Allopurinol (Zyloprim) 100 mg BID PO Last administered on 09/14/18at 21:28; Admin Dose 100 MG; Start 09/12/18 at 21:00 Apixaban (Eliquis) 5 mg BID PO Last administered on 09/14/18at 21:28; Admin Dose 5 MG; Start 09/12/18 at 21:00 Atorvastatin Calcium (Lipitor) 10 mg QHS PO Last administered on 09/14/18at 21:28; Admin Dose 10 MG; Start 09/12/18 at 21:00 Furosemide (Lasix) 20 mg DAILY PO Last administered on 09/14/18 08:04; Admin Dose 20 MG; Start 09/13/18 at 09:00 Levothyroxine Sodium (Synthroid) 112 mcg BEFORE BREAKFAST PO Last administered on 09/15/18 06:12; Admin Dose 112 MCG; Start 09/13/18 at 07:00 Metoprolol Tartrate (Lopressor) 50 mg BID PO Last administered on 09/14/18 21:28; Admin Dose 50 MG; Start 09/12/18 at 21:00 Pantoprazole (Protonix Tab) 40 mg DAILY PO Last administered on 09/14/18 08:03; Admin Dose 40 MG; Start 09/12/18 at 16:00 Losartan Potassium (Cozaar) 100 mg DAILY PO Last administered on 09/14/18 08:04; Admin Dose 100 MG; Start 09/13/18 at 09:00 Acetaminophen (Tylenol Tab) 650 mg Q6H PRN PO MILD PAIN(1-3)OR ELEVATED TEMP Last administered on 09/14/18 06:38; Admin Dose 650 MG; Start 09/12/18 at 16:30 Amiodarone HCl (Cordarone) 400 mg BID PO Last administered on 09/14/18 21:27; Admin Dose 400 MG; Start 09/13/18 at 10:00 Ipratropium [place] (Atrovent 0.02% (Neb)) 0.5 mg Q6H RESP THERAPY HHN Last administered on 09/15/18 07:37; Admin Dose 0.5 MG; Start 09/13/18 at 14:00 Ibuprofen (Motrin) 200 mg Q6H PRN PO MILD PAIN(1-3) OR TEMP>38C Last administered on 09/14/18 11:03; Admin Dose 200 MG; Start 09/14/18 at 09:30 Nystatin (Nystatin Powder) 1 applic TID TOP Last administered on 09/14/18 21:31; Admin Dose 1 APPLIC; Start 09/14/18 at 21:00 LUDWIN DEVLIN Sep 15, 2018 09:33
[2018-09-15] MEDS: ACETAMINOPHEN 325 MG TAB PO PRN (10:32)
[2018-09-15] MEDS: PANTOPRAZOLE (EC) 40 MG TAB PO SCH (10:35)
[2018-09-15] MEDS: ALLOPURINOL 100 MG TAB PO SCH ×2 (10:35→20:50)
[2018-09-15] MEDS: METOPROLOL 50 MG TAB PO SCH ×2 (10:36→20:50)
[2018-09-15] MEDS: AMIODARONE 200 MG TAB PO SCH ×2 (10:37→20:50)
[2018-09-15] MEDS: LOSARTAN 50 MG TAB PO SCH (10:37)
[2018-09-15] MEDS: APIXABAN 5 MG TABLET PO SCH ×2 (10:37→20:49)
[2018-09-15] MEDS: NYSTATIN 30 GM POWDER BTL TOP SCH ×3 (10:38→20:50)
[2018-09-15] MEDS: FUROSEMIDE 20 MG TAB PO SCH (10:38)
--- NOTE | 2018-09-15 10:55 | PN ---
Date/Time of Note Date/Time of Note DATE: 09/15/18 TIME: 10:50 Assessment/Plan VTE Prophylaxis Risk score (from Ns)>0 risk: 8 SCD applied (from Ns): Yes SCD contraindicated: other Pharmacological prophylaxis: apixaban Pharm contraindication: other Lines/Catheters IV Catheter Type [facility]from [facility]): Saline Lock Urinary Cath still in place: No Assessment/Plan Hospital Course 1Nithin Ng was admitted yesterday after she developed a supraventricular tachycardia with chest pain. She was brought to the emergency room. She eventually underwent electroshock treatment which converted her to sinus rhythm. She continues in sinus rhythm. She is not having any cardiac or pulmonary symptoms at this time. There has been some discussion with the beauty culturist about doing a nuclear medicine stress test. I told the patient and her niece that I would agree with that and then decide if further testing needed to be done. She is on Eliquis for stroke prevention. She has a history of paroxysmal atrial fibrillation. 2 osteoarthritis of both knees with left knee pain this morning. She did take an ibuprofen 200 mg earlier. I will call Dr. Jang to ask him to see her and evaluate and/or treat her left knee pain. 3. Hypertension 4. History of urinary tract infection 5. History of acute renal failure Result Diagram: 09/15/18 0502 09/15/18 0502 Results 24hrs Laboratory Tests Test 09/15/18 05:02 White Blood Count 8.8 Red Blood Count 3.30 L Hemoglobin 10.0 L Hematocrit 30.4 L Mean Corpuscular Volume 92.1 Mean Corpuscular Hemoglobin 30.3 Mean Corpuscular Hemoglobin Concent 32.9 Red Cell Distribution Width 14.2 Platelet Count 288 Mean Platelet Volume 11.0 H Immature Granulocytes % 0.500 H Neutrophils % 79.7 H Lymphocytes % 9.3 L Monocytes % 8.3 Eosinophils % 1.9 Basophils % 0.3 Nucleated Red Blood Cells % 0.0 Immature Granulocytes # 0.040 H Neutrophils # 7.0 Lymphocytes # 0.8 Monocytes # 0.7 Eosinophils # 0.2 Basophils # 0.0 Nucleated Red Blood Cells # 0.0 Sodium Level 136 Potassium Level 4.1 Chloride Level 92 L Carbon Dioxide Level 31 Anion Gap 13 # Blood Urea Nitrogen 21 H Creatinine 1.25 H Est Glomerular Filtrat Rate mL/min Glucose Level 154 Calcium Level 9.0 Magnesium Level 1.9 Total Bilirubin 0.7 Direct Bilirubin 0.00 Indirect Bilirubin 0.7 Aspartate Amino Transf (AST/SGOT) 27 Alanine Aminotransferase (ALT/SGPT) 30 Alkaline Phosphatase 125 H Total Protein 6.6 Albumin 3.4 Globulin 3.20 Albumin/Globulin Ratio 1.06 Subjective 24 Hr Interval Summary Free Text/Dictation Berenice is awake and alert. She just completed a nuclear medicine cardiac stress test. She denies chest pain or shortness of breath. She continues to have pain in her left knee. She was seen by Dr. Draper, a gis specialist , yesterday who gave her a cortisone injection in the left knee. Knee is slightly better today. Constitutional: no complaints Respiratory: no complaints Cardiovascular: no complaints Gastrointestinal: no complaints Genitourinary: no complaints Musculoskeletal: bone/joint pain Exam/Review of Systems Exam Vitals Vital Signs Date Temp Pulse Resp B/P (MAP) Pulse Ox O2 O2 Flow FiO2 Time Delivery Rate 09/15/18 84 08:22 09/15/18 Nasal 2.0 08:11 Cannula 09/15/18 18 90 07:37 09/15/18 98.9 167/80 07:20 (109) 09/15/18 21 02:05 Intake and Output 09/14/18 09/14/18 09/15/18 1515:00 23:00 07:00 IntakeIntake Total 700 ml 700 ml BalanceBalance 700 ml 700 ml Constitutional: alert, oriented, frail Respiratory: clear to auscultation, normal air movement Cardiovascular: regular rate and rhythm Gastrointestinal: soft, non-tender Musculoskeletal: joint tenderness Results Results 24hrs Laboratory Tests Test 09/15/18 05:02 White Blood Count 8.8 Red Blood Count 3.30 L Hemoglobin 10.0 L Hematocrit 30.4 L Mean Corpuscular Volume 92.1 Mean Corpuscular Hemoglobin 30.3 Mean Corpuscular Hemoglobin Concent 32.9 Red Cell Distribution Width 14.2 Platelet Count 288 Mean Platelet Volume 11.0 H Immature Granulocytes % 0.500 H Neutrophils % 79.7 H Lymphocytes % 9.3 L Monocytes % 8.3 Eosinophils % 1.9 Basophils % 0.3 Nucleated Red Blood Cells % 0.0 Immature Granulocytes # 0.040 H Neutrophils # 7.0 Lymphocytes # 0.8 Monocytes # 0.7 Eosinophils # 0.2 Basophils # 0.0 Nucleated Red Blood Cells # 0.0 Sodium Level 136 Potassium Level 4.1 Chloride Level 92 L Carbon Dioxide Level 31 Anion Gap 13 # Blood Urea Nitrogen 21 H Creatinine 1.25 H Est Glomerular Filtrat Rate mL/min Glucose Level 154 Calcium Level 9.0 Magnesium Level 1.9 Total Bilirubin 0.7 Direct Bilirubin 0.00 Indirect Bilirubin 0.7 Aspartate Amino Transf (AST/SGOT) 27 Alanine Aminotransferase (ALT/SGPT) 30 Alkaline Phosphatase 125 H Total Protein 6.6 Albumin 3.4 Globulin 3.20 Albumin/Globulin Ratio 1.06 Medications Medication Current Medications Allopurinol (Zyloprim) 100 mg BID PO Last administered on 09/15/18 10:35; Admin Dose 100 MG; Start 09/12/18 at 21:00 Apixaban (Eliquis) 5 mg BID PO Last administered on 09/15/18 10:37; Admin Dose 5 MG; Start 09/12/18 at 21:00 Atorvastatin Calcium (Lipitor) 10 mg QHS PO Last administered on 09/14/18 21:28; Admin Dose 10 MG; Start 09/12/18 at 21:00 Furosemide (Lasix) 20 mg DAILY PO Last administered on 09/15/18 10:38; Admin Dose 20 MG; Start 09/13/18 at 09:00 Levothyroxine Sodium (Synthroid) 112 mcg BEFORE BREAKFAST PO Last administered on 09/15/18 06:12; Admin Dose 112 MCG; Start 09/13/18 at 07:00 Metoprolol Tartrate (Lopressor) 50 mg BID PO Last administered on 09/15/18 10:36; Admin Dose 50 MG; Start 09/12/18 at 21:00 Pantoprazole (Protonix Tab) 40 mg DAILY PO Last administered on 09/15/18 10:35; Admin Dose 40 MG; Start 09/12/18 at 16:00 Losartan Potassium (Cozaar) 100 mg DAILY PO Last administered on 09/15/18 10:37; Admin Dose 100 MG; Start 09/13/18 at 09:00 Acetaminophen (Tylenol Tab) 650 mg Q6H PRN PO MILD PAIN(1-3)OR ELEVATED TEMP Last administered on 09/15/18 10:32; Admin Dose 650 MG; Start 09/12/18 at 16:30 Amiodarone HCl (Cordarone) 400 mg BID PO Last administered on 09/15/18 10:37; Admin Dose 400 MG; Start 09/13/18 at 10:00 Ipratropium [place] (Atrovent 0.02% (Neb)) 0.5 mg Q6H RESP THERAPY HHN Last administered on 09/15/18 07:37; Admin Dose 0.5 MG; Start 09/13/18 at 14:00 Ibuprofen (Motrin) 200 mg Q6H PRN PO MILD PAIN(1-3) OR TEMP>38C Last administered on 09/14/18 11:03; Admin Dose 200 MG; Start 09/14/18 at 09:30 Nystatin (Nystatin Powder) 1 applic TID TOP Last administered on 09/15/18 10:38; Admin Dose 1 APPLIC; Start 09/14/18 at 21:00 JANIE JENNINGS MD Sep 15, 2018 10:55
--- NOTE | 2018-09-15 13:14 | CONS ---
Consult Date/Type/Reason Admit Date/Time Sep 12, 2018 at 14:22 Initial Consult Date 09/13/18 Type of Consultation: Rheum Requesting Provider: JANIE JENNINGS MD Date/Time of Note DATE: 09/15/18 TIME: 13:10 Subjective Significantly less left knee pain today. No new complaints. Objective Vitals Vital Signs Date Temp Pulse Resp B/P (MAP) Pulse Ox O2 O2 Flow FiO2 Time Delivery Rate 09/15/18 73 12:18 09/15/18 98.5 16 139/67 98 Room Air 11:33 (91) 09/15/18 2.0 08:11 09/15/18 21 02:05 Intake and Output 09/14/18 09/14/18 09/15/18 1515:00 23:00 07:00 IntakeIntake Total 700 ml 700 ml BalanceBalance 700 ml 700 ml Exam GENERAL: No acute distress, alert, oriented x3. SKIN: Without acute lesions or rashes. HEENT: Without acute oral or ocular lesions. NECK: Without lymphadenopathy. CHEST: Clear to auscultation. HEART: Regular rate and rhythm at present. ABDOMEN: Soft without masses or tenderness. EXTREMITIES: Minimal pedal edema. MUSCULOSKELETAL: Left knee with less tenderness. Less or no swelling. . Other joints without synovitis. Results/Medications Result Diagram: 09/15/18 0502 09/15/18 0502 Results 24 hrs Laboratory Tests Test 09/15/18 05:02 White Blood Count 8.8 Red Blood Count 3.30 L Hemoglobin 10.0 L Hematocrit 30.4 L Mean Corpuscular Volume 92.1 Mean Corpuscular Hemoglobin 30.3 Mean Corpuscular Hemoglobin Concent 32.9 Red Cell Distribution Width 14.2 Platelet Count 288 Mean Platelet Volume 11.0 H Immature Granulocytes % 0.500 H Neutrophils % 79.7 H Lymphocytes % 9.3 L Monocytes % 8.3 Eosinophils % 1.9 Basophils % 0.3 Nucleated Red Blood Cells % 0.0 Immature Granulocytes # 0.040 H Neutrophils # 7.0 Lymphocytes # 0.8 Monocytes # 0.7 Eosinophils # 0.2 Basophils # 0.0 Nucleated Red Blood Cells # 0.0 Sodium Level 136 Potassium Level 4.1 Chloride Level 92 L Carbon Dioxide Level 31 Anion Gap 13 # Blood Urea Nitrogen 21 H Creatinine 1.25 H Est Glomerular Filtrat Rate mL/min Glucose Level 154 Calcium Level 9.0 Magnesium Level 1.9 Total Bilirubin 0.7 Direct Bilirubin 0.00 Indirect Bilirubin 0.7 Aspartate Amino Transf (AST/SGOT) 27 Alanine Aminotransferase (ALT/SGPT) 30 Alkaline Phosphatase 125 H Total Protein 6.6 Albumin 3.4 Globulin 3.20 Albumin/Globulin Ratio 1.06 Home Meds Reported Medications Furosemide* (Furosemide*) 20 Mg Tablet, 20 MG PO DAILY, #60 TAB HOLD IF SBP BELOW 110 09/12/18 Valsartan* (Diovan*) 160 Mg Tablet, 160 MG PO DAILY, TAB HOLD IF SBP BELOW 110 09/12/18 Metoprolol Tartrate* (Lopressor*) 50 Mg Tab, 50 MG PO BID, #60 TAB HOLD IF SBP BELOW 110 09/12/18 Atorvastatin Calcium (Atorvastatin Calcium) 10 Mg Tablet, 10 MG PO QHS, #30 TAB 09/12/18 Allopurinol* (Allopurinol*) 100 Mg Tablet, 100 MG PO BID, TAB 09/12/18 Apixaban* (Eliquis*) 5 Mg Tablet, 5 MG PO BID, TAB 09/12/18 Cholecalciferol* (Vitamin D3*) 1,000 Unit Tablet, 1000 UNIT PO DAILY, TAB 09/12/18 Cyanocobalamin* (Vitamin B12*) 500 Mcg Tab, 1000 MCG PO DAILY, TAB 09/12/18 Magnesium Oxide* (Magnesium Oxide*) 400 Mg Tablet, 400 MG PO BID, TAB 09/12/18 Pantoprazole* (Protonix*) 40 Mg Tablet.dr, 40 MG PO DAILY, TAB 09/12/18 Levothyroxine Sodium* (Levoxyl*) 112 Mcg Tablet, 112 MCG PO BEFORE BREAKFAST, #30 TAB 09/12/18 Discontinued Reported Medications Calcium Carbonate (Oysco-500) 500 Mg Tablet, 500 MG PO BID, TAB 09/12/18 Apixaban* (Eliquis*) 5 Mg Tablet, 5 MG PO BID, TAB 10/06/16 Calcium Carbonate ([id number]) 500 Mg Tablet, 500 MG PO BID, TAB 10/06/16 Metoprolol Succinate* (Toprol XL*) 50 Mg Tab.er.24h, 50 MG PO BID, TAB 03/21/14 Levothyroxine Sodium* (Synthroid*) 112 Mcg Tablet, 112 MCG PO AC BREAKFAST, TAB 03/21/14 Atorvastatin (Lipitor) 10 Mg Tablet, 10 MG PO HS 04/30/12 Discontinued Scripts Magnesium Chloride* (Mag 64*) 64 Mg Tabsr, 64 MG PO BID for 30 Days, TAB Prov:JOSE LEVIN MD 10/14/16 Zolpidem Tartrate (Ambien Lai) 5 Mg Tablet, 5 MG PO QHS PRN for SLEEP for 30 Days, TAB Prov:JOSE LEVIN MD 10/14/16 Valsartan (Valsartan) 160 Mg Tablet, 160 MG PO DAILY for 30 Days, TAB Prov:JOSE LEVIN MD 10/14/16 Salmeterol Xinaf/Fluticasone* (Advair*) 250-50 Diskus Inhaler, 1 INH INH BID for 30 Days Prov:JOSE LEVIN MD 10/14/16 Pantoprazole* (Pantoprazole*) 40 Mg Tablet.dr, 40 MG PO DAILY@06 for 30 Days Prov:JOSE LEVIN MD 10/14/16 Furosemide* (Furosemide*) 40 Mg Tablet, 40 MG PO DAILY for 30 Days, TAB Prov:JOSE LEVIN MD 10/14/16 Folic Acid* (Folic Acid*) 1 Mg Tablet, 1 MG PO DAILY for 30 Days, TAB Prov:JOSE LEVIN MD 10/14/16 Docusate Sodium (Dok) 100 Mg Capsule, 100 MG PO Q12H PRN for CONSTIPATION for 30 Days, CAP Prov:JOSE LEVIN MD 10/14/16 Cyanocobalamin* (Vitamin B12*) 500 Mcg Tab, 1000 MCG PO DAILY for 30 Days, TAB Prov:JOSE LEVIN MD 10/14/16 Colchicine* (Colcrys*) 0.6 Mg Tablet, 0.6 MG PO DAILY for 30 Days, TAB Prov:JOSE LEVIN MD 10/14/16 Cholecalciferol (Vitamin D3) (VITAMIN D-3) 2,000 Unit Capsule, 2000 UNIT PO DAILY for 30 Days, CAP Prov:JOSE LEVIN MD 10/14/16 Medications Current Medications Allopurinol (Zyloprim) 100 mg BID PO Last administered on 09/15/18at 10:35; Admin Dose 100 MG; Start 09/12/18 at 21:00 Apixaban (Eliquis) 5 mg BID PO Last administered on 09/15/18 10:37; Admin Dose 5 MG; Start 09/12/18 at 21:00 Atorvastatin Calcium (Lipitor) 10 mg QHS PO Last administered on 09/14/18 21:28; Admin Dose 10 MG; Start 09/12/18 at 21:00 Furosemide (Lasix) 20 mg DAILY PO Last administered on 09/15/18 10:38; Admin Dose 20 MG; Start 09/13/18 at 09:00 Levothyroxine Sodium (Synthroid) 112 mcg BEFORE BREAKFAST PO Last administered on 09/15/18 06:12; Admin Dose 112 MCG; Start 09/13/18 at 07:00 Metoprolol Tartrate (Lopressor) 50 mg BID PO Last administered on 09/15/18 10:36; Admin Dose 50 MG; Start 09/12/18 at 21:00 Pantoprazole (Protonix Tab) 40 mg DAILY PO Last administered on 09/15/18 10:35; Admin Dose 40 MG; Start 09/12/18 at 16:00 Losartan Potassium (Cozaar) 100 mg DAILY PO Last administered on 09/15/18 10:3 7; Admin Dose 100 MG; Start 09/13/18 at 09:00 Acetaminophen (Tylenol Tab) 650 mg Q6H PRN PO MILD PAIN(1-3)OR ELEVATED TEMP Last administered on 09/15/18 10:32; Admin Dose 650 MG; Start 09/12/18 at 16:30 Amiodarone HCl (Cordarone) 400 mg BID PO Last administered on 09/15/18 10:37; Admin Dose 400 MG; Start 09/13/18 at 10:00 Ipratropium [place] (Atrovent 0.02% (Neb)) 0.5 mg Q6H RESP THERAPY HHN Last administered on 09/15/18 07:37; Admin Dose 0.5 MG; Start 09/13/18 at 14:00 Nystatin (Nystatin Powder) 1 applic TID TOP Last administered on 09/15/18 10:38; Admin Dose 1 APPLIC; Start 09/14/18 at 21:00 Tramadol HCl (Ultram) 50 mg Q6H PRN PO MODERATE PAIN LEVEL 4-6; Start 09/15/18 at 11:00 Assessment/Plan Hospital Course (Demo Recall) ASSESSMENT: 1. Left knee pain likely due to osteoarthritis with exacerbation triggered by position. No evidence of acute gout or other inflammatory arthropathy at present. 2. Paroxysmal atrial fibrillation. 3. Hypertension. PLAN: Continue present therapy. ONEL CHAUDHARY MD Sep 15, 2018 13:14
[2018-09-15] MEDS: ATORVASTATIN 10 MG TAB PO SCH (20:49)
[2018-09-16] VITALS (12 sets, daily range): BP systolic 131–149; BP diastolic 66–69; PULSE 71–88; RESP 17–18
[2018-09-16] MEDS: IPRATROPIUM (NEB) 0.5 MG/2.5 ML AMP HHN SCH ×4 (01:46→20:06)
[2018-09-16] MEDS: ACETAMINOPHEN 325 MG TAB PO PRN (03:57)
[2018-09-16] MEDS: LEVOTHYROXINE 112 MCG TAB PO SCH (06:16)
[2018-09-16] MEDS: NYSTATIN 30 GM POWDER BTL TOP SCH ×3 (09:14→22:05)
[2018-09-16] MEDS: APIXABAN 5 MG TABLET PO SCH ×2 (09:15→21:57)
[2018-09-16] MEDS: PANTOPRAZOLE (EC) 40 MG TAB PO SCH (09:15)
[2018-09-16] MEDS: FUROSEMIDE 20 MG TAB PO SCH (09:15)
[2018-09-16] MEDS: ALLOPURINOL 100 MG TAB PO SCH ×2 (09:15→21:58)
[2018-09-16] MEDS: LOSARTAN 50 MG TAB PO SCH (09:16)
[2018-09-16] MEDS: METOPROLOL 50 MG TAB PO SCH ×2 (09:16→22:00)
[2018-09-16] MEDS: AMIODARONE 200 MG TAB PO SCH ×2 (09:16→22:01)
--- NOTE | 2018-09-16 09:40 | PN ---
Date/Time of Note Date/Time of Note DATE: 09/16/18 TIME: 09:38 Assessment/Plan VTE Prophylaxis Risk score (from Ns)>0 risk: 8 SCD applied (from Ns): Yes Pharmacological prophylaxis: apixaban Lines/Catheters IV [facility]from [facility] [place] Urinary Cath still in place: No Assessment/Plan Assessment/Plan 1. SVT resolved 2. Hx dvt rxd with eliquis 3. HBP, controlled 4. Rev with rn, needs rehab before dc home 5. Gout, quiescent Result Diagram: 09/16/1852509/16/18525 Results 24hrs Laboratory Tests Test 09/16/18 05:26 White Blood Count 9.3 Red Blood Count 3.33 L Hemoglobin 9.9 L Hematocrit 30.8 L Mean Corpuscular Volume 92.5 Mean Corpuscular Hemoglobin 29.7 Mean Corpuscular Hemoglobin Concent 32.1 Red Cell Distribution Width 14.5 Platelet Count 307 Mean Platelet Volume 11.1 H Immature Granulocytes % 0.500 H Neutrophils % 76.7 Lymphocytes % 8.1 L Monocytes % 8.5 Eosinophils % 5.8 Basophils % 0.4 Nucleated Red Blood Cells % 0.0 Immature Granulocytes # 0.050 H Neutrophils # 7.2 Lymphocytes # 0.8 Monocytes # 0.8 Eosinophils # 0.5 Basophils # 0.0 Nucleated Red Blood Cells # 0.0 Sodium Level 134 L Potassium Level 4.1 Chloride Level 96 L Carbon Dioxide Level 33 H Anion Gap 5 # Blood Urea Nitrogen 31 H Creatinine 1.37 H Est Glomerular Filtrat Rate mL/min Glucose Level 163 Calcium Level 9.0 Total Bilirubin 0.2 Direct Bilirubin 0.00 Indirect Bilirubin 0.2 Aspartate Amino Transf (AST/SGOT) 22 Alanine Aminotransferase (ALT/SGPT) 23 Alkaline Phosphatase 120 Total Protein 6.2 Albumin 3.3 Globulin 2.90 Albumin/Globulin Ratio 1.13 Subjective 24 Hr Interval Summary Cardiovascular: No chest pain, No orthopenea Gastrointestinal: constipation Genitourinary: no complaints Musculoskeletal: other (knee pain is better) Exam/Review of Systems Exam Vitals Vital Signs Date Temp Pulse Resp B/P (MAP) Pulse Ox O2 O2 Flow FiO2 Time Delivery Rate 09/16/18 2.0 08:30 09/16/18 84 18 89 21 08:30 09/16/18 97.6 131/66 07:43 (87) 09/16/18 Nasal 03:45 Cannula Intake and Output 09/15/18 09/15/18 09/16/18 1515:00 23:00 07:00 IntakeIntake Total 0 ml 1000 ml 360 ml BalanceBalance 0 ml 1000 ml 360 ml Neck: No jvd Respiratory: clear to auscultation Cardiovascular: regular rate and rhythm Gastrointestinal: soft Extremities: No edema Results Results 24hrs Laboratory Tests Test 09/16/18 05:26 White Blood Count 9.3 Red Blood Count 3.33 L Hemoglobin 9.9 L Hematocrit 30.8 L Mean Corpuscular Volume 92.5 Mean Corpuscular Hemoglobin 29.7 Mean Corpuscular Hemoglobin Concent 32.1 Red Cell Distribution Width 14.5 Platelet Count 307 Mean Platelet Volume 11.1 H Immature Granulocytes % 0.500 H Neutrophils % 76.7 Lymphocytes % 8.1 L Monocytes % 8.5 Eosinophils % 5.8 Basophils % 0.4 Nucleated Red Blood Cells % 0.0 Immature Granulocytes # 0.050 H Neutrophils # 7.2 Lymphocytes # 0.8 Monocytes # 0.8 Eosinophils # 0.5 Basophils # 0.0 Nucleated Red Blood Cells # 0.0 Sodium Level 134 L Potassium Level 4.1 Chloride Level 96 L Carbon Dioxide Level 33 H Anion Gap 5 # Blood Urea Nitrogen 31 H Creatinine 1.37 H Est Glomerular Filtrat Rate mL/min Glucose Level 163 Calcium Level 9.0 Total Bilirubin 0.2 Direct Bilirubin 0.00 Indirect Bilirubin 0.2 Aspartate Amino Transf (AST/SGOT) 22 Alanine Aminotransferase (ALT/SGPT) 23 Alkaline Phosphatase 120 Total Protein 6.2 Albumin 3.3 Globulin 2.90 Albumin/Globulin Ratio 1.13 Medications Medication Current Medications Allopurinol (Zyloprim) 100 mg BID PO Last administered on 09/16/18at 09:15; Admin Dose 100 MG; Start 09/12/18 at 21:00 Apixaban (Eliquis) 5 mg BID PO Last administered on 09/16/18at 09:15; Admin Dose 5 MG; Start 09/12/18 at 21:00 Atorvastatin Calcium (Lipitor) 10 mg QHS PO Last administered on 09/15/18at 20:49; Admin Dose 10 MG; Start 09/12/18 at 21:00 Furosemide (Lasix) 20 mg DAILY PO Last administered on 2/21/19at 09:15; Admin Dose 20 MG; Start 09/13/18 at 09:00 Levothyroxine Sodium (Synthroid) 112 mcg BEFORE BREAKFAST PO Last administered on 09/16/18 06:16; Admin Dose 112 MCG; Start 09/13/18 at 07:00 Metoprolol Tartrate (Lopressor) 50 mg BID PO Last administered on 09/16/18 09:16; Admin Dose 50 MG; Start 09/12/18 at 21:00 Pantoprazole (Protonix Tab) 40 mg DAILY PO Last administered on 09/16/18 09:15; Admin Dose 40 MG; Start 09/12/18 at 16:00 Losartan Potassium (Cozaar) 100 mg DAILY PO Last administered on 09/16/18 09:16; Admin Dose 100 MG; Start 09/13/18 at 09:00 Acetaminophen (Tylenol Tab) 650 mg Q6H PRN PO MILD PAIN(1-3)OR ELEVATED TEMP Last administered on 09/16/18 03:57; Admin Dose 650 MG; Start 09/12/18 at 16:30 Amiodarone HCl (Cordarone) 400 mg BID PO Last administered on 09/16/18 09:16; Admin Dose 400 MG; Start 09/13/18 at 10:00 Ipratropium [place] (Atrovent 0.02% (Neb)) 0.5 mg Q6H RESP THERAPY HHN Last administered on 09/16/18 08:29; Admin Dose 0.5 MG; Start 09/13/18 at 14:00 Nystatin (Nystatin Powder) 1 applic TID TOP Last administered on 09/16/18 09:14; Admin Dose 1 APPLIC; Start 09/14/18 at 21:00 Tramadol HCl (Ultram) 50 mg Q6H PRN PO MODERATE PAIN LEVEL 4-6; Start 09/15/18 at 11:00 JOSE LEVIN MD Sep 16, 2018 09:40
[2018-09-16] MEDS: DOCUSATE SODIUM 100 MG CAP PO SCH (11:24)
[2018-09-16] MEDS: SOD FERRIC GLUC COMPLX 125 MG in SOD CHLORIDE 0.9% 100 ML IVPB SCH (13:06)
--- NOTE | 2018-09-16 13:26 | CONS ---
Consult Date/Type/Reason Admit Date/Time Sep 12, 2018 at 14:22 Initial Consult Date 09/13/18 Type of Consultation: Rheum Requesting Provider: JANIE JENNINGS MD Date/Time of Note DATE: 09/16/18 TIME: 13:25 Subjective Much less left knee pain. No new other complaints. Objective Vitals Vital Signs Date Temp Pulse Resp B/P (MAP) Pulse Ox O2 O2 Flow FiO2 Time Delivery Rate 09/16/18 74 12:40 09/16/18 98.1 18 147/68 96 Nasal 11:30 (94) Cannula 09/16/18 2.0 09:00 09/16/18 21 08:30 Intake and Output 09/15/18 09/15/18 09/16/18 1515:00 23:00 07:00 IntakeIntake Total 0 ml 1000 ml 360 ml BalanceBalance 0 ml 1000 ml 360 ml Exam GENERAL: No acute distress, alert, oriented x3. SKIN: Without acute lesions or rashes. HEENT: Without acute oral or ocular lesions. NECK: Without lymphadenopathy. CHEST: Clear to auscultation. HEART: Regular rate and rhythm at present. ABDOMEN: Soft without masses or tenderness. EXTREMITIES: Minimal pedal edema. MUSCULOSKELETAL: Left knee with much less tenderness. Less or no swelling. . Other joints without synovitis. Results/Medications Result Diagram: 09/16/18 0509/16/18 0526 Results 24 hrs Laboratory Tests Test 09/16/18 05:26 09/16/18 10:00 White Blood Count 9.3 Red Blood Count 3.33 L Hemoglobin 9.9 L Hematocrit 30.8 L Mean Corpuscular Volume 92.5 Mean Corpuscular Hemoglobin 29.7 Mean Corpuscular Hemoglobin Concent 32.1 Red Cell Distribution Width 14.5 Platelet Count 307 Mean Platelet Volume 11.1 H Immature Granulocytes % 0.500 H Neutrophils % 76.7 Lymphocytes % 8.1 L Monocytes % 8.5 Eosinophils % 5.8 Basophils % 0.4 Nucleated Red Blood Cells % 0.0 Immature Granulocytes # 0.050 H Neutrophils # 7.2 Lymphocytes # 0.8 Monocytes # 0.8 Eosinophils # 0.5 Basophils # 0.0 Nucleated Red Blood Cells # 0.0 Sodium Level 134 L Potassium Level 4.1 Chloride Level 96 L Carbon Dioxide Level 33 H Anion Gap 5 # Blood Urea Nitrogen 31 H Creatinine 1.37 H Est Glomerular Filtrat Rate mL/min Glucose Level 163 Calcium Level 9.0 Total Bilirubin 0.2 Direct Bilirubin 0.00 Indirect Bilirubin 0.2 Aspartate Amino Transf (AST/SGOT) 22 Alanine Aminotransferase (ALT/SGPT) 23 Alkaline Phosphatase 120 Total Protein 6.2 Albumin 3.3 Globulin 2.90 Albumin/Globulin Ratio 1.13 Blood Gas Specimen Source Blood arterial Arterial Blood Date Drawn 09/16/2018 10:08:34 AM Arterial Blood pH (Temp corrected) 7.426 Arterial Blood pCO2 (Temp correct) 47.4 H Arterial Blood pO2 (Temp corrected) 59.7 L Arterial Blood HCO3 30.5 H Arterial Blood Base Excess 5.3 H Arterial Blood Oxygen Saturation 89.6 L Mikey Test ACCEPTAB Arterial Blood Gas Puncture Site Right Radial Arterial Blood Carboxyhemoglobin 0.3 Arterial Blood Methemoglobin 0 Blood Gas A-a O2 Differential 33.3 H Oxyhemoglobin Percent 89.3 L Blood Gas Temperature 37.0 Blood Gas Modality ROOM AIR FiO2 21.0 Blood Gas Notified Whom Blood Gas Notified Time 09/16/2018 10:16:51 AM Home Meds Reported Medications Furosemide* (Furosemide*) 20 Mg Tablet, 20 MG PO DAILY, #60 TAB HOLD IF SBP BELOW 110 09/12/18 Valsartan* (Diovan*) 160 Mg Tablet, 160 MG PO DAILY, TAB HOLD IF SBP BELOW 110 09/12/18 Metoprolol Tartrate* (Lopressor*) 50 Mg Tab, 50 MG PO BID, #60 TAB HOLD IF SBP BELOW 110 09/12/18 Atorvastatin Calcium (Atorvastatin Calcium) 10 Mg Tablet, 10 MG PO QHS, #30 TAB 09/12/18 Allopurinol* (Allopurinol*) 100 Mg Tablet, 100 MG PO BID, TAB 09/12/18 Apixaban* (Eliquis*) 5 Mg Tablet, 5 MG PO BID, TAB 09/12/18 Cholecalciferol* (Vitamin D3*) 1,000 Unit Tablet, 1000 UNIT PO DAILY, TAB 09/12/18 Cyanocobalamin* (Vitamin B12*) 500 Mcg Tab, 1000 MCG PO DAILY, TAB 09/12/18 Magnesium Oxide* (Magnesium Oxide*) 400 Mg Tablet, 400 MG PO BID, TAB 09/12/18 Pantoprazole* (Protonix*) 40 Mg Tablet.dr, 40 MG PO DAILY, TAB 09/12/18 Levothyroxine Sodium* (Levoxyl*) 112 Mcg Tablet, 112 MCG PO BEFORE BREAKFAST, #30 TAB 09/12/18 Discontinued Reported Medications Calcium Carbonate (Oysco-500) 500 Mg Tablet, 500 MG PO BID, TAB 09/12/18 Apixaban* (Eliquis*) 5 Mg Tablet, 5 MG PO BID, TAB 10/06/16 Calcium Carbonate ([id number]) 500 Mg Tablet, 500 MG PO BID, TAB 10/06/16 Metoprolol Succinate* (Toprol XL*) 50 Mg Tab.er.24h, 50 MG PO BID, TAB 03/21/14 Levothyroxine Sodium* (Synthroid*) 112 Mcg Tablet, 112 MCG PO AC BREAKFAST, TAB 03/21/14 Atorvastatin (Lipitor) 10 Mg Tablet, 10 MG PO HS 04/30/12 Discontinued Scripts Magnesium Chloride* (Mag 64*) 64 Mg Tabsr, 64 MG PO BID for 30 Days, TAB Prov:JOSE LEVIN MD 10/14/16 Zolpidem Tartrate (Ambien Lai) 5 Mg Tablet, 5 MG PO QHS PRN for SLEEP for 30 Days, TAB Prov:JSOE LEVIN MD 10/14/16 Valsartan (Valsartan) 160 Mg Tablet, 160 MG PO DAILY for 30 Days, TAB Prov:JOSE LEVIN MD 10/14/16 Salmeterol Xinaf/Fluticasone* (Advair*) 250-50 Diskus Inhaler, 1 INH INH BID for 30 Days Prov:JOSE LEVIN MD 10/14/16 Pantoprazole* (Pantoprazole*) 40 Mg Tablet., 40 MG PO DAILY@06 for 30 Days Prov:JOSE LEVIN MD 10/14/16 Furosemide* (Furosemide*) 40 Mg Tablet, 40 MG PO DAILY for 30 Days, TAB Prov:JOSE LEVIN MD 10/14/16 Folic Acid* (Folic Acid*) 1 Mg Tablet, 1 MG PO DAILY for 30 Days, TAB Prov:JOSE LEVIN MD 10/14/16 Docusate Sodium (Dok) 100 Mg Capsule, 100 MG PO Q12H PRN for CONSTIPATION for 30 Days, CAP Prov:JOSE LEVIN MD 10/14/16 Cyanocobalamin* (Vitamin B12*) 500 Mcg Tab, 1000 MCG PO DAILY for 30 Days, TAB Prov:JOSE LEVIN MD 10/14/16 Colchicine* (Colcrys*) 0.6 Mg Tablet, 0.6 MG PO DAILY for 30 Days, TAB Prov:JOSE LEVIN MD 10/14/16 Cholecalciferol (Vitamin D3) (VITAMIN D-3) 2,000 Unit Capsule, 2000 UNIT PO DAILY for 30 Days, CAP Prov:JOSE LEVIN MD 10/14/16 Medications Current Medications Allopurinol (Zyloprim) 100 mg BID PO Last administered on 09/16/18 09:15; Admin Dose 100 MG; Start 09/12/18 at 21:00 Apixaban (Eliquis) 5 mg BID PO Last administered on 09/16/18 09:15; Admin Dose 5 MG; Start 09/12/18 at 21:00 Atorvastatin Calcium (Lipitor) 10 mg QHS PO Last administered on 09/15/18 20:49; Admin Dose 10 MG; Start 09/12/18 at 21:00 Furosemide (Lasix) 20 mg DAILY PO Last administered on 09/16/18 09:15; Admin Dose 20 MG; Start 09/13/18 at 09:00 Levothyroxine Sodium (Synthroid) 112 mcg BEFORE BREAKFAST PO Last administered on 09/16/18 06:16; Admin Dose 112 MCG; Start 09/13/18 at 07:00 Metoprolol Tartrate (Lopressor) 50 mg BID PO Last administered on 09/16/18 09:16; Admin Dose 50 MG; Start 09/12/18 at 21:00 Pantoprazole (Protonix Tab) 40 mg DAILY PO Last administered on 09/16/18 09:15; Admin Dose 40 MG; Start 09/12/18 at 16:00 Losartan Potassium (Cozaar) 100 mg DAILY PO Last administered on 09/16/18 09: 16; Admin Dose 100 MG; Start 09/13/18 at 09:00 Acetaminophen (Tylenol Tab) 650 mg Q6H PRN PO MILD PAIN(1-3)OR ELEVATED TEMP Last administered on 09/16/18 03:57; Admin Dose 650 MG; Start 09/12/18 at 16:30 Amiodarone HCl (Cordarone) 400 mg BID PO Last administered on 09/16/18 09:16; Admin Dose 400 MG; Start 09/13/18 at 10:00 Ipratropium [place] (Atrovent 0.02% (Neb)) 0.5 mg Q6H RESP THERAPY HHN Last administered on 09/16/18 08:29; Admin Dose 0.5 MG; Start 09/13/18 at 14:00 Nystatin (Nystatin Powder) 1 applic TID TOP Last administered on 09/16/18 13:06; Admin Dose 1 APPLIC; Start 09/14/18 at 21:00 Tramadol HCl (Ultram) 50 mg Q6H PRN PO MODERATE PAIN LEVEL 4-6; Start 09/15/18 at 11:00 Ferric Sodium Gluconate Complex 125 mg/Sodium Chloride 110 ml @ 110 mls/hr DAILY@1300 IVPB Last administered on 09/16/18 13:06; Admin Dose 110 MLS/HR; Start 09/16/18 at 13:00; Stop 09/20/18 at 13:59 Docusate Sodium (Colace) 200 mg DAILY PO Last administered on 09/16/18 11:24; Admin Dose 200 MG; Start 09/16/18 at 10:30 Assessment/Plan Hospital Course (Demo Recall) ASSESSMENT: 1. Left knee pain likely due to osteoarthritis with exacerbation triggered by position. No evidence of acute gout or other inflammatory arthropathy at present. 2. Paroxysmal atrial fibrillation. 3. Hypertension. PLAN: Continue present therapy. ONEL CHAUDHARY MD Sep 16, 2018 13:26
[2018-09-16] MEDS: ATORVASTATIN 10 MG TAB PO SCH (21:57)
[2018-09-17] VITALS (13 sets, daily range): BP systolic 124–163; BP diastolic 58–72; PULSE 65–84; RESP 17–22
[2018-09-17] MEDS: IPRATROPIUM (NEB) 0.5 MG/2.5 ML AMP HHN SCH ×4 (01:22→19:42)
[2018-09-17] MEDS: LEVOTHYROXINE 112 MCG TAB PO SCH (06:38)
--- NOTE | 2018-09-17 08:20 | PN ---
Date/Time of Note Date/Time of Note DATE: 09/17/18 TIME: 08:18 Assessment/Plan VTE Prophylaxis Risk score (from Ns)>0 risk: 5 SCD applied (from Ns): Yes Pharmacological prophylaxis: apixaban Lines/Catheters IV Catheter Type (from [facility]): Saline Lock Urinary Cath still in place: No Assessment/Plan Assessment/Plan 1. No rec of SVT 2. Anemia, stable, stool ob pending 3. BP sl inc, will add amlodipine 4. Slight decline in renal fx, will stop diuretic 5. Mild hypoxemia sec atelectasis (immobility) 6. Await case management eval-->ecf for rehab Result Diagram: 09/17/1852609/17/18526 Results 24hrs Laboratory Tests Test 09/16/18 10:00 09/17/18 05:27 Blood Gas Specimen Source Blood arterial Arterial Blood Date Drawn 09/16/2018 10:08:34 AM Arterial Blood pH (Temp corrected) 7.426 Arterial Blood pCO2 (Temp correct) 47.4 H Arterial Blood pO2 (Temp corrected) 59.7 L Arterial Blood HCO3 30.5 H Arterial Blood Base Excess 5.3 H Arterial Blood Oxygen Saturation 89.6 L Mikey Test ACCEPTAB Arterial Blood Gas Puncture Site Right Radial Arterial Blood Carboxyhemoglobin 0.3 Arterial Blood Methemoglobin 0 Blood Gas A-a O2 Differential 33.3 H Oxyhemoglobin Percent 89.3 L Blood Gas Temperature 37.0 Blood Gas Modality ROOM AIR FiO2 21.0 Blood Gas Notified Whom Blood Gas Notified Time 09/16/2018 10:16:51 AM White Blood Count 11.1 H Red Blood Count 3.36 L Hemoglobin 10.1 L Hematocrit 31.5 L Mean Corpuscular Volume 93.8 Mean Corpuscular Hemoglobin 30.1 Mean Corpuscular Hemoglobin Concent 32.1 Red Cell Distribution Width 14.3 Platelet Count 352 Mean Platelet Volume 11.0 H Immature Granulocytes % 0.500 H Neutrophils % 80.5 H Lymphocytes % 6.6 L Monocytes % 6.9 Eosinophils % 5.1 Basophils % 0.4 Nucleated Red Blood Cells % 0.0 Immature Granulocytes # 0.060 H Neutrophils # 9.0 H Lymphocytes # 0.7 L Monocytes # 0.8 Eosinophils # 0.6 H Basophils # 0.0 Nucleated Red Blood Cells # 0.0 Sodium Level 136 Potassium Level 4.2 Chloride Level 95 L Carbon Dioxide Level 31 Anion Gap 10 # Blood Urea Nitrogen 33 H Creatinine 1.41 H Est Glomerular Filtrat Rate mL/min Glucose Level 170 Calcium Level 9.1 Phosphorus Level 4.1 Magnesium Level 1.8 Subjective 24 Hr Interval Summary Constitutional: other (uchanged fatigue) Respiratory: shortness of breath Cardiovascular: No chest pain Gastrointestinal: no complaints Genitourinary: no complaints Musculoskeletal: no complaints Exam/Review of Systems Exam Vitals Vital Signs Date Temp Pulse Resp B/P (MAP) Pulse Ox O2 O2 Flow FiO2 Time Delivery Rate 09/17/18 98.0 84 18 163/72 96 07:18 (102) 09/17/18 Nasal 2.0 03:39 Cannula 09/16/18 08:30 Intake and Output 09/16/18 09/16/18 09/17/18 1515:00 23:00 07:00 IntakeIntake Total 600 ml BalanceBalance 600 ml Neck: No jvd Respiratory: clear to auscultation Cardiovascular: regular rate and rhythm Gastrointestinal: soft Results Results 24hrs Laboratory Tests Test 09/16/18 10:00 09/17/18 05:27 Blood Gas Specimen Source Blood arterial Arterial Blood Date Drawn 09/16/2018 10:08:34 AM Arterial Blood pH (Temp corrected) 7.426 Arterial Blood pCO2 (Temp correct) 47.4 H Arterial Blood pO2 (Temp corrected) 59.7 L Arterial Blood HCO3 30.5 H Arterial Blood Base Excess 5.3 H Arterial Blood Oxygen Saturation 89.6 L Mikey Test ACCEPTAB Arterial Blood Gas Puncture Site Right Radial Arterial Blood Carboxyhemoglobin 0.3 Arterial Blood Methemoglobin 0 Blood Gas A-a O2 Differential 33.3 H Oxyhemoglobin Percent 89.3 L Blood Gas Temperature 37.0 Blood Gas Modality ROOM AIR FiO2 21.0 Blood Gas Notified Whom Blood Gas Notified Time 09/16/2018 10:16:51 AM White Blood Count 11.1 H Red Blood Count 3.36 L Hemoglobin 10.1 L Hematocrit 31.5 L Mean Corpuscular Volume 93.8 Mean Corpuscular Hemoglobin 30.1 Mean Corpuscular Hemoglobin Concent 32.1 Red Cell Distribution Width 14.3 Platelet Count 352 Mean Platelet Volume 11.0 H Immature Granulocytes % 0.500 H Neutrophils % 80.5 H Lymphocytes % 6.6 L Monocytes % 6.9 Eosinophils % 5.1 Basophils % 0.4 Nucleated Red Blood Cells % 0.0 Immature Granulocytes # 0.060 H Neutrophils # 9.0 H Lymphocytes # 0.7 L Monocytes # 0.8 Eosinophils # 0.6 H Basophils # 0.0 Nucleated Red Blood Cells # 0.0 Sodium Level 136 Potassium Level 4.2 Chloride Level 95 L Carbon Dioxide Level 31 Anion Gap 10 # Blood Urea Nitrogen 33 H Creatinine 1.41 H Est Glomerular Filtrat Rate mL/min Glucose Level 170 Calcium Level 9.1 Phosphorus Level 4.1 Magnesium Level 1.8 Medications Medication Current Medications Allopurinol (Zyloprim) 100 mg BID PO Last administered on 09/16/18 21:58; Admin Dose 100 MG; Start 09/12/18 at 21:00 Apixaban (Eliquis) 5 mg BID PO Last administered on 09/16/18 21:57; Admin Dose 5 MG; Start 09/12/18 at 21:00 Atorvastatin Calcium (Lipitor) 10 mg QHS PO Last administered on 09/16/18 21:57; Admin Dose 10 MG; Start 09/12/18 at 21:00 Furosemide (Lasix) 20 mg DAILY PO Last administered on 09/16/18 09:15; Admin Dose 20 MG; Start 09/13/18 at 09:00 Levothyroxine Sodium (Synthroid) 112 mcg BEFORE BREAKFAST PO Last administered on 09/17/18 06:38; Admin Dose 112 MCG; Start 09/13/18 at 07:00 Metoprolol Tartrate (Lopressor) 50 mg BID PO Last administered on 09/16/18 22:00; Admin Dose 50 MG; Start 09/12/18 at 21:00 Pantoprazole (Protonix Tab) 40 mg DAILY PO Last administered on 09/16/18 09:15; Admin Dose 40 MG; Start 09/12/18 at 16:00 Losartan Potassium (Cozaar) 100 mg DAILY PO Last administered on 09/16/18 09:16; Admin Dose 100 MG; Start 09/13/18 at 09:00 Acetaminophen (Tylenol Tab) 650 mg Q6H PRN PO MILD PAIN(1-3)OR ELEVATED TEMP Last administered on 09/16/18 03:57; Admin Dose 650 MG; Start 09/12/18 at 16:30 Amiodarone HCl (Cordarone) 400 mg BID PO Last administered on 09/16/18 22:01; Admin Dose 400 MG; Start 09/13/18 at 10:00 Ipratropium [place] (Atrovent 0.02% (Neb)) 0.5 mg Q6H RESP THERAPY HHN Last administered on 09/16/18 20:06; Admin Dose 0.5 MG; Start 09/13/18 at 14:00 Nystatin (Nystatin Powder) 1 applic TID TOP Last administered on 09/16/18at 22:05; Admin Dose 1 APPLIC; Start 09/14/18 at 21:00 Tramadol HCl (Ultram) 50 mg Q6H PRN PO MODERATE PAIN LEVEL 4-6; Start 09/15/18 at 11:00 Ferric Sodium Gluconate Complex 125 mg/Sodium Chloride 110 ml @ 110 mls/hr DAILY@1300 IVPB Last administered on 09/16/18at 13:06; Admin Dose 110 MLS/HR; Start 09/16/18 at 13:00; Stop 09/20/18 at 13:59 Docusate Sodium (Colace) 200 mg DAILY PO Last administered on 09/16/18at 11:24; Admin Dose 200 MG; Start 09/16/18 at 10:30 JOSE LEVIN MD Sep 17, 2018 08:20
[2018-09-17] MEDS: ACETAMINOPHEN 325 MG TAB PO PRN (08:30)
[2018-09-17] MEDS: LOSARTAN 50 MG TAB PO SCH (08:31)
[2018-09-17] MEDS: PANTOPRAZOLE (EC) 40 MG TAB PO SCH (08:31)
[2018-09-17] MEDS: DOCUSATE SODIUM 100 MG CAP PO SCH (08:31)
[2018-09-17] MEDS: METOPROLOL 50 MG TAB PO SCH ×2 (08:32→21:00)
[2018-09-17] MEDS: AMIODARONE 200 MG TAB PO SCH ×2 (08:32→20:59)
[2018-09-17] MEDS: APIXABAN 5 MG TABLET PO SCH ×2 (08:32→21:00)
[2018-09-17] MEDS: ALLOPURINOL 100 MG TAB PO SCH ×2 (08:32→20:59)
[2018-09-17] MEDS: NYSTATIN 30 GM POWDER BTL TOP SCH ×3 (08:34→21:00)
[2018-09-17] MEDS: AMLODIPINE 5 MG TAB PO SCH (08:38)
[2018-09-17] MEDS ORDERED: DOCUSATE SODIUM 100 MG CAP PO SCH (09:00)
[2018-09-17] MEDS: traMADol 50 MG TAB PO PRN (10:07)
--- NOTE | 2018-09-17 10:15 | CONS ---
Assessment/Plan Assessment/Plan Hospital Course (Demo Recall) Impression/Plan: - SVT- very fast rate 200s at presentation. suspect aflutter given lack of r esponse to adenosine, now s/p shock x 1 with NSR. had brief non sustained run HOD #1. but no recurrence on amiodarone will reduce dose to 200mg po bid x 2 weeks then 200mg po daily until outpatient follow up. cont metoprolol. cont apixaban, would cont 5mg po bid dose given Cr< 1.5 and Wt > 60kg. also primary indication is for DVT - NSTEMI- likely type 2 from demand of SVT + cardioversion. no current chest pain. does have CAD RF and known cor calcium on ct. stress result negative for ischemia, low risk. no further testing needed. d/w family - pericardial effusion- chronic mild-moderate, stable no evidence of HD significance. no further testing recommended at this time. - dvt hx- on anticoag Consultation Date/Type/Reason Admit Date/Time Sep 12, 2018 at 14:22 Initial Consult Date 09/13/18 Type of Consult Cardiology Requesting Provider: JANIE JENNINGS MD Date/Time of Note DATE: 09/17/18 TIME: 10:04 24 HR Interval Summary Free Text/Dictation no acute events. no cp/palpitations/sob tele reviewed: nsr no afib Detailed Summary Eyes: no complaints ENT: no complaints Respiratory: no complaints Cardiovascular: no complaints Exam/Review of Systems Exam Vitals Vital Signs Date Temp Pulse Resp B/P (MAP) Pulse Ox O2 O2 Flow FiO2 Time Delivery Rate 09/17/18 84 09:00 09/17/18 98.0 18 163/72 96 07:18 (102) 09/17/18 Nasal 2.0 03:39 Cannula 09/16/18 21 08:30 Intake and Output 09/16/18 09/16/18 09/17/18 1515:00 23:00 07:00 IntakeIntake Total 600 ml 550 ml BalanceBalance 600 ml 550 ml Exam Constitutional: alert, oriented, well developed Psych: nl mood/affect, no complaints Head: normocephalic Eyes: EOMI, nl conjunctiva ENMT: mucosa pink and moist, nl nasal mucosa & septum Neck: non-tender, supple, No jvd Respiratory: clear to auscultation, normal air movement Cardiovascular: nl pulses, regular rate and rhythm, systolic murmur Gastrointestinal: non-tender, soft Musculoskeletal: normal bulk tone Extremities: normal pulses, No calf tenderness Neurological: [employer]NAG[employer] LIAISON II-XII intact, nl mental status, nl speech, nl strength Skin: nl turgor, No rash or lesions Results Result Diagram: 09/17/1852609/17/18526 Results 24hrs Laboratory Tests Test 09/17/18 05:27 White Blood Count 11.1 H Red Blood Count 3.36 L Hemoglobin 10.1 L Hematocrit 31.5 L Mean Corpuscular Volume 93.8 Mean Corpuscular Hemoglobin 30.1 Mean Corpuscular Hemoglobin Concent 32.1 Red Cell Distribution Width 14.3 Platelet Count 352 Mean Platelet Volume 11.0 H Immature Granulocytes % 0.500 H Neutrophils % 80.5 H Lymphocytes % 6.6 L Monocytes % 6.9 Eosinophils % 5.1 Basophils % 0.4 Nucleated Red Blood Cells % 0.0 Immature Granulocytes # 0.060 H Neutrophils # 9.0 H Lymphocytes # 0.7 L Monocytes # 0.8 Eosinophils # 0.6 H Basophils # 0.0 Nucleated Red Blood Cells # 0.0 Sodium Level 136 Potassium Level 4.2 Chloride Level 95 L Carbon Dioxide Level 31 Anion Gap 10 # Blood Urea Nitrogen 33 H Creatinine 1.41 H Est Glomerular Filtrat Rate mL/min Glucose Level 170 Calcium Level 9.1 Phosphorus Level 4.1 Magnesium Level 1.8 Medications Medication Current Medications Allopurinol (Zyloprim) 100 mg BID PO Last administered on 09/17/18 08:32; Admin Dose 100 MG; Start 09/12/18 at 21:00 Apixaban (Eliquis) 5 mg BID PO Last administered on 09/17/18 08:32; Admin Dose 5 MG; Start 09/12/18 at 21:00 Atorvastatin Calcium (Lipitor) 10 mg QHS PO Last administered on 09/16/18 21:57; Admin Dose 10 MG; Start 09/12/18 at 21:00 Levothyroxine Sodium (Synthroid) 112 mcg BEFORE BREAKFAST PO Last administered on 09/17/18 06:38; Admin Dose 112 MCG; Start 09/13/18 at 07:00 Metoprolol Tartrate (Lopressor) 50 mg BID PO Last administered on 09/17/18 08:32; Admin Dose 50 MG; Start 09/12/18 at 21:00 Pantoprazole (Protonix Tab) 40 mg DAILY PO Last administered on 09/17/18 08:31; Admin Dose 40 MG; Start 09/12/18 at 16:00 Losartan Potassium (Cozaar) 100 mg DAILY PO Last administered on 09/17/18 08:31; Admin Dose 100 MG; Start 09/13/18 at 09:00 Acetaminophen (Tylenol Tab) 650 mg Q6H PRN PO MILD PAIN(1-3)OR ELEVATED TEMP Last administered on 09/17/18 08:30; Admin Dose 650 MG; Start 09/12/18 at 16:30 Amiodarone HCl (Cordarone) 400 mg BID PO Last administered on 09/17/18 08:32; Admin Dose 400 MG; Start 09/13/18 at 10:00 Ipratropium [place] (Atrovent 0.02% (Neb)) 0.5 mg Q6H RESP THERAPY HHN Last administered on 09/16/18 20:06; Admin Dose 0.5 MG; Start 09/13/18 at 14:00 Nystatin (Nystatin Powder) 1 applic TID TOP Last administered on 09/17/18 08:34; Admin Dose 1 APPLIC; Start 09/14/18 at 21:00 Tramadol HCl (Ultram) 50 mg Q6H PRN PO MODERATE PAIN LEVEL 4-6; Start 09/15/18 at 11:00 Ferric Sodium Gluconate Complex 125 mg/Sodium Chloride 110 ml @ 110 mls/hr DAILY@1300 IVPB Last administered on 09/16/18 13:06; Admin Dose 110 MLS/HR; Start 09/16/18 at 13:00; Stop 09/20/18 at 13:59 Docusate Sodium (Colace) 200 mg DAILY PO Last administered on 09/17/18 08:31; Admin Dose 200 MG; Start 09/16/18 at 10:30 Amlodipine Besylate (Norvasc) 5 mg DAILY PO Last administered on 09/17/18 08:38; Admin Dose 5 MG; Start 09/17/18 at 09:00 LUDWIN DEVLIN Sep 17, 2018 10:14
[2018-09-17] MEDS: SOD FERRIC GLUC COMPLX 125 MG in SOD CHLORIDE 0.9% 100 ML IVPB SCH (13:16)
[2018-09-17] MEDS: ATORVASTATIN 10 MG TAB PO SCH (20:59)
[2018-09-18] VITALS (10 sets, daily range): BP systolic 115–128; BP diastolic 54–64; PULSE 66–78; RESP 18
[2018-09-18] MEDS: IPRATROPIUM (NEB) 0.5 MG/2.5 ML AMP HHN SCH ×4 (02:00→20:21)
[2018-09-18] MEDS: ACETAMINOPHEN 325 MG TAB PO PRN (04:04)
[2018-09-18] MEDS: traMADol 50 MG TAB PO PRN (05:43)
[2018-09-18] MEDS: LEVOTHYROXINE 112 MCG TAB PO SCH (05:43)
[2018-09-18] MEDS: AMIODARONE 200 MG TAB PO SCH ×2 (08:33→21:04)
[2018-09-18] MEDS: PANTOPRAZOLE (EC) 40 MG TAB PO SCH (08:33)
[2018-09-18] MEDS: APIXABAN 5 MG TABLET PO SCH ×2 (08:33→21:04)
[2018-09-18] MEDS: AMLODIPINE 5 MG TAB PO SCH (08:34)
[2018-09-18] MEDS: NYSTATIN 30 GM POWDER BTL TOP SCH ×3 (08:34→21:05)
[2018-09-18] MEDS: DOCUSATE SODIUM 100 MG CAP PO SCH (08:34)
[2018-09-18] MEDS: ALLOPURINOL 100 MG TAB PO SCH ×2 (08:34→21:04)
[2018-09-18] MEDS: METOPROLOL 50 MG TAB PO SCH ×2 (08:35→21:04)
[2018-09-18] MEDS: LOSARTAN 50 MG TAB PO SCH (12:17)
[2018-09-18] MEDS: SOD FERRIC GLUC COMPLX 125 MG in SOD CHLORIDE 0.9% 100 ML IVPB SCH (12:19)
--- NOTE | 2018-09-18 15:20 | PN ---
Date/Time of Note Date/Time of Note DATE: 09/18/18 TIME: 15:12 Subjective Patient endorses being very tired today. Received tramadol last night and niece attributed to that. She has slowed mentation per daughter. Denies fevers, chills, nausea, vomiting, chest pain, sob. Has had cough today. Denies abdominal pain. Does endorse constipation. Patient did desaturate today after breathing treatment, requiring 2 L NC to sat. Objective Vitals Vital Signs Date Temp Pulse Resp B/P (MAP) Pulse Ox O2 O2 Flow FiO2 Time Delivery Rate 09/18/18 98.3 70 18 115/55 96 15:08 (75) 09/18/18 2.0 14:12 09/18/18 Nasal 14:11 Cannula 09/17/18 13:57 Intake and Output 09/17/18 09/17/18 09/18/18 1414:59 22:59 06:59 IntakeIntake Total 550 ml 530 ml 400 ml BalanceBalance 550 ml 530 ml 400 ml Gen-NAD HEENT-op clear, mmm CV-RRR,nm1 s/1/s2 Pulm-CTAB on anterior exam. No respiratory distress. Not using accessory muscles. Abd-soft, nt/nd, +BS Ext-no c/c/e Neuro-CN II-XII intact. moving all extremities. Follows commands. alert and oriented to person, place, time, and situation. Slowed cognition/mentation Results Result Diagram: 09/18/18 0510 09/18/18 0510 Medications Medications Current Medications Allopurinol (Zyloprim) 100 mg BID PO Last administered on 09/18/18at 08:34; Admin Dose 100 MG; Start 09/12/18 at 21:00 Apixaban (Eliquis) 5 mg BID PO Last administered on 09/18/18at 08:33; Admin Dose 5 MG; Start 09/12/18 at 21:00 Atorvastatin Calcium (Lipitor) 10 mg QHS PO Last administered on 09/17/18at 20:59; Admin Dose 10 MG; Start 09/12/18 at 21:00 Levothyroxine Sodium (Synthroid) 112 mcg BEFORE BREAKFAST PO Last administered on 09/18/18at 05:43; Admin Dose 112 MCG; Start 09/13/18 at 07:00 Metoprolol Tartrate (Lopressor) 50 mg BID PO Last administered on 09/18/18 08:35; Admin Dose 50 MG; Start 09/12/18 at 21:00 Pantoprazole (Protonix Tab) 40 mg DAILY PO Last administered on 09/18/18 08:33; Admin Dose 40 MG; Start 09/12/18 at 16:00 Losartan Potassium (Cozaar) 100 mg DAILY PO Last administered on 09/18/18 12:17; Admin Dose 100 MG; Start 09/13/18 at 09:00 Acetaminophen (Tylenol Tab) 650 mg Q6H PRN PO MILD PAIN(1-3)OR ELEVATED TEMP Last administered on 09/18/18 04:04; Admin Dose 650 MG; Start 09/12/18 at 16:30 Ipratropium [place] (Atrovent 0.02% (Neb)) 0.5 mg Q6H RESP THERAPY HHN Last administered on 09/18/18 14:08; Admin Dose 0.5 MG; Start 09/13/18 at 14:00 Nystatin (Nystatin Powder) 1 applic TID TOP Last administered on 09/18/18 12:17; Admin Dose 1 APPLIC; Start 09/14/18 at 21:00 Tramadol HCl (Ultram) 50 mg Q6H PRN PO MODERATE PAIN LEVEL 4-6 Last administered on 09/18/18 05:43; Admin Dose 50 MG; Start 09/15/18 at 11:00 Ferric Sodium Gluconate Complex 125 mg/Sodium Chloride 110 ml @ 110 mls/hr DAILY@1300 IVPB Last administered on 09/18/18 12:19; Admin Dose 110 MLS/HR; Start 09/16/18 at 13:00; Stop 09/20/18 at 13:59 Docusate Sodium (Colace) 200 mg DAILY PO Last administered on 09/18/18 08:34; Admin Dose 200 MG; Start 09/16/18 at 10:30 Amlodipine Besylate (Norvasc) 5 mg DAILY PO Last administered on 09/18/18 08:34; Admin Dose 5 MG; Start 09/17/18 at 09:00 Amiodarone HCl (Cordarone) 200 mg BID PO Last administered on 09/18/18 08:33; Admin Dose 200 MG; Start 09/17/18 at 21:00 VTE Prophylaxis Risk score (from Ns)>0 risk: 5 SCD applied (from [facility]): Yes Pharmacological prophylaxis: apixaban Lines/Catheters IV Catheter Type: Peripheral IV Mcgee in Place: No Assessment/Plan Hospital Course 88 y/o female pmh HTN, pa fib, hypothyroidism, h/o DVT, HLD, osteoporosis, gout, admitted 09/12/2018 w/ SVT requiring cardioversion. Assessment/Plan #desaturation-unclear etiology. Could be due to oversedation -cxr -abg -supplemental 02 -nebs prn #slowed mentation-unlikely CVA, moving all extremities, CN intact -minimize sedating meds, will stop tramadol -ctm #SVT-s/p cardioversion, thought to be aflutter -eliquis 5mg po BID -amiodarone #Pafib -eliquis, rate control #HLD -home meds #hypothyroidism -home meds #gout -allopurinol #HTN- -home meds #debility -continue PT, will need PT at SNF when medically stable for discharge. TARSHA CHEUNG MD Sep 18, 2018 15:20
[2018-09-18] MEDS ORDERED: VITAMIN A & D 5 GM OINT PACKET TOP ONE (15:46)
[2018-09-18] MEDS: ATORVASTATIN 10 MG TAB PO SCH (21:04)
[2018-09-19] VITALS (11 sets, daily range): BP systolic 111–175; BP diastolic 61–81; PULSE 68–90; RESP 16–20
[2018-09-19] MEDS: IPRATROPIUM (NEB) 0.5 MG/2.5 ML AMP HHN SCH ×4 (01:46→19:55)
[2018-09-19] MEDS: LEVOTHYROXINE 112 MCG TAB PO SCH (07:04)
[2018-09-19] MEDS: DOCUSATE SODIUM 100 MG CAP PO SCH (08:13)
[2018-09-19] MEDS: PANTOPRAZOLE (EC) 40 MG TAB PO SCH (08:14)
[2018-09-19] MEDS: AMIODARONE 200 MG TAB PO SCH ×2 (08:14→22:36)
[2018-09-19] MEDS: APIXABAN 5 MG TABLET PO SCH ×2 (08:14→22:36)
[2018-09-19] MEDS: ALLOPURINOL 100 MG TAB PO SCH ×2 (08:14→22:36)
[2018-09-19] MEDS: LOSARTAN 50 MG TAB PO SCH (08:14)
[2018-09-19] MEDS: METOPROLOL 50 MG TAB PO SCH ×2 (08:15→22:36)
[2018-09-19] MEDS: AMLODIPINE 5 MG TAB PO SCH (08:15)
[2018-09-19] MEDS: SOD CHLORIDE 0.9% 1,000 ML IV SCH ×2 (08:15→17:28)
[2018-09-19] MEDS: NYSTATIN 30 GM POWDER BTL TOP SCH ×3 (08:16→22:37)
--- NOTE | 2018-09-19 09:16 | PN ---
Date/Time of Note Date/Time of Note DATE: 09/19/18 TIME: 09:11 Subjective Patient feels more awake and clear from mental standpoint today. Endorses constipation. Hasn't had BM in days. No overnight events. Has remained on 2 L NC. CXR from yesterday negative. Patient denies fevers, chills, nausea, vomiting, diarrhea, constipation, abdominal pain. Objective Vitals Vital Signs Date Temp Pulse Resp B/P (MAP) Pulse Ox O2 O2 Flow FiO2 Time Delivery Rate 09/19/18 88 09:01 09/19/18 96 2.0 08:45 09/19/18 20 Nasal 08:45 Cannula 09/19/18 154/70 08:13 (98) 09/19/18 98.3 07:42 09/17/18 21 13:57 Intake and Output 09/18/18 09/18/18 09/19/18 1515:00 23:00 07:00 IntakeIntake Total 450 ml 300 ml BalanceBalance 450 ml 300 ml Gen-NAD HEENT-op clear, mmm CV-RRR,nm1 s/1/s2 Pulm-CTAB. No respiratory distress. Not using accessory muscles. mild wheezes lower lung schuster. Abd-soft, nt/nd, +BS Ext-no c/c/e Neuro-CN II-XII intact. moving all extremities. Follows commands. alert and oriented to person, place, time, and situation. Cognition improved. Results Result Diagram: 09/19/1852709/19/18527 Medications Medications Current Medications Allopurinol (Zyloprim) 100 mg BID PO Last administered on 09/19/18 08:14; Admin Dose 100 MG; Start 09/12/18 at 21:00 Apixaban (Eliquis) 5 mg BID PO Last administered on 09/19/18 08:14; Admin Dose 5 MG; Start 09/12/18 at 21:00 Atorvastatin Calcium (Lipitor) 10 mg QHS PO Last administered on 09/18/18 21:04; Admin Dose 10 MG; Start 09/12/18 at 21:00 Levothyroxine Sodium (Synthroid) 112 mcg BEFORE BREAKFAST PO Last administered on 09/19/18 07:04; Admin Dose 112 MCG; Start 09/13/18 at 07:00 Metoprolol Tartrate (Lopressor) 50 mg BID PO Last administered on 09/19/18 08:15; Admin Dose 50 MG; Start 09/12/18 at 21:00 Pantoprazole (Protonix Tab) 40 mg DAILY PO Last administered on 09/19/18 08: 14; Admin Dose 40 MG; Start 09/12/18 at 16:00 Losartan Potassium (Cozaar) 100 mg DAILY PO Last administered on 09/19/18 08:14; Admin Dose 100 MG; Start 09/13/18 at 09:00 Acetaminophen (Tylenol Tab) 650 mg Q6H PRN PO MILD PAIN(1-3)OR ELEVATED TEMP Last administered on 09/18/18 04:04; Admin Dose 650 MG; Start 09/12/18 at 16:30 Ipratropium [place] (Atrovent 0.02% (Neb)) 0.5 mg Q6H RESP THERAPY HHN Last administered on 09/19/18 08:42; Admin Dose 0.5 MG; Start 09/13/18 at 14:00 Nystatin (Nystatin Powder) 1 applic TID TOP Last administered on 09/19/18 08:16; Admin Dose 1 APPLIC; Start 09/14/18 at 21:00 Ferric Sodium Gluconate Complex 125 mg/Sodium Chloride 110 ml @ 110 mls/hr DAILY@1300 IVPB Last administered on 09/18/18 12:19; Admin Dose 110 MLS/HR; Start 09/16/18 at 13:00; Stop 09/20/18 at 13:59 Docusate Sodium (Colace) 200 mg DAILY PO Last administered on 09/19/18 08:13; Admin Dose 200 MG; Start 09/16/18 at 10:30 Amlodipine Besylate (Norvasc) 5 mg DAILY PO Last administered on 09/19/18 08:15; Admin Dose 5 MG; Start 09/17/18 at 09:00 Amiodarone HCl (Cordarone) 200 mg BID PO Last administered on 09/19/18 08:14; Admin Dose 200 MG; Start 09/17/18 at 21:00 Sodium Chloride 1,000 ml @ 100 mls/hr Q10H IV Last administered on 09/19/18 08:15; Admin Dose 100 MLS/HR; Start 09/19/18 at 08:00; Stop 09/19/18 at 19:59 VTE Prophylaxis [place] [facility] risk: 6 SCD applied [place] [facility] Yes Pharmacological prophylaxis: apixaban Lines/Catheters IV Catheter Type: Saline Lock Mcgee in Place: No Assessment/Plan Hospital Course 88 y/o female pmh HTN, pa fib, hypothyroidism, h/o DVT, HLD, osteoporosis, gout, admitted 09/12/2018 w/ SVT requiring cardioversion. Assessment/Plan #desaturation-unclear etiology. Cxr negative. consider atelectasis. ABG with minimal c02 retention yesterday -incentive spirometer. -supplemental 02, will try to wean -nebs prn #slowed mentation-resolved, could have been due to sedating meds -minimize sedating meds, will stop tramadol -ctm #CONNIE-cr up from 1.2-->1.6. Could be volume down -urine lytes -PVR -NS 100cc /hr x 12 hours -ctm -avoid nephrotoxic meds #constipation -miralax. #SVT-s/p cardioversion, thought to be aflutter -eliquis 5mg po BID -amiodarone #Pafib -eliquis, rate control #HLD -home meds #hypothyroidism -home meds #gout -allopurinol #HTN- -home meds #debility -continue PT, will need PT at SNF when medically stable for discharge. TARSHA CHEUNG MD Sep 19, 2018 09:16
[2018-09-19] MEDS: POLYETHYLENE GLYCOL 17 GM PACKET PO SCH (09:43)
[2018-09-19] MEDS: SOD FERRIC GLUC COMPLX 125 MG in SOD CHLORIDE 0.9% 100 ML IVPB SCH (13:46)
[2018-09-19] MEDS: ATORVASTATIN 10 MG TAB PO SCH (22:36)
[2018-09-20] VITALS (9 sets, daily range): BP systolic 119–142; BP diastolic 58–63; PULSE 69–78; RESP 18–20
[2018-09-20] MEDS: IPRATROPIUM (NEB) 0.5 MG/2.5 ML AMP HHN SCH ×3 (01:45→14:00)
[2018-09-20] MEDS: LEVOTHYROXINE 112 MCG TAB PO SCH (06:18)
--- NOTE | 2018-09-20 08:04 | PN ---
Date/Time of Note Date/Time of Note DATE: 09/20/18 TIME: 08:02 Assessment/Plan VTE Prophylaxis Risk score (from Nsg)>0 risk: 6 SCD applied (from Nsg): Yes SCD contraindicated: other (unconcomfortable) Pharmacological prophylaxis: apixaban Lines/Catheters IV Catheter Type (from Nrs): Saline Lock Urinary Cath still in place: No Assessment/Plan Assessment/Plan 1. SVT without rec 2. Renal fx has improved with dc diuretic and no rec edema 3. Hypoxemia sec to atelectasis 4. Await case management and hopeful dc to [facility] Result Diagram: 09/19/18 0528 09/20/18 0508 Results 24hrs Laboratory Tests Test 09/19/18 10:13 09/20/18 05:08 Stool Occult Blood NEGATIVE Sodium Level 138 Potassium Level 4.3 Chloride Level 102 Carbon Dioxide Level 29 Anion Gap 7 Blood Urea Nitrogen 31 #H Creatinine 1.37 H Est Glomerular Filtrat Rate mL/min Glucose Level 141 Calcium Level 9.0 Subjective 24 Hr Interval Summary Respiratory: No shortness of breath Cardiovascular: No chest pain, No lightheadedness Gastrointestinal: no complaints Genitourinary: no complaints Musculoskeletal: other (legs ache) Exam/Review of Systems Exam Vitals Vital Signs Date Temp Pulse Resp B/P (MAP) Pulse Ox O2 O2 Flow FiO2 Time Delivery Rate 09/20/18 97.5 69 20 134/63 93 Nasal 07:49 (86) Cannula 09/20/18 2.0 04:08 09/17/18 21 13:57 Intake and Output 09/19/18 09/19/18 09/20/18 1515:00 23:00 07:00 IntakeIntake Total 1560 ml BalanceBalance 1560 ml Neck: No jvd Respiratory: clear to auscultation Cardiovascular: regular rate and rhythm Gastrointestinal: soft Extremities: No edema, No tenderness Results Results 24hrs Laboratory Tests Test 09/19/18 10:13 09/20/18 05:08 Stool Occult Blood NEGATIVE Sodium Level 138 Potassium Level 4.3 Chloride Level 102 Carbon Dioxide Level 29 Anion Gap 7 Blood Urea Nitrogen 31 #H Creatinine 1.37 H Est Glomerular Filtrat Rate mL/min Glucose Level 141 Calcium Level 9.0 Medications Medication Current Medications Allopurinol (Zyloprim) 100 mg BID PO Last administered on 09/19/18at 22:36; Admin Dose 100 MG; Start 09/12/18 at 21:00 Apixaban (Eliquis) 5 mg BID PO Last administered on 09/19/18 22:36; Admin Dose 5 MG; Start 09/12/18 at 21:00 Atorvastatin Calcium (Lipitor) 10 mg QHS PO Last administered on 09/19/18 22 :36; Admin Dose 10 MG; Start 09/12/18 at 21:00 Levothyroxine Sodium (Synthroid) 112 mcg BEFORE BREAKFAST PO Last administered on 09/20/18 06:18; Admin Dose 112 MCG; Start 09/13/18 at 07:00 Metoprolol Tartrate (Lopressor) 50 mg BID PO Last administered on 09/19/18 22:36; Admin Dose 50 MG; Start 09/12/18 at 21:00 Pantoprazole (Protonix Tab) 40 mg DAILY PO Last administered on 09/19/18 08:14; Admin Dose 40 MG; Start 09/12/18 at 16:00 Losartan Potassium (Cozaar) 100 mg DAILY PO Last administered on 09/19/18 08:14; Admin Dose 100 MG; Start 09/13/18 at 09:00 Acetaminophen (Tylenol Tab) 650 mg Q6H PRN PO MILD PAIN(1-3)OR ELEVATED TEMP Last administered on 09/18/18 04:04; Admin Dose 650 MG; Start 09/12/18 at 16:30 Ipratropium [place] (Atrovent 0.02% (Neb)) 0.5 mg Q6H RESP THERAPY HHN Last administered on 09/20/18 01:45; Admin Dose 0.5 MG; Start 09/13/18 at 14:00 Nystatin (Nystatin Powder) 1 applic TID TOP Last administered on 09/19/18 22:37; Admin Dose 1 APPLIC; Start 09/14/18 at 21:00 Ferric Sodium Gluconate Complex 125 mg/Sodium Chloride 110 ml @ 110 mls/hr DAILY@1300 IVPB Last administered on 09/19/18 13:46; Admin Dose 110 MLS/HR; Start 09/16/18 at 13:00; Stop 09/20/18 at 13:59 Docusate Sodium (Colace) 200 mg DAILY PO Last administered on 2/24/19at 08:13; Admin Dose 200 MG; Start 09/16/18 at 10:30 Amlodipine Besylate (Norvasc) 5 mg DAILY PO Last administered on 09/19/18at 08:15; Admin Dose 5 MG; Start 09/17/18 at 09:00 Amiodarone HCl (Cordarone) 200 mg BID PO Last administered on 09/19/18at 22:36; Admin Dose 200 MG; Start 09/17/18 at 21:00 Polyethylene Glycol (Miralax) 17 gm DAILY PO Last administered on 09/19/18at 09:43; Admin Dose 17 GM; Start 09/19/18 at 09:30 JOSE LEIVN MD Sep 20, 2018 08:04
[2018-09-20] MEDS ORDERED: AMIO200T4 PO (08:08)
[2018-09-20] MEDS ORDERED: AMLO-145 PO (08:08)
[2018-09-20] MEDS: DOCUSATE SODIUM 100 MG CAP PO SCH (08:39)
[2018-09-20] MEDS: POLYETHYLENE GLYCOL 17 GM PACKET PO SCH (08:39)
[2018-09-20] MEDS: AMIODARONE 200 MG TAB PO SCH (08:40)
[2018-09-20] MEDS: AMLODIPINE 5 MG TAB PO SCH (08:40)
[2018-09-20] MEDS: APIXABAN 5 MG TABLET PO SCH (08:40)
[2018-09-20] MEDS: LOSARTAN 50 MG TAB PO SCH (08:40)
[2018-09-20] MEDS: ALLOPURINOL 100 MG TAB PO SCH (08:41)
[2018-09-20] MEDS: METOPROLOL 50 MG TAB PO SCH (08:41)
[2018-09-20] MEDS: NYSTATIN 30 GM POWDER BTL TOP SCH ×2 (08:42→12:36)
[2018-09-20] MEDS: PANTOPRAZOLE (EC) 40 MG TAB PO SCH (08:53)
[2018-09-20] MEDS: SOD FERRIC GLUC COMPLX 125 MG in SOD CHLORIDE 0.9% 100 ML IVPB SCH (12:36)
--- NOTE | 2018-09-23 13:25 | DS ---
DATE OF ADMISSION: 09/12/2018 DATE OF DISCHARGE: 09/20/2018 An 88-year-old female admitted to the hospital with chest heaviness and evidence of supraventricular tachycardia noted in the ER. PHYSICAL EXAMINATION: VITAL SIGNS: BP 162/95, O2 sat 95% on 2 liters, respirations were 18, pulse was 92. CARDIOPULMONARY: Exam was unrevealing. EXTREMITIES: Revealed 1+ edema. LABORATORY AND DIAGNOSTIC STUDIES: On admission, hematocrit was 31.9, white count was normal, platel et count was normal. On discharge, hematocrit was 30.7, white count and platelet count were normal. Chemistries on admission: Electrolytes normal, BUN 36, creatinine 1.6. B12 and folate were normal. TSH was normal. Free T4 was normal. Liver tests were normal except for slightly elevated alkaline phosphatase at 126. Iron studies: Iron 35, TIBC 283, saturation 12%, ferritin 69.5. Immunoelectro phoresis revealed no monoclonal protein. EKG revealed no acute changes. SVT was noted. Stool for o ccult blood was negative on one occasion. Chest x-ray on admission single AP view: No abnormalities . Nuclear medicine scan revealed no perfusion defect. HOSPITAL COURSE: The patient was rapidly evaluated in the emergency room, required electrocardiovers ion with return of her SVT to sinus rhythm. She was seen in followup by Dr. Devlin. Observing her in the hospital revealed no evidence of recurrence of her SVT on her new cardiac regimen. She had e vidence of mild hypoxemia thought related to atelectasis. At the time of discharge, she was stable, but poorly mobile. DISCHARGE DIAGNOSES: 1. Supraventricular tachycardia having resolved following cardioversion. 2. History of hypertension. 3. 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 4. History of gout, quiescent. PLAN: To be discharged to extended care facility for rehabilitation. MEDICATIONS: Include: 1. Amiodarone 200 mg b.i.d. 2. Amlodipine 5 mg per day. 3. Allopurinol 100 mg b.i.d. 4. Apixaban 5 mg b.i.d. 5. Atorvastatin 10 mg per day. 6. Vitamin D 1000 units per day. 7. B12 1000 mcg per day. 8. Levothyroxine 112 mcg per day. 9. Magnesium oxide 400 b.i.d. 10. Metoprolol 500 mg b.i.d. 11. Protonix 40 mg per day. 12. Valsartan 160 mg per day. DIET: Low salt, low fat. Dictated By: JOSE SCHERER/FRANCIE Conf#: [id number] DID#: [id number] CC: LUDWIN DEVLIN MD;*EndCC*
== END 2018-09-20 18:06 | DRG 281 ==
LOC: E/R 08:53 → 6WM 14:22 → OBSVTOIN 14:22
PROVIDERS: ADMIT Internal Medicine; ATTEND Internal Medicine
PROC: 5A2204Z Restoration of Cardiac Rhythm, Single (ICD-10-PCS; principal; 2018-09-12)
DX: I47.1 Supraventricular tachycardia (principal); I21.A1 Myocardial infarction type 2; I31.3 Pericardial effusion (noninflammatory); J98.11 Atelectasis; N17.9 Acute kidney failure, unspecified; I48.92 Unspecified atrial flutter; I48.0 Paroxysmal atrial fibrillation; D64.9 Anemia, unspecified; E03.9 Hypothyroidism, unspecified; E78.5 Hyperlipidemia, unspecified; I10 Essential (primary) hypertension; K59.00 Constipation, unspecified; M81.0 Age-related osteoporosis without current pathological fracture; M10.9 Gout, unspecified; M17.0 Bilateral primary osteoarthritis of knee; R41.82 Altered mental status, unspecified; R53.81 Other malaise; Z96.641 Presence of right artificial hip joint; Z86.718 Personal history of other venous thrombosis and embolism; Z79.01 Long term (current) use of anticoagulants; Z87.891 Personal history of nicotine dependence
CPT/HCPCS: 36415; 36600; 71045; 78452; 80048; 80053; 82270; 82550; 82553; 82607; 82728; 82746; 82803; 83540; 83735; 84100; 84439; 84443; 84484; 85025; 85610; 85651; 85730; 86320; 93005; 93017; 93306; 94640; 94664; 96374; 97110; 97161; 97530; A4310; A9500; A9505; J2785; J2916; J3475; J7030

== ENCOUNTER 2019-03-20 11:17 | Emergency (ER) | payer MEDICARE, OTHER ==
[~2019-03-20] VITALS: Ht 165.1 cm; Wt 100.0 kg
[~2019-03-20 11:17] MED LIST changes: +ACET-141 PO; -ADV25050 INH; +ALLO100T PO; +AMIO200T4 PO; +AMLO-145 PO; -ATOR10TA23 PO; +ATOR10TA65 PO; -CALC500T91 PO; +CHOL100062 PO; -CHOL200073 PO; -COLC0.6T6 PO; -DOCU-216 PO; -FOLI-49 PO; +FURO40SO PO; -FURO40TA4 PO; -LEVO112T2 PO; +LEVO112T42 PO; +MAGN400T28 PO; -MAGN64TA10 PO; -METO-319 PO; +METO-429 PO; +PANT40TA3 PO; -PANT40TA4 PO; +VALS160T20 PO; -VALS160T27 PO; -ZOLP5TAB PO
[2019-03-20 11:23] VITALS: Ht 165.1 cm; Wt 100.0 kg
[2019-03-20] MEDS ORDERED: ACETAMINOPHEN 500 MG TAB PO STA (11:29)
[2019-03-20 13:14] VITALS: BP 139/89; PULSE 90; RESP 20
== END 2019-03-20 13:56 | disposition home or self-care (01) ==
LOC: E/R 11:17
DX: S52.501A Unspecified fracture of the lower end of right radius, initial encounter for closed fracture (principal); R40.2142 Coma scale, eyes open, spontaneous, at arrival to emergency department; R40.2252 Coma scale, best verbal response, oriented, at arrival to emergency department; R40.2362 Coma scale, best motor response, obeys commands, at arrival to emergency department; I11.0 Hypertensive heart disease with heart failure; I50.9 Heart failure, unspecified; W18.30XA Fall on same level, unspecified, initial encounter; Y92.9 Unspecified place or not applicable; Z85.3 Personal history of malignant neoplasm of breast; Z87.891 Personal history of nicotine dependence